=== PATIENT | female | born 1965 | race Caucasian/White ===

== ENCOUNTER 2020-06-13 07:59 | Outpatient (REF) | payer BC, SELFPAY | END 2020-06-13 08:00 | disposition home or self-care (01) | LOC: HO.BBR 07:59 | PROVIDERS: Visit Provider Internal Medicine Medical Oncology | DX: D75.1 Secondary polycythemia (principal) | CPT/HCPCS: 36415; 85018; 99195 ==

== ENCOUNTER 2020-07-11 08:22 | Outpatient (REF) | payer BC, SELFPAY | END 2020-07-11 08:23 | disposition home or self-care (01) | LOC: HO.BBR 08:22 | PROVIDERS: PCP Internal Medicine; Visit Provider Internal Medicine Medical Oncology | DX: D75.1 Secondary polycythemia (principal) | CPT/HCPCS: 85018; 99195 ==

== ENCOUNTER 2020-07-15 13:24 | Outpatient (REF) | payer BC, SELFPAY ==
--- NOTE | 2020-07-15 13:31 | MM_ITS ---
EXAMINATION: MM DIAGNOSTIC DIGITAL BREAST TOMOSYNTHESIS, RIGHT US DIAGNOSTIC ULTRASOUND BREAST, RIGHT CLINICAL INFORMATION: Ridge-like linear palpable fullness medial right breast. Family history breast cancer in sister. No pain or discharge. The lifetime risk of breast cancer based on the Tyrer-Cuzick Model is 18%. COMPARISON: Mammography: 04/11/2020, 04/04/2020, 03/30/2019, 03/15/2018, 02/16/2016 TECHNIQUE: Digital breast tomosynthesis is performed in both the craniocaudal and mediolateral oblique views along with computer-aided detection (CAD). Synthesized 2D images are generated from the tomosynthesis. Ultrasound right breast is targeted to the area of clinical concern medial right breast. Grayscale imaging and color Doppler are performed without and with harmonics. Patient is able to point to area of concern at time of imaging. FINDINGS: The breasts are heterogeneously dense, which may obscure small masses (ACR BI-RADS breast composition Category c). Parenchymal pattern is similar to prior studies. There is no mass or developing density or architectural abnormality in the area of clinical concern. There is no skin thickening or coarsening of the Prabhjot's ligaments. Some calcifications mid central 12:00 position are again similar to prior diagnostic study. They will be reassessed again with magnification views at 20 and follow-up in approximately 3 months. Ultrasound right breast demonstrates no cystic or solid mass or architectural abnormality. No skin thickening or coarsening of the Prabhjot's ligaments. There is an incidental vein just beneath the skin in the area of palpable concern with normal color flow. No venous thrombosis. Results are discussed with the patient at time of visit. Patient's palpable concern may be managed based on the clinical impression. If clinically indicated, further evaluation may be considered with surgical consult. Decision to proceed with biopsy should be based on clinical grounds and degree of clinical concern. Otherwise, patient due for follow-up right mammography in 3 months to include magnification views for the right breast calcifications, unrelated to today's clinical concern. MM/MM tomosynthesis diagnostic RT IMPRESSION: Mammography shows no significant change from prior study. Unremarkable targeted right breast ultrasound. ASSESSMENT: BI-RADS 3: Probably Benign RECOMMENDATION: 1. Patient's palpable concern may be managed based on the clinical impression. 2. Otherwise, diagnostic right mammography in 3 months for planned follow up of the probable benign calcifications unrelated to today's clinical concern. This patient's information was entered into a reminder system with a target due date for their next mammogram.
== END 2020-07-15 13:25 | disposition home or self-care (01) ==
LOC: HO.MAMMO 13:24
PROVIDERS: PCP Internal Medicine; Visit Provider Internal Medicine
DX: N63.10 Unspecified lump in the right breast, unspecified quadrant (principal)
CPT/HCPCS: 76641; 77061; 77065

== ENCOUNTER 2020-08-08 08:26 | Outpatient (REF) | payer BC, SELFPAY | END 2020-08-08 08:27 | disposition home or self-care (01) | LOC: HO.BBR 08:26 | PROVIDERS: Visit Provider Internal Medicine Medical Oncology | DX: D75.1 Secondary polycythemia (principal) | CPT/HCPCS: 36415; 85018 ==

== ENCOUNTER 2020-09-12 08:31 | Outpatient (REF) | payer BC, SELFPAY | END 2020-09-12 08:32 | disposition home or self-care (01) | LOC: HO.BBR 08:31 | PROVIDERS: Visit Provider Internal Medicine Medical Oncology | DX: D75.1 Secondary polycythemia (principal) | CPT/HCPCS: 85018; 99195 ==

== ENCOUNTER 2020-10-24 08:02 | Outpatient (REF) | payer BC, SELFPAY | END 2020-10-24 08:03 | disposition home or self-care (01) | LOC: HO.BBR 08:02 | PROVIDERS: Visit Provider Internal Medicine Medical Oncology | DX: D75.1 Secondary polycythemia (principal) | CPT/HCPCS: 85014; 85018; 99195 ==

== ENCOUNTER → 2020-11-11 10:07 | Outpatient (BNV) | payer BC, SELFPAY | PROVIDERS: PCP Internal Medicine; Visit Provider Internal Medicine Medical Oncology | DX: D75.1 Secondary polycythemia (principal) | CPT/HCPCS: 99213; 99214 ==

== ENCOUNTER 2020-11-13 08:39 | Outpatient (REF) | payer BC, SELFPAY ==
--- NOTE | ~2020-11-13 | MM_ITS ---
EXAMINATION: MM DIAGNOSTIC DIGITAL BREAST TOMOSYNTHESIS, RIGHT CLINICAL INFORMATION: Six-month Follow up right breast calcifications 3 months after negative workup for right breast palpable abnormality.. COMPARISON: Mammography: July 15, 2020 and studies dating back to January 20, 2012 TECHNIQUE: Digital breast tomosynthesis is performed in both the craniocaudal and mediolateral oblique views along with computer-aided detection (CAD). Synthesized 2D images are generated from the tomosynthesis. Spot magnification views of the right breast in craniocaudal and 90 degree mediolateral views. FINDINGS: The breasts are heterogeneously dense, which may obscure small masses (ACR BI-RADS breast composition Category c). There are no new significant masses, abnormal calcifications, or other abnormalities. There is stable appearance of the grouping of calcifications within the mid superior lateral aspect of the right breast. Results are provided to the patient at time of visit by the technologist. MM/MM tomosynthesis diagnostic RT IMPRESSION: There are no significant changes from prior study. ASSESSMENT: BI-RADS 3: Probably Benign RECOMMENDATION: Diagnostic mammography in 6 months for screening left breast study and diagnostic right breast study for calcifications.. This patient's information was entered into a reminder system with a target due date for their next mammogram.
== END 2020-11-13 08:40 | disposition home or self-care (01) ==
LOC: HO.MAMMO 08:39
PROVIDERS: PCP Internal Medicine; Visit Provider Internal Medicine
DX: R92.1 Mammographic calcification found on diagnostic imaging of breast (principal)
CPT/HCPCS: 77061; 77065

== ENCOUNTER 2020-12-11 09:33 | Outpatient (REF) | payer BC, SELFPAY | END 2020-12-11 09:34 | disposition home or self-care (01) | LOC: HO.BBR 09:33 | PROVIDERS: Visit Provider Internal Medicine Medical Oncology | DX: D75.1 Secondary polycythemia (principal) | CPT/HCPCS: 36415; 85018; 99195 ==

== ENCOUNTER 2021-01-16 08:00 | Outpatient (REF) | payer BC, SELFPAY | END 2021-01-16 08:01 | disposition home or self-care (01) | LOC: HO.BBR 08:00 | PROVIDERS: Visit Provider Internal Medicine Medical Oncology | DX: D75.1 Secondary polycythemia (principal) | CPT/HCPCS: 36415; 85018; 99195 ==

== ENCOUNTER 2021-02-06 14:19 | Inpatient (IN) | payer BC, SELFPAY ==
--- NOTE | ~2021-02-06 | CT_ITS ---
EXAMINATION: CT ABDOMEN AND PELVIS WITH CONTRAST CLINICAL INFORMATION: Lower abdominal pain and nausea COMPARISON: 08/04/2008 TECHNIQUE: Multidetector volumetric images were obtained from the superior aspect of the liver through the pubic symphysis following administration 85 mL of Omnipaque 350 intravenous contrast. Sagittal and coronal reformatted images were obtained on the technologist's workstation. Oral contrast: No This CT examination was performed using dose optimization techniques as appropriate, variously including the following: *Automated exposure control *Adjustment of mA and/or kV according to patient size (this includes techniques or standardized protocols for targeted exams where dose is matched to indication/reason for exam; i.e. extremities or head) *Use of iterative reconstruction technique DLP: 536 mGy-cm FINDINGS: LUNG BASES: The visualized lung bases are unremarkable. LIVER, GALLBLADDER, AND BILIARY TREE: The liver is normal in size, shape, and attenuation. No focal hepatic lesion or biliary ductal dilatation is present. The gallbladder is surgically absent. PANCREAS: Unremarkable. SPLEEN: Unremarkable. ADRENAL GLANDS: Unremarkable. KIDNEYS AND URETERS: There is a 3 mm nonobstructing calculus at the lower pole of the right kidney, similar to the previous study. Peripheral cortical scarring. BLADDER: Unremarkable. GASTROINTESTINAL TRACT: Circumferential wall thickening of the sigmoid colon in a region of diverticulosis with hazy attenuation/stranding of the adjacent fat compatible with acute diverticulitis. Soft tissue thickening extends toward the pelvic sidewall with 2 small extraluminal foci of gas suggesting a contained perforation. There is a fluid component in the expected location of the left adnexa which may represent an ovarian cyst or potentially a developing abscess. This fluid collection/structure measures approximately 3.5 x 1.5 cm. No obstruction. Normal appendix. ABDOMINAL WALL: Small fat-containing periumbilical hernia. LYMPH NODES: Normal. VASCULAR: Atherosclerotic calcifications of the distal abdominal aorta. PELVIC VISCERA: The uterus and right adnexa appear normal. OSSEOUS STRUCTURES: Severe degenerative disc disease at L4-L5 and L5-S1. CT/CT abdomen pelvis w con IMPRESSION: Sigmoid diverticulitis with evidence of a contained perforation and possible developing abscess in the region of the left adnexa. No obstruction.
[2021-02-06 14:57] VITALS: BP 146/101; PULSE 121; RESP 16; TEMP 37.1; O2SAT 98; BMI 27.3
[2021-02-06 15:43] LABS: MANUAL DIFF FLAG NO
[2021-02-06 15:45] LABS: Basophils Percent Auto 0.2 % (0-2); Glucose Urine UA NEG (NEG); Hematocrit 40.9 % (37-47); Hemoglobin 13.4 g/dl (12.0-16.0); Imm Gran Pct Auto 0.5 % (0.0-0.4); Leukocyte Esterase Urine NEG (NEG); Lymphocytes Absolute Auto 0.9 X10*3/uL (1.2-4.9); Mean Corpuscular HGB Conc 32.8 g/dl (31.0-35.0); Mean Corpuscular Hemoglobin 27.2 pg (27.0-33.0); Mean Corpuscular Volume 83.1 fL (80-98); Mean Platelet Volume 10.2 fL (9.4-12.3); Monocytes Absolute Auto 0.9 X10*3/uL (0.1-1.2); Monocytes Percent Auto 4.8 % (2-11); Neutrophils Absolute Auto 16.9 X10*3/uL (2.0-8.3); Neutrophils Percent Auto 89.5 % (45-73); Nitrite Urine NEG (NEG); Platelet Count 236 X10*3/uL (160-400); Red Blood Count 4.92 X10*6/uL (4.20-5.50); Red Cell Distribution Width 16.2 % (11.0-16.0); Urine Blood TRACE (NEG); Urine Ketones NEG (NEG); Urine Protein NEG (NEG-TRACE); White Blood Count 18.8 X10*3/uL (4.8-10.8)
[2021-02-06] MEDS: 0.9 % Sodium Chloride 1,000 ML 999 ML IVCONT (15:45)
[2021-02-06] MEDS: Morphine Sulfate 4 MG/ML CARTRIDGE IVPUSH ×2 (15:45→21:25)
[2021-02-06] MEDS: ondansetron HCL 4 MG/2 ML VIAL IVPUSH (15:45)
[2021-02-06 15:46] VITALS: BP 138/76; PULSE 91; RESP 16; TEMP 37.1; O2SAT 96
[2021-02-06 15:46] LABS: Appearance Urine CLEAR; Color Urine YELLOW
[2021-02-06 15:50] LABS: INTERNATIONAL NORM RATIO 1.2 (0.9-1.1); Prothrombin Time 14.1 SEC (10.8-13.0)
[2021-02-06 16:03] LABS: WBC Urine 0-2 /HPF (0-4)
[2021-02-06 16:04] LABS: Squamous Epithelial Cell Urine 1+ /LPF
[2021-02-06 16:09] LABS: Lactic Acid 0.8 mmol/L (0.5-2.0)
[2021-02-06 16:13] LABS: Alanine Aminotransferase 17 U/L (0-31); Albumin Level 4.2 g/dL (3.5-5.0); Alkaline Phosphatase 96 U/L (39-117); Anion Gap 16 (12-20); Aspartate Amino Transferase 20 U/L (5-31); Bilirubin Total 1.6 mg/dL (0.0-1.0); Blood Urea Nitrogen 13 mg/dL (9-16); Calcium 9.1 mg/dL (8.4-10.2); Carbon Dioxide 19 mmol/L (22-29); Chloride 108 mmol/L (96-108); Creatinine Clr Calc Pharmacy 486.1; Estimated Glomerular Filt Rate > 60; Glucose Random 122 mg/dL (60-115); Magnesium 1.8 mg/dL (1.6-2.6); Potassium 3.6 mmol/L (3.3-5.1); Sodium 139 mmol/L (135-145); Total Protein 6.9 g/dL (6.5-8.0)
[2021-02-06] MEDS: iohexoL 350 MG/ML 100 ML INFUS..BTL IV (16:30)
--- NOTE | 2021-02-06 17:04 | ED_ITS ---
HPI - Abdominal Pain General Chief Complaint: Abdominal Pain Stated Complaint: LOWER ABD PAIN VOMITING Time Seen by Provider: 02/06/21 14:47 Source: patient Mode of arrival: ambulatory Limitations: no limitations History of Present Illness HPI narrative: 55-year-old female with a past medical history of IBS, polycyt hemia, and anxiety presenting to the ED with complaints of lower abdominal pain that is now diffuse with associated nausea/vomiting since yesterday worse today. Denies any fevers, chills, dizziness, lightheadedness, chest pain, shortness of breath, back pain, dysuria, hematuria, increased urgency/frequency, black or bloody stools, diarrhea or constipation, recent travel or sick contacts or any other symptoms complaints or concerns at this time. Reports she is not on any blood thinners. MD elicited complaint: abdominal pain Pertinent past history: other (IBS) Onset (ago): day(s) (Since yesterday worse today) Pain Consistency: constant Location: diffuse Severity: severe Pain scale (0-10): 10 Quality: aching Relieving factors: nothing Associated symptoms: nausea and vomiting Treatments prior to arrival: other (Gas-X with no symptomatic relief) Related Data Home Medications Medication Instructions Recorded Confirmed aspirin 81 mg PO DAILY 11/11/20 11/11/20 levocetirizine [Xyzal] 5 mg PO DAILY 11/11/20 11/11/20 ibuprofen 200 mg tablet 400 mg PO Q6H PRN 01/07/21 Allergies Allergy/AdvReac Type Severity Reaction Status Date / Time acetaminophen [From Tylox] Allergy Unknown VOMITING Verified 01/07/21 08:57 codeine [Codeine] Allergy Unknown VOMITING, Verified 01/07/21 08:57 nausea/dizziness/vomiting Tylox Allergy Unknown nausea, Verified 01/07/21 08:57 vomitting, dizziness, nausea/dizziness/vomiting varenicline [From Chantix] AdvReac Irritable Verified 01/07/21 08:57 Codeine Sulfate Allergy Unknown nausea, Uncoded 11/11/20 11:24 vomitting, dizziness From Tylox Allergy Unknown VOMITING Uncoded 11/11/20 11:24 Review of Systems Review of Systems Constitutional : No Weight loss, No Fever, No Chills, No Night Sweats, No Fatigue, NoMalaise ENT/Mouth: No ear pain, No sore throat, No Difficulty swallowing Cardiovascular : No Chest Pain, No SOB, No Dyspnea on Exertion, No Orthopnea, NoEdema, No Palpitations Respiratory : No Cough, No Sputum, No Wheezing, No Dyspnea Gastrointestinal : Positive nausea/vomiting/abdominal pain, No Diarrhea, No blood streaked emesis, No coffee-ground emesis, No gross hematemesis, No blood streak stool, No gross hematochezia, No Melena Genitourinary : No irregular bleeding, No Dysuria, No Urinary Frequency, No Hematuria,No Urinary Incontinence, No Urgency, No Flank Pain Musculoskeletal : No joint pain, No Myalgias, No Joint Swelling Skin : No Skin Lesions, No rash Neuro : No Weakness, No Numbness, No Paresthesias, No Loss of Consciousness, NoDizziness, No Headache Psych : No Social Issues, Heme/Lymph: No Bruising, No Bleeding,No Lymphadenopathy Endocrine : No Polyuria, No Polydipsia, No Temperature Intolerance Yes all other systems are reviewed and are negative Physical Exam Vital Signs: Vital Signs: Last Vital Signs Temp 98.8 F 02/06/21 15:46 Pulse 91 02/06/21 15:46 Resp 16 02/06/21 15:46 BP 138/76 02/06/21 15:46 Pulse Ox 96 02/06/21 15:46 Body Mass Index 27.3 vital signs have been reviewed as normal and appeared to be correct. Blood pressure hypertensive 146/101. Heart rate tachycardic at 0121. Respiration rate normal. Temperature normal. Oxygen saturation normal. Appearance: Alert. Oriented X3. No acute distress. Head: Normal external exam. Normocephalic. Eyes: PERRLA. EOMI. Conjunctiva and sclera normal. Eyelids normal. ENT: Pharynx normal. Uvula midline. Moist mucous membranes. No trismus noted. No drooling noted. No muffled voice noted. Neck: Normal inspection. Neck supple. FROM. No adenopathy. No meningeal signs. CVS: Normal heart rate and rhythm. Heart sound normal. No murmurs noted. Pulses normal throughout. Respiratory: No respiratory distress. Painless inspiration. Breath sounds normal. No wheezes/rales/rhonchi noted. Chest nontender. No accessory muscle usage noted or decreased air movement noted. Abdomen: Soft and moderate to palpation diffusely with guarding and rebound tenderness. Nondistended. No rigidity. Bowel sounds normal in all 4 quadrants. No distention noted. No organomegaly noted. No visible injury noted. Negative Rovsing sign. Negative obturator's sign. Negative psoas sign. Negative Pablo sign. Back: No CVA tenderness. Full range of motion noted. Skin: Skin warm and dry. Normal skin color. Normal skin turgor. No rashes/lesions/lacerations noted. Extremities: Extremities exhibit normal range of motion. Extremities nontender. Neuro: Oriented X 3. No motor deficit. No sensory deficit. Reflexes normal. Normal steady gait. Course Course Course Narrative: 17pm - labs returned patient has an elevated white blood cell count 68946. Total bilirubin 1.6. Glucose 122. Otherwise all other labs are within normal limits. UA within normal limits no evidence of UTI. - CT scan of abdomen and pelvis with IV contrast reveals sigmoid diverticulitis with evidence of contained perforation and possible developing abscess in the region of the left adnexa. No obstruction. - therefore Zosyn was ordered at this time - I consulted with Dr. Nichole the general surgeon who will admit at this time - patient updated at this time she understands and agrees with this plan. MDM - Abdominal Pain MDM Narrative Medical decision making narrative: 15:10pm - 55-year-old female with a past medical history of IBS, polycythemia, and anxiety presenting to the ED with complaints of lower abdominal pain that is now diffuse with associated nausea/vomiting since yesterday worse today. Plan:Labs, blood cultures, lactic acid, fluids and a CT scan of abdomen and pelvis. Provide 4 mg of Zofran and 4 mg of morphine then re-evaluate. Medical Records Attestation: I reviewed the patient's medical records. Lab Data Attestation: I reviewed the patient's lab results. Result diagrams: 02/06/21 15:34 02/06/21 15:34 Labs: Lab Results 02/06/21 02/06/21 02/06/21 Range/Units 15:34 15:34 15:34 WBC 18.8 H (4.8-10.8) X10*3/uL RBC 4.92 (4.20-5.50) X10*6/uL Hgb 13.4 (12.0-16.0) g/dl Hct 40.9 (37-47) % MCV 83.1 (80-98) fL MCH 27.2 (27.0-33.0) pg MCHC 32.8 (31.0-35.0) g/dl RDW 16.2 H (11.0-16.0) % Plt Count 236 (160-400) X10*3/uL MPV 10.2 (9.4-12.3) fL Immature Gran % (Auto) 0.5 H (0.0-0.4) % Neut % (Auto) 89.5 H (45-73) % Lymph % (Auto) 5.0 L (20-40) % [place] % (Auto) 4.8 (2-11) % Eos % (Auto) 0.0 (0-4) % Baso % (Auto) 0.2 (0-2) % Lymph # (Auto) 0.9 L (1.2-4.9) X10*3/uL [place] # (Auto) 0.9 (0.1-1.2) X10*3/uL Eos # (Auto) 0.0 (0.0-0.4) X10*3/uL Baso # (Auto) 0.0 (0.0-0.2) X10*3/uL Abs Immat Gran (auto) 0.10 H (0.00-0.03) X10*3/uL Absolute Neuts (auto) 16.9 H (2.0-8.3) X10*3/uL Absolute Nucleated RBC 0.000 (0.0-0.012) X10*3/uL Nucleated RBC % (auto) 0.0 (0.0-0.2) /100WBC PT 14.1 H (10.8-13.0) SEC INR 1.2 H (0.9-1.1) Sodium 139 (135-145) mmol/L Potassium 3.6 (3.3-5.1) mmol/L Chloride 108 (96-108) mmol/L Carbon Dioxide 19 L (22-29) mmol/L Anion Gap 16 (12-20) BUN 13 (9-16) mg/dL Creatinine 0.71 (0.5-1.4) mg/dL Estim Creat Clear Calc 486.1 Estimated GFR > 60 Random Glucose 122 H (60-115) mg/dL Lactic Acid (0.5-2.0) mmol/L Calcium 9.1 (8.4-10.2) mg/dL Magnesium 1.8 (1.6-2.6) mg/dL Total Bilirubin 1.6 H (0.0-1.0) mg/dL AST 20 D (5-31) U/L ALT 17 (0-31) U/L Alkaline Phosphatase 96 (39-117) U/L Total Protein 6.9 (6.5-8.0) g/dL Albumin 4.2 (3.5-5.0) g/dL Urine Color Urine Appearance Urine pH (5.0-8.0) Ur Specific [place] (1.005-1.025) Urine Protein (NEG-TRACE) MG/DL Urine Glucose (UA) (NEG) MG/DL Urine Ketones (NEG) MG/DL Urine Blood (NEG) Urine Nitrite (NEG) Ur Leukocyte Esterase (NEG) Urine RBC (0) /HPF Urine WBC (0-4) /HPF Ur Squamous Epith Cells /LPF Urine Bacteria /LPF 02/06/21 02/06/21 Range/Units 15:34 15:34 WBC (4.8-10.8) X10*3/uL RBC (4.20-5.50) X10*6/uL Hgb (12.0-16.0) g/dl Hct (37-47) % MCV (80-98) fL MCH (27.0-33.0) pg MCHC (31.0-35.0) g/dl RDW (11.0-16.0) % Plt Count (160-400) X10*3/uL MPV (9.4-12.3) fL Immature Gran % (Auto) (0.0-0.4) % Neut % (Auto) (45-73) % Lymph % (Auto) (20-40) % [place] % (Auto) (2-11) % Eos % (Auto) (0-4) % Baso % (Auto) (0-2) % Lymph # (Auto) (1.2-4.9) X10*3/uL [place] # (Auto) (0.1-1.2) X10*3/uL Eos # (Auto) (0.0-0.4) X10*3/uL Baso # (Auto) (0.0-0.2) X10*3/uL Abs Immat Gran (auto) (0.00-0.03) X10*3/uL Absolute Neuts (auto) (2.0-8.3) X10*3/uL Absolute Nucleated RBC (0.0-0.012) X10*3/uL Nucleated RBC % (auto) (0.0-0.2) /100WBC PT (10.8-13.0) SEC INR (0.9-1.1) Sodium (135-145) mmol/L Potassium (3.3-5.1) mmol/L Chloride (96-108) mmol/L Carbon Dioxide (22-29) mmol/L Anion Gap (12-20) BUN (9-16) mg/dL Creatinine (0.5-1.4) mg/dL Estim Creat Clear Calc Estimated GFR Random Glucose (60-115) mg/dL Lactic Acid 0.8 (0.5-2.0) mmol/L Calcium (8.4-10.2) mg/dL Magnesium (1.6-2.6) mg/dL Total Bilirubin (0.0-1.0) mg/dL AST (5-31) U/L ALT (0-31) U/L Alkaline Phosphatase (39-117) U/L Total Protein (6.5-8.0) g/dL Albumin (3.5-5.0) g/dL Urine Color YELLOW Urine Appearance CLEAR Urine pH 6.0 (5.0-8.0) Ur Specific [place] 1.010 (1.005-1.025) Urine Protein NEG (NEG-TRACE) MG/DL Urine Glucose (UA) NEG (NEG) MG/DL Urine Ketones NEG (NEG) MG/DL Urine Blood TRACE (NEG) Urine Nitrite NEG (NEG) Ur Leukocyte Esterase NEG (NEG) Urine RBC 1-4 (0) /HPF Urine WBC 0-2 (0-4) /HPF Ur Squamous Epith Cells 1+ /LPF Urine Bacteria NONE /LPF Imaging Data CT scan of abdomen and pelvis with IV contrast: Attestation: I personally reviewed and interpreted this imaging study as follows: Radiologist's impression: FINDINGS: LUNG BASES: The visualized lung bases are unremarkable. LIVER, GALLBLADDER, AND BILIARY TREE: The liver is normal in size, shape, and attenuation. No focal hepatic lesion or biliary ductal dilatation is present. The gallbladder is surgically absent. PANCREAS: Unremarkable. SPLEEN: Unremarkable. ADRENAL GLANDS: Unremarkable. KIDNEYS AND URETERS: There is a 3 mm nonobstructing calculus at the lower pole of the right kidney, similar to the previous study. Peripheral cortical scarring. BLADDER: Unremarkable. GASTROINTESTINAL TRACT: Circumferential wall thickening of the sigmoid colon in a region of diverticulosis with hazy attenuation/stranding of the adjacent fat compatible with acute diverticulitis. Soft tissue thickening extends toward the pelvic sidewall with 2 small extraluminal foci of gas suggesting a contained perforation. There is a fluid component in the expected location of the left adnexa which may represent an ovarian cyst or potentially a developing abscess. This fluid collection/structure measures approximately 3.5 x 1.5 cm. No obstruction. Normal appendix. ABDOMINAL WALL: Small fat-containing periumbilical hernia. LYMPH NODES: Normal. VASCULAR: Atherosclerotic calcifications of the distal abdominal aorta. PELVIC VISCERA: The uterus and right adnexa appear normal. OSSEOUS STRUCTURES: Severe degenerative disc disease at L4-L5 and L5-S1. CT/CT abdomen pelvis w con IMPRESSION: Sigmoid diverticulitis with evidence of a contained perforation and possible developing abscess in the region of the left adnexa. No obstruction. Critical Care Time Critical Care Time Critical Care Time: Yes Total Critical Care Time: 60 Attestation: I personally attest to this time spent taking care of the patient Discharge Plan Discharge Clinical Impression: Diverticulitis of colon with perforation Patient Disposition: Admitted As Inpatient Prescriptions: No Action aspirin 81 mg Tablet 81 mg PO DAILY RF: 0 levocetirizine [Xyzal] 5 mg Tablet 5 mg PO DAILY RF: 0 PMFSH Past Medical History Attestation statement: The following information was validated with the patient. Medical History Anxiety Cholecystectomy planned Colon polyps Polycythemia Surgical History H/O tubal ligation Previous back surgery Family History Family History Mother Heart disease Father Heart disease Cancer Brother Heart disease Bladder cancer Sister Breast cancer Social History Social History Alcohol intake: never Patient Tobacco Use Status: Current everyday Tobacco user Use of substances other than those prescribed or required for medical reasons: No Substance Use Type: Marijuana Advance Directives: No Advance Directives Information Provided: Yes Patient : No
--- NOTE | 2021-02-06 18:00 | PHA.MEDREC ---
Pharmacy Consult ? Medication Reconciliation Pharmacy has completed the medication reconciliation.
[2021-02-06] MEDS: Piperacillin Sodium/Tazobactam 3.375 GM in 0.9 % Sodium Chloride 50 ML IV (18:02)
[2021-02-06 18:44] LABS: COVID-19 Test Negative (Negative)
[2021-02-06 20:37] VITALS: BP 149/78; PULSE 93; RESP 19; TEMP 37.1; O2SAT 99
[2021-02-06] MEDS: Heparin Sodium,Porcine 5,000 UNIT/ML VIAL 5000 UNIT SUBCUT (21:28)
[2021-02-06] MEDS: 0.9 % Sodium Chloride 1,000 ML 125 ML IVCONT (21:30)
[2021-02-06 21:36] VITALS: BP 164/89; PULSE 90; RESP 20
[2021-02-06 22:14] VITALS: BP 140/76; PULSE 85; RESP 20
[2021-02-07] VITALS (10 sets, daily range): BP systolic 131–160; BP diastolic 63–83; PULSE 85–101; RESP 14–18; TEMP 36.6–37.7; O2SAT 95–98
[2021-02-07] MEDS: Piperacillin Sodium/Tazobactam 3.375 GM in 0.9 % Sodium Chloride 50 ML IV ×5 (00:33→23:53)
[2021-02-07] MEDS: Morphine Sulfate 2 MG/ML CARTRIDGE IVPUSH ×3 (01:05→10:14)
[2021-02-07] MEDS: Heparin Sodium,Porcine 5,000 UNIT/ML VIAL 5000 UNIT SUBCUT ×3 (04:21→21:11)
[2021-02-07] MEDS: 0.9 % Sodium Chloride 1,000 ML 125 ML IVCONT ×3 (06:16→21:20)
[2021-02-07 07:27] LABS: Hematocrit 38.8 % (37-47); Hemoglobin 12.4 g/dl (12.0-16.0); Mean Corpuscular Volume 84.5 fL (80-98); Mean Platelet Volume 10.9 fL (9.4-12.3); Platelet Count 211 X10*3/uL (160-400); Red Blood Count 4.59 X10*6/uL (4.20-5.50); Red Cell Distribution Width 16.6 % (11.0-16.0); White Blood Count 16.9 X10*3/uL (4.8-10.8)
[2021-02-07] MEDS: ondansetron HCL 4 MG/2 ML VIAL IVPUSH ×2 (08:06→17:19)
[2021-02-07] MEDS: Acetaminophen 325 MG TABLET 650 MG PO (11:56)
--- NOTE | 2021-02-07 12:37 | MHC.CM.PN ---
CM MET WITH PT WHO REPORTS SHE LIVES WITH HER AND IS INDEPENDENT WITH ALL CARE AND MOBILITY. PT REPORTS HER PCP IS NIRAJ NICHOLE. PT COMPLETED A HCP TODAY NAMING HER , PIETRO, HER ONLY AGENT. CURRENT DC PLAN IS HOME WITH NO SERVICES FAMILY TO TRANSPORT
--- NOTE | 2021-02-07 14:29 | PM.HPGS ---
History of Present Illness History of Present Illness Date of Service: 02/07/21 Chief complaint: microperforated diverticulitis Narrative: Amanda Diaz is a 55 year old female who was in her normal state of health until 3 days ago when she developed mild left lower quadrant sharp pain. She reports it felt like a gas bubble. She took gas aid several times without any relief. She noted that the abdominal discomfort continue to worsen. The pain was initially 2/10 on a pain scale but by yesterday the pain was a 10/10 on a pain scale. Patient also tried ibuprofen for pain control without any relief. Patient reports the worst portion of the abdominal pain was in the left lower quadrant but she reports that the abdominal wall was sore all over. Patient had several episodes of nausea and vomiting yesterday until she had dry heaves only. Patient's last meal was 2 days ago. Last bowel movement was yesterday morning and consisted of loose stools. Patient came to the emergency department last evening to be evaluated and was found to have a microperforated diverticulitis of the sigmoid colon. There were 2 small gas bubble seen adjacent to the sigmoid colon but there was no evidence of free air. There are multiple diverticuli seen all along the sigmoid colon. Patient also had elevated white blood cell count of 18.8. Patient was admitted to the surgical service was kept NPO placed on Zosyn for IV antibiotics. Patient reports she feels much better today and her pain is about a 2/10. She reports nausea and vomiting have resolved. She is passing gas but has not had a bowel movement since admission. Patient has a low-grade temp of 100 degrees F. white blood cell count is improved to 16.9 from admission white blood cell count of 18.8. Patient does report feeling significantly better. She denies any shortness of breath or chest pain. Review of Systems Review of Systems: Yes all other systems are reviewed and are negative Constitutional: Constitutional: Denies chills, Denies daytime sleepiness, Reports difficulty sleeping, Denies excessive sweating, Reports fatigue, Reports fever(s), Denies headache(s), Reports night sweats, Denies snoring, Denies stops breathing during sleep and Denies weakness Eyes: Eyes: Denies blurry vision, Denies other visual disturbances and Denies requires corrective lenses ENT: Denies bleeding gums, Denies dysphagia, Denies headache(s), Denies hearing loss, Denies sinus pain and Denies sore throat Cardiovascular: Cardiovascular: Denies chest pain, Denies chest pain at rest, Denies chest pain with activity, Denies syncope, Denies irregular heart rhythm, Denies leg edema, Denies lightheadedness, Denies dyspnea, Denies dyspnea on exertion and Denies orthopnea Respiratory: Respiratory: Denies chest congestion, Reports cough, Denies dyspnea, Denies dyspnea on exertion, Denies snoring and Denies wheezing Gastrointestinal: Gastrointestinal: Reports abdominal pain, Denies melena, Reports bloating, Denies constipation, Denies dysphagia, Denies heartburn, Reports diarrhea, Reports nausea and Reports vomiting Genitourinary: Genitourinary: Denies hematuria, Denies nocturia and Denies nipple discharge Musculoskeletal: Musculoskeletal: Denies abnormal gait, Reports back pain, Denies deformity, Reports arthralgias, Denies joint swelling and Denies stiffness Integumentary/Breasts: Skin/Breast: Denies breast pain, Denies breast mass and Denies nipple discharge Neurologic: Denies abnormal gait, Denies syncope, Denies headache(s), Denies seizure-like activity and Denies weakness Psychiatric: Psychiatric: Denies abnormal sleep pattern, Denies anxiety, Denies depression and Denies panic attacks Endocrine: Endocrine: Denies excessive sweating, Reports fatigue, Denies heat intolerance, Denies polyphagia, Denies polydipsia and Denies polyuria Hematologic/Lymphatic: Hematologic/Lymphatic: Denies easy bleeding and Denies easy bruising Allergic/Immunologic: Allergic/Immunologic: Denies wheezing PMFSH Past Medical History Medical History (Updated 02/07/21 @ 14:35 by Katlyn Wren MD) Anxiety Colon polyps Mastocytosis Polycythemia Family History Family History Mother Heart disease Father Heart disease Cancer Brother Heart disease Bladder cancer Sister Breast cancer Brother No problems noted. Sister No problems noted. Sister No problems noted. Sister No problems noted. Surgical History Surgical History (Updated 02/07/21 @ 14:35 by Katlyn Wren MD) H/O lumbar discectomy H/O tubal ligation History of colonoscopy S/P laparoscopic cholecystectomy Social History Social History Household Members: Spouse Housing: House Do you presently have visiting nurse or other home services: No Alcohol intake: never Patient Tobacco Use Status: Current everyday Tobacco user Tobacco use type: Cigarette Cigarettes Per Day: 15 Patient Interested in Nicotine Replacement: No Patient Given Instructions on How to Stop Smoking: No Use of substances other than those prescribed or required for medical reasons: No Substance Use Type: Marijuana Currently Displaying Signs/Symptoms of Drug Intoxication Withdrawal: No Have you been hit, kicked, punched, or otherwise hurt by someone within the past year? If so, by whom?: No Do you feel safe in your current relationship?: Yes Is there a partner from a previous relationship who is making you feel unsafe now?: No Are you made to feel afraid or neglected: No Advance Directives: No Advance Directives Information Provided: Yes Do you have thoughts of harming others: None Do you have a plan to hurt others: No Plan Recently lost weight without trying: No Nutrition Risks: No Nutritional Risk Patient : No : No Poor oral hygiene: No service: No Meds Allergies Allergy/AdvReac Type Severity Reaction Status Date / Time acetaminophen [From Tylox] Allergy Unknown VOMITING Verified 02/07/21 14:37 codeine [Codeine] Allergy Unknown VOMITING, Verified 02/07/21 14:37 nausea/dizziness/vomiting Tylox Allergy Unknown nausea, Verified 02/07/21 14:37 vomitting, dizziness, nausea/dizziness/vomiting varenicline [From Chantix] AdvReac Irritable Verified 02/07/21 14:37 Codeine Sulfate Allergy Unknown nausea, Uncoded 02/07/21 14:37 vomitting, dizziness From Tylox Allergy Unknown VOMITING Uncoded 02/07/21 14:37 Active Medications: Current Medications Generic Name Dose Route Start Last Admin Trade Name Freq PRN Reason Stop Dose Admin Acetaminophen 650 mg 02/06/21 18:24 02/07/21 11:56 Acetaminophen 325 Mg Tablet PO 650 mg Q4H PRN Administration Fever Diphenhydramine HCl 25 mg 02/06/21 18:24 Diphenhydramine Hcl 25 Mg Tablet PO Q4H PRN itching Heparin Sodium (Porcine) 5,000 unit 02/06/21 20:00 02/07/21 11:57 Heparin Sodium,Porcine 5,000 Unit/Ml Vial SUBCUT 5,000 unit Q8H [facility] Administration Sodium Chloride 1,000 mls @ 125 mls/hr 02/06/21 18:30 02/07/21 14:13 Ns IVCONT 125 mls/hr .Q8H [facility] Administration Piperacillin Sod/Tazobactam 50 mls @ 100 mls/hr 02/07/21 00:00 02/07/21 14:15 Sod 3.375 gm/ Sodium Chloride IV Infused Q6H [facility] Infusion Morphine Sulfate 2 mg 02/06/21 18:24 02/07/21 10:14 Morphine Sulfate 2 Mg/Ml Cartridge IVPUSH 2 mg Q3H PRN Administration Pain, Moderate (Pain Scale 4-6 Morphine Sulfate 4 mg 02/06/21 18:24 02/06/21 21:25 Morphine Sulfate 4 Mg/Ml Cartridge IVPUSH 4 mg Q3H PRN Administration Pain, Severe (Pain Scale 7-10) Ondansetron HCl 4 mg 02/06/21 21:22 02/07/21 08:06 Ondansetron Hcl 4 Mg/2 Ml Vial IVPUSH 4 mg Q8H PRN Administration Nausea Pharmacy Consult 1 each 02/06/21 17:18 Consult Rx Perform Med Rec MISCELLANE ONCE PRN Consult order Sodium Chloride 3 ml 02/07/21 00:00 02/07/21 07:57 0.9 % Sodium Chloride Flush 3 Ml Syringe IVFLUSH Not Given QSHIFT [facility] Home Medications Medication Instructions Recorded Confirmed Last Taken Type levocetirizine [Xyzal] 5 mg PO BEDTIME 11/11/20 02/06/21 02/05/21 History aspirin 81 mg PO DAILY 02/06/21 02/06/21 Unknown History ibuprofen 200 mg PO Q6H PRN 02/06/21 02/06/21 02/06/21 History Physical Exam Vital Signs: Vital Signs: Last Vital Signs Temp 100 F 02/07/21 11:43 Pulse 101 H 02/07/21 11:43 Resp 16 02/07/21 11:43 BP 148/63 H 02/07/21 11:43 Pulse Ox 95 02/07/21 11:43 Body Mass Index 27.3 Const: General: cooperative, healthy appearing, comfortable and no acute distress Orientation/consciousness: patient oriented x3 HENMT: Head: Yes normal to inspection, Yes normocephalic and Yes atraumatic Ears: hearing grossly normal bilaterally Mouth: Normal oral and palatal mucosa present Teeth and gingiva: dentition normal Eyes: General: appearance normal, both eyes and all related structures Sclerae: sclerae normal EOM: EOMs intact bilaterally Neck: Neck: Yes normal visual inspection, Yes full ROM, Yes no lymphadenopathy, Yes trachea midline and No lymphadenopathy Thyroid: Thyroid normal Resp: Effort & Inspection: normal respiratory effort, able to speak in complete sentences, respiratory effort not decreased, no grunting and not labored Auscultation: clear to auscultation bilaterally Cardio: Jugular venous distension: no JVD Heart sounds: S1 normal heart sound present and S2 normal heart sound present GI: Inspection: Yes normal to inspection, Yes distended (Softly) and Yes obesity Palpation (GI): Soft to palpation, not firm, Tenderness to palpation present (GI) (Mild tenderness to palpation is suprapubic region in bilateral lower quadra), no guarding, not rigid and No hepatosplenomegaly present Skin: General skin exam: no rashes or lesions noted Neuro: General: patient oriented x3 Cranial nerves: Yes CN's II-XII intact bilaterally Extrem: General: Yes normal to inspection, Yes no joint enlargement, Yes no clubbing, cyanosis or edema and Yes no calf tenderness Psych: Appearance: grossly normal Mental Status: mental status grossly normal Speech and movement: Normal speech and movement present Affect: normal affect Attitude: cooperative Thought process: Normal thought process present Thought content: Normal thought content present Insight: Good insight present (Psych) Judgement: Good judgement present (Psych) Results Results Labs: Short CBC 02/06/21 02/07/21 Range/Units 15:34 06:35 WBC 18.8 H 16.9 H (4.8-10.8) X10*3/uL Hgb 13.4 12.4 (12.0-16.0) g/dl Hct 40.9 38.8 (37-47) % Plt Count 236 211 (160-400) X10*3/uL BMP 02/06/21 15:34 Sodium 139 Potassium 3.6 Chloride 108 Carbon Dioxide 19 L BUN 13 Creatinine 0.71 Calcium 9.1 Liver Function 02/06/21 Range/Units 15:34 Total Bilirubin 1.6 H (0.0-1.0) mg/dL AST 20 D (5-31) U/L ALT 17 (0-31) U/L Alkaline Phosphatase 96 (39-117) U/L Albumin 4.2 (3.5-5.0) g/dL Urine 02/06/21 Range/Units 15:34 Urine Color YELLOW Urine Appearance CLEAR Urine pH 6.0 (5.0-8.0) Ur Specific [place] 1.010 (1.005-1.025) Urine Protein NEG (NEG-TRACE) MG/DL Urine Glucose (UA) NEG (NEG) MG/DL Assessment and Plan (1) Diverticulitis of colon with perforation: Status: Acute This is a 55-year-old lady with a microperforated sigmoid diverticulitis with a few bubbles of gas located outside of the sigmoid colon but no evidence of free air on exam. White blood cell count is slowly improving and patient is clinically improved from a pain standpoint. We will continue NPO with IV fluids and IV antibiotics for now. I have discussed the need for possible sigmoid colectomy with colostomy creation if the patient has worsening clinical status such as worsening abdominal pain of fevers or worsening white blood cell count. Patient exercises understanding of the need for operative management if she does not continue to progress with non operative management. I spent about 60 minutes of time with this patient obtaining the history physical exam, the reviewing the radiologic films as well as reading and reviewing laboratory values. Procedures Date of Service Date of Service: 02/07/21
[2021-02-07] MEDS: Morphine Sulfate 4 MG/ML CARTRIDGE IVPUSH ×2 (17:21→21:18)
[2021-02-08] VITALS (9 sets, daily range): BP systolic 138–156; BP diastolic 69–91; PULSE 71–87; RESP 14–18; TEMP 36.5–37.2; O2SAT 93–97
[2021-02-08] MEDS: Morphine Sulfate 4 MG/ML CARTRIDGE IVPUSH (03:51)
[2021-02-08] MEDS: ondansetron HCL 4 MG/2 ML VIAL IVPUSH ×3 (03:51→22:03)
[2021-02-08] MEDS: Piperacillin Sodium/Tazobactam 3.375 GM in 0.9 % Sodium Chloride 50 ML IV ×3 (05:10→17:25)
[2021-02-08] MEDS: 0.9 % Sodium Chloride 1,000 ML 125 ML IVCONT ×3 (05:10→22:05)
[2021-02-08] MEDS: Morphine Sulfate 2 MG/ML CARTRIDGE IVPUSH ×4 (09:16→22:07)
--- NOTE | 2021-02-08 12:31 | P.PNGS_ITS ---
Subjective Subjective Date of Service: 02/08/21 Interval history: Patient is feeling slightly improved today compared to yesterday. She reports decreased abdominal discomfort and bloating. She is still having diarrhea. Vital signs are within normal limits. T-max was 99.9 degrees at 1154 p.m. last evening. She has been afebrile since. Patient has been up and ambulating in the hallway. Physical Exam Vital Signs: Vital Signs: Last Vital Signs Temp 98.9 F 02/08/21 11:44 Pulse 85 02/08/21 11:44 Resp 16 02/08/21 11:44 BP 156/79 H 02/08/21 11:44 Pulse Ox 95 02/08/21 11:44 Body Mass Index 27.3 Const: General: cooperative, healthy appearing, comfortable and no acute distress GI: Inspection: Yes distended (Mildly and less so than yesterday) and Yes obesity Palpation (GI): Soft to palpation, Tenderness to palpation present (GI) (Mild to moderate tenderness to deep palpation in bilateral lower quadrants ), no guarding, not rigid and hepatosplenomegaly present Extrem: General: Yes normal to inspection, Yes full ROM, Yes no clubbing, cyanosis or edema and Yes no calf tenderness Progress Note: A&P Assessment and plan (1) Diverticulitis of colon with perforation: Status: Acute Assessment and Plan: This is a 55-year-old lady on hospital day number three being treated for a microperforated diverticulitis of the sigmoid colon. Patient is clinically improved. She is no longer a having any fevers. Patient will continue Zosyn IV antibiotics for now. Patient will continue to ambulate. We will keep the patient NPO with IV fluids for now until she has more signs of resolution of abdominal discomfort. Patient will continue to ambulate. However ordered repeat CBC for the morning. Fall Risk Details Current Medications: Current Medications Generic Name Dose Route Start Last Admin Trade Name Freq PRN Reason Stop Dose Admin Acetaminophen 650 mg 02/06/21 18:24 02/07/21 11:56 Acetaminophen 325 Mg Tablet PO 650 mg Q4H PRN Administration Fever Diphenhydramine HCl 25 mg 02/06/21 18:24 Diphenhydramine Hcl 25 Mg Tablet PO Q4H PRN itching Heparin Sodium (Porcine) 5,000 unit 02/06/21 20:00 02/07/21 23:57 Heparin Sodium,Porcine 5,000 Unit/Ml Vial SUBCUT Not Given Q8H [facility] Sodium Chloride 1,000 mls @ 125 mls/hr 02/06/21 18:30 02/08/21 05:42 Ns IVCONT 125 mls/hr .Q8H [facility] Infusion Piperacillin Sod/Tazobactam 50 mls @ 100 mls/hr 02/07/21 00:00 02/08/21 05:42 Sod 3.375 gm/ Sodium Chloride IV Infused Q6H [facility] Infusion Morphine Sulfate 2 mg 02/06/21 18:24 02/08/21 09:16 Morphine Sulfate 2 Mg/Ml Cartridge IVPUSH 2 mg Q3H PRN Administration Pain, Moderate (Pain Scale 4-6 Morphine Sulfate 4 mg 02/06/21 18:24 02/08/21 03:51 Morphine Sulfate 4 Mg/Ml Cartridge IVPUSH 4 mg Q3H PRN Administration Pain, Severe (Pain Scale 7-10) Ondansetron HCl 4 mg 02/06/21 21:22 02/08/21 03:51 Ondansetron Hcl 4 Mg/2 Ml Vial IVPUSH 4 mg Q8H PRN Administration Nausea Pharmacy Consult 1 each 02/06/21 17:18 Consult Rx Perform Med Rec MISCELLANE ONCE PRN Consult order Sodium Chloride 3 ml 02/07/21 00:00 02/08/21 09:00 0.9 % Sodium Chloride Flush 3 Ml Syringe IVFLUSH Not Given QSHIFT [facility] Time Spent With Patient Time: Total time spent is greater than 50% in coordination of care (as documented) at patient's floor/unit and/or counseling patient: Time with patient: less than 15 minutes Procedures Date of Service Date of Service: 02/08/21
[2021-02-08] MEDS: Acetaminophen 325 MG TABLET 650 MG PO (13:40)
[2021-02-08] MEDS: Heparin Sodium,Porcine 5,000 UNIT/ML VIAL 5000 UNIT SUBCUT (20:09)
[2021-02-09] MEDS: Piperacillin Sodium/Tazobactam 3.375 GM in 0.9 % Sodium Chloride 50 ML IV ×5 (00:10→23:41)
[2021-02-09 03:22] VITALS: BP 149/75; PULSE 87; RESP 18; TEMP 36.8; O2SAT 97
[2021-02-09] MEDS: Morphine Sulfate 2 MG/ML CARTRIDGE IVPUSH ×3 (03:32→15:41)
[2021-02-09 04:50] LABS: Hematocrit 33.3 % (37-47); Hemoglobin 10.6 g/dl (12.0-16.0); Mean Corpuscular HGB Conc 31.8 g/dl (31.0-35.0); Mean Corpuscular Hemoglobin 26.8 pg (27.0-33.0); Mean Corpuscular Volume 84.3 fL (80-98); Mean Platelet Volume 9.9 fL (9.4-12.3); Platelet Count 202 X10*3/uL (160-400); Red Blood Count 3.95 X10*6/uL (4.20-5.50); Red Cell Distribution Width 16.3 % (11.0-16.0); White Blood Count 12.6 X10*3/uL (4.8-10.8)
[2021-02-09 05:14] LABS: Anion Gap 14 (12-20); Blood Urea Nitrogen 10 mg/dL (9-16); Carbon Dioxide 19 mmol/L (22-29); Chloride 108 mmol/L (96-108); Creatinine Clr Calc Pharmacy 116.2; Estimated Glomerular Filt Rate > 60; Glucose Random 75 mg/dL (60-115); Potassium 3.3 mmol/L (3.3-5.1); Sodium 138 mmol/L (135-145)
[2021-02-09] MEDS: 0.9 % Sodium Chloride 1,000 ML 125 ML IVCONT ×2 (05:47→19:09)
--- NOTE | 2021-02-09 07:13 | P.CDIC_ITS ---
CDI Concurrent Query Service Date: 02/09/21 Documentation Clarification: Please clarify if you are treating a proba ble/suspected/likely or confirmed: Sepsis, present on admission No Sepsis Provider Response: Other Other Diagnosis: Microperforated diverticulitis being treated with antibiotics and conservative management. PLEASE DO NOT DELETE/MODIFY EXISTING CONTENT Additional information is needed in order to code to the highest accuracy and appropriate Severity of Illness (SOI). Please clarify the information noted below in your progress notes and discharge summary. Risk Factors/Clinical Indicators/Treatments 55 year old female admitted with abdominal pain and vomiting Per H&P: Diverticulitis of sigmoid colon with perforation WBC 18.8 T 98.8, P 101 - 91, R 16, BP 138/76 Treated with IV antibiotic LA .8 CDS: Precious Arellano RN Contact Number: [phone] Please Review the information above and exercise your independent professional judgment in responding to the query. If you concur, pleas document in the PROGRESS NOTES and DISCHARGE SUMMARY. If you do not agree with the query, please document in the query above. THIS QUERY IS PART OF THE PERMANENT MEDICAL RECORD
[2021-02-09 07:53] VITALS: BP 156/86; PULSE 80; RESP 18; TEMP 36.7; O2SAT 97
--- NOTE | 2021-02-09 09:59 | PM.PNGS ---
Subjective Subjective Date of Service: 02/09/21 Interval history: Patient reports feeling much better today. She reports having less abdominal distention. Her pain is about a 3/10 on a pain scale. She has been up and ambulating. She denies any further diarrhea. She has been passing gas overnight. White blood cell count is improved to 12.6 from 18.8 on admission. Patient had 1/2 positive blood cultures from admission which are growing Gram-positive cocci in clusters and is likely a contaminant as the other culture is negative after 48 hours. I have ordered repeat blood cultures and they are pending. Physical Exam Vital Signs: Vital Signs: Last Vital Signs Temp 98.1 F 02/09/21 07:53 Pulse 80 02/09/21 07:53 Resp 18 02/09/21 07:53 BP 156/86 H 02/09/21 07:53 Pulse Ox 97 02/09/21 07:53 Body Mass Index 27.3 Const: General: cooperative, healthy appearing, comfortable and no acute distress Orientation/consciousness: patient oriented x3 HENMT: Head: Yes normal to inspection, Yes normocephalic and Yes atraumatic GI: Other: Mild tenderness to palpation in the suprapubic region left lower quadrant. No rebound or guarding. Tenderness is much less pronounced than prior exam. Inspection: Yes normal to inspection and Yes obesity Palpation (GI): Soft to palpation, not firm, no guarding, not rigid and hepatosplenomegaly present Neuro: General: patient oriented x3 Cranial nerves: Yes CN's II-XII intact bilaterally Extrem: General: Yes normal to inspection, Yes full ROM, Yes no joint enlargement, Yes no clubbing, cyanosis or edema and Yes no calf tenderness Progress Note: A&P Assessment and plan (1) Diverticulitis of colon with perforation: Status: Acute Assessment and Plan: This is a 55-year-old lady on hospital day number For being treated for a microperforated diverticulitis of the sigmoid colon. Patient is clinically improved. Patient will continue Zosyn IV antibiotics for now. patient had 1/2 blood cultures positive for cocci in clusters which is likely a contaminant. I have ordered repeat blood cultures which are pending. Given the improvement in the patient's clinical status I have ordered clear liquid diet. I will repeat blood work tomorrow. Patient will continue to ambulate. Fall Risk Details Current Medications: Current Medications Generic Name Dose Route Start Last Admin Trade Name Majorq PRN Reason Stop Dose Admin Acetaminophen 650 mg 02/06/21 18:24 02/08/21 13:40 Acetaminophen 325 Mg Tablet PO 650 mg Q4H PRN Administration Fever Diphenhydramine HCl 25 mg 02/06/21 18:24 Diphenhydramine Hcl 25 Mg Tablet PO Q4H PRN itching Heparin Sodium (Porcine) 5,000 unit 02/06/21 20:00 02/09/21 03:40 Heparin Sodium,Porcine 5,000 Unit/Ml Vial SUBCUT Not Given Q8H [facility]AB[facility] Sodium Chloride 1,000 mls @ 125 mls/hr 02/06/21 18:30 02/09/21 05:47 Ns IVCONT 125 mls/hr .Q8H [facility] Administration Piperacillin Sod/Tazobactam 50 mls @ 100 mls/hr 02/07/21 00:00 02/09/21 06:19 Sod 3.375 gm/ Sodium Chloride IV Infused Q6H [facility] Infusion Morphine Sulfate 2 mg 02/06/21 18:24 02/09/21 09:19 Morphine Sulfate 2 Mg/Ml Cartridge IVPUSH 2 mg Q3H PRN Administration Pain, Moderate (Pain Scale 4-6 Morphine Sulfate 4 mg 02/06/21 18:24 02/08/21 03:51 Morphine Sulfate 4 Mg/Ml Cartridge IVPUSH 4 mg Q3H PRN Administration Pain, Severe (Pain Scale 7-10) Ondansetron HCl 4 mg 02/06/21 21:22 02/08/21 22:03 Ondansetron Hcl 4 Mg/2 Ml Vial IVPUSH 4 mg Q8H PRN Administration Nausea Pharmacy Consult 1 each 02/06/21 17:18 Consult Rx Perform Med Rec MISCELLANE ONCE PRN Consult order Sodium Chloride 3 ml 02/07/21 00:00 02/09/21 09:05 0.9 % Sodium Chloride Flush 3 Ml Syringe IVFLUSH Not Given QSHIFT [facility] Time Spent With Patient Time: Total time spent is greater than 50% in coordination of care (as documented) at patient's floor/unit and/or counseling patient: Time with patient: less than 15 minutes Procedures Date of Service Date of Service: 02/09/21
[2021-02-09 11:25] VITALS: BP 153/87; PULSE 84; RESP 18; TEMP 36.4; O2SAT 96
[2021-02-09] MEDS: Simethicone 80 MG TAB.CHEW PO ×3 (11:56→20:57)
[2021-02-09 15:33] VITALS: BP 168/95; PULSE 82; RESP 16; TEMP 36.9; O2SAT 98
--- NOTE | 2021-02-09 15:39 | MHC.CM.PN ---
nurse rn wound care ntoe electronicmedical record reviewed along with case discussed with staff nurse . met with patient she reported she was feeling better as her pain was managed better she reported having been passing gas durning the night and has had no diarrhea , she was up ambulayting ena r room she is being treated for micro perforqtioed diverticulitis of the sigmoid colon continues on iv abx, she has been advanced to clear liquid diet discharge plan home anticipated no services pcp patient to call for post hospitla discharge follow up transportation family
[2021-02-09] MEDS: 0.9 % Sodium Chloride Flush 3 ML SYRINGE IVFLUSH (15:42)
[2021-02-09] MEDS: ondansetron HCL 4 MG/2 ML VIAL IVPUSH (17:40)
[2021-02-09] MEDS: Morphine Sulfate 4 MG/ML CARTRIDGE IVPUSH ×2 (17:43→20:51)
[2021-02-09 19:00] VITALS: BP 167/83; PULSE 81; RESP 16; TEMP 37.3; O2SAT 97
[2021-02-09 23:53] VITALS: BP 154/80; PULSE 82; RESP 16; TEMP 37.9; O2SAT 95
[2021-02-10] MEDS: Morphine Sulfate 4 MG/ML CARTRIDGE IVPUSH ×6 (02:35→23:53)
[2021-02-10] MEDS: 0.9 % Sodium Chloride 1,000 ML 125 ML IVCONT ×2 (02:39→13:15)
[2021-02-10 04:00] VITALS: BP 171/71; PULSE 96; RESP 16; TEMP 37.1; O2SAT 95
[2021-02-10] MEDS: Piperacillin Sodium/Tazobactam 3.375 GM in 0.9 % Sodium Chloride 50 ML IV (05:33)
[2021-02-10] MEDS: Simethicone 80 MG TAB.CHEW PO ×4 (05:41→23:57)
[2021-02-10] MEDS: Acetaminophen 325 MG TABLET 650 MG PO (05:42)
[2021-02-10 06:50] LABS: Hematocrit 32.8 % (37-47); Hemoglobin 10.8 g/dl (12.0-16.0); Mean Corpuscular HGB Conc 32.9 g/dl (31.0-35.0); Mean Corpuscular Hemoglobin 26.9 pg (27.0-33.0); Mean Corpuscular Volume 81.8 fL (80-98); Mean Platelet Volume 9.6 fL (9.4-12.3); Platelet Count 217 X10*3/uL (160-400); Red Blood Count 4.01 X10*6/uL (4.20-5.50); Red Cell Distribution Width 15.9 % (11.0-16.0); White Blood Count 13.7 X10*3/uL (4.8-10.8)
[2021-02-10 07:41] VITALS: BP 143/76; PULSE 70; RESP 17; TEMP 36.4; O2SAT 95
--- NOTE | 2021-02-10 08:33 | PM.PNGS ---
Subjective Subjective Date of Service: 02/10/21 Interval history: No significant overnight events. Patient reports having some increased left lower quadrant discomfort when she started clear liquids yesterday. She backed off of the clear liquids and we added IV fluids back. Patient reports she feels significantly improved this morning. She reports about a 3/10 left lower quadrant suprapubic discomfort. She reports occasional waves of nausea but no vomiting. She denies any further bouts of diarrhea. Patient has been up and ambulating without difficulty. Vital signs are within normal limits. Patient did have a T-max of 100.2 degrees at 11:30 p.m. and has been afebrile since that time frame. White blood cell count is 13.6 today which is about the same as it was yesterday. Physical Exam Vital Signs: Vital Signs: Last Vital Signs Temp 97.6 F 02/10/21 07:41 Pulse 70 02/10/21 07:41 Resp 17 02/10/21 07:41 BP 143/76 H 02/10/21 07:41 Pulse Ox 95 02/10/21 07:41 Body Mass Index 27.3 Const: General: cooperative, healthy appearing, comfortable and no acute distress GI: Other: Mild to moderate tenderness to deep palpation in the suprapubic region and left lower quadrant. No rebound or guarding. Inspection: Yes distended (Mildly but less than prior exam) Extrem: General: Yes normal to inspection, Yes no clubbing, cyanosis or edema and Yes no calf tenderness Progress Note: A&P Assessment and plan (1) Diverticulitis of colon with perforation: Status: Acute Assessment and Plan: This is a 55-year-old lady who was admitted with diverticulitis of the sigmoid colon with the few gas bubbles seen outside of the colon adjacent to the fat. Patient has set slow but steady improvement clinically. White blood cell count continues to decrease as well as the patient's abdominal pain. Continue clear liquids and IV fluids for now. I will change IV antibiotics to cefotetan in hopes of having a more rapid clinical improvement. We are still waiting repeat blood cultures as 1/2 blood cultures was positive for Gram positive cocci in clusters which was likely contaminant. Fall Risk Details Current Medications: Current Medications Generic Name Dose Route Start Last Admin Trade Name Freq PRN Reason Stop Dose Admin Acetaminophen 650 mg 02/06/21 18:24 02/10/21 05:42 Acetaminophen 325 Mg Tablet PO 650 mg Q4H PRN Administration Fever Diphenhydramine HCl 25 mg 02/06/21 18:24 Diphenhydramine Hcl 25 Mg Tablet PO Q4H PRN itching Heparin Sodium (Porcine) 5,000 unit 02/06/21 20:00 02/10/21 04:02 Heparin Sodium,Porcine 5,000 Unit/Ml Vial SUBCUT Not Given Q8H GABBY Piperacillin Sod/Tazobactam 50 mls @ 100 mls/hr 02/07/21 00:00 02/10/21 06:18 Sod 3.375 gm/ Sodium Chloride IV Infused Q6H GABBY Infusion Sodium Chloride 1,000 mls @ 125 mls/hr 02/09/21 19:00 02/10/21 02:39 Ns IVCONT 125 mls/hr .Q8H GABBY Administration Morphine Sulfate 4 mg 02/06/21 18:24 02/10/21 05:33 Morphine Sulfate 4 Mg/Ml Cartridge IVPUSH 4 mg Q3H PRN Administration Pain, Severe (Pain Scale 7-10) Ondansetron HCl 4 mg 02/06/21 21:22 02/09/21 17:40 Ondansetron Hcl 4 Mg/2 Ml Vial IVPUSH 4 mg Q8H PRN Administration Nausea Pharmacy Consult 1 each 02/06/21 17:18 Consult Rx Perform Med Rec MISCELLANE ONCE PRN Consult order Simethicone 80 mg 02/09/21 12:00 02/10/21 05:41 Simethicone 80 Mg Tab.Chew PO 80 mg QIDWMHS PRN Administration Gas Sodium Chloride 3 ml 02/07/21 00:00 02/10/21 00:18 0.9 % Sodium Chloride Flush 3 Ml Syringe IVFLUSH Not Given QSHIFT [facility] Time Spent With Patient Time: Total time spent is greater than 50% in coordination of care (as documented) at patient's floor/unit and/or counseling patient: Time with patient: less than 15 minutes Procedures Date of Service Date of Service: 02/10/21
[2021-02-10] MEDS: cefoTEtan disodium 2 GM in 0.9 % Sodium Chloride 50 ML IV ×2 (09:11→20:38)
[2021-02-10] MEDS: ondansetron HCL 4 MG/2 ML VIAL IVPUSH ×2 (10:35→19:41)
[2021-02-10 12:00] VITALS: BP 163/85; PULSE 87; RESP 16; TEMP 36.7; O2SAT 97
[2021-02-10] MEDS: 0.9 % Sodium Chloride Flush 3 ML SYRINGE IVFLUSH (15:09)
[2021-02-10 15:35] VITALS: BP 170/85; PULSE 92; RESP 20; TEMP 37.6; O2SAT 94
[2021-02-10 19:31] VITALS: BP 170/80; PULSE 89; RESP 20; TEMP 37.2; O2SAT 94
[2021-02-10] MEDS: Heparin Sodium,Porcine 5,000 UNIT/ML VIAL 5000 UNIT SUBCUT (20:37)
[2021-02-10 23:27] VITALS: BP 165/87; PULSE 96; RESP 19; TEMP 36.9; O2SAT 96
[2021-02-11] MEDS: Morphine Sulfate 4 MG/ML CARTRIDGE IVPUSH ×2 (03:50→08:44)
[2021-02-11] MEDS: Heparin Sodium,Porcine 5,000 UNIT/ML VIAL 5000 UNIT SUBCUT ×3 (03:50→20:00)
[2021-02-11 04:00] VITALS: BP 149/91; PULSE 80; RESP 18; TEMP 36.8; O2SAT 96
[2021-02-11] MEDS: 0.9 % Sodium Chloride 1,000 ML 125 ML IVCONT ×2 (04:02→13:09)
[2021-02-11] MEDS: Simethicone 80 MG TAB.CHEW PO ×4 (06:29→20:00)
[2021-02-11 06:44] LABS: Hematocrit 36.4 % (37-47); Hemoglobin 11.7 g/dl (12.0-16.0); Mean Corpuscular HGB Conc 32.1 g/dl (31.0-35.0); Mean Corpuscular Hemoglobin 26.6 pg (27.0-33.0); Mean Corpuscular Volume 82.7 fL (80-98); Mean Platelet Volume 9.9 fL (9.4-12.3); Platelet Count 276 X10*3/uL (160-400); Red Cell Distribution Width 16.1 % (11.0-16.0); White Blood Count 14.9 X10*3/uL (4.8-10.8)
[2021-02-11 08:00] VITALS: BP 153/83; PULSE 82; RESP 17; TEMP 36.8; O2SAT 97
[2021-02-11] MEDS: cefoTEtan disodium 2 GM in 0.9 % Sodium Chloride 50 ML IV ×2 (08:34→19:58)
[2021-02-11] MEDS: ondansetron HCL 4 MG/2 ML VIAL IVPUSH (08:44)
--- NOTE | 2021-02-11 09:15 | PM.PNGS ---
Subjective Subjective Date of Service: 02/11/21 Interval history: Feeling slightly improved today is able to tolerate clear liquids easier today. She denies any vomiting. She occasionally has nausea when she receives morphine. Patient has been up and ambulating without difficulty. Patient reports she intermittently becomes distended when she is unable to pass gas. She does report that the gas X is helping but would like to have it more frequently. White blood cell count is 14.6 which is slightly elevated compared to yesterday. Repeat blood cultures have been negative to date. First set of blood cultures was a contaminant so patient does not have any positive blood cultures. Physical Exam Vital Signs: Vital Signs: Last Vital Signs Temp 98.2 F 02/11/21 08:00 Pulse 82 02/11/21 08:00 Resp 17 02/11/21 08:00 BP 153/83 H 02/11/21 08:00 Pulse Ox 97 02/11/21 08:00 Body Mass Index 27.3 Const: General: cooperative, healthy appearing, comfortable and no acute distress GI: Other: Mild to moderate tenderness to palpation in the suprapubic region in the left lower quadrant without rebound or guarding. Inspection: Yes normal to inspection and Yes distended (Mild to moderately) Palpation (GI): Soft to palpation, Tenderness to palpation present (GI), no guarding and not rigid Extrem: General: Yes normal to inspection, Yes full ROM, Yes no clubbing, cyanosis or edema and Yes no calf tenderness Progress Note: A&P Assessment and plan (1) Diverticulitis of colon with perforation: Status: Acute Assessment and Plan: This is a 55-year-old lady who is being treated conservatively for a microperforated diverticulitis with slow improvement clinically. I have changed antibiotics from Zosyn to cefotetan less than 24 hours ago and the patient does feel improved. I will change him morphine to Dilaudid in hopes of decreasing nausea when patient receives pain medication. I will also increase the frequency with which she can have Gas-X in hopes of decreasing the amount of intra-abdominal gas within the bowel. I will also continue current diet of clear liquids only. Patient will continue ambulate. Fall Risk Details Current Medications: Current Medications Generic Name Dose Route Start Last Admin Trade Name Freq PRN Reason Stop Dose Admin Acetaminophen 650 mg 02/06/21 18:24 02/10/21 05:42 Acetaminophen 325 Mg Tablet PO 650 mg Q4H PRN Administration Fever Diphenhydramine HCl 25 mg 02/06/21 18:24 Diphenhydramine Hcl 25 Mg Tablet PO Q4H PRN itching Heparin Sodium (Porcine) 5,000 unit 02/06/21 20:00 02/11/21 03:50 Heparin Sodium,Porcine 5,000 Unit/Ml Vial SUBCUT 5,000 unit Q8H GABBY Administration Sodium Chloride 1,000 mls @ 125 mls/hr 02/09/21 19:00 02/11/21 04:02 Ns IVCONT 125 mls/hr .Q8H GABBY Administration Cefotetan Disodium 2 gm/ 50 mls @ 100 mls/hr 02/10/21 08:45 02/11/21 09:09 Sodium Chloride IV Infused Q12H GABBY Infusion Morphine Sulfate 4 mg 02/06/21 18:24 02/11/21 08:44 Morphine Sulfate 4 Mg/Ml Cartridge IVPUSH 4 mg Q3H PRN Administration Pain, Severe (Pain Scale 7-10) Ondansetron HCl 4 mg 02/06/21 21:22 02/11/21 08:44 Ondansetron Hcl 4 Mg/2 Ml Vial IVPUSH 4 mg Q8H PRN Administration Nausea Pharmacy Consult 1 each 02/06/21 17:18 Consult Rx Perform Med Rec MISCELLANE ONCE PRN Consult order Simethicone 80 mg 02/09/21 12:00 02/11/21 06:29 Simethicone 80 Mg Tab.Chew PO 80 mg QIDWMHS PRN Administration Gas Sodium Chloride 3 ml 02/07/21 00:00 02/11/21 08:33 0.9 % Sodium Chloride Flush 3 Ml Syringe IVFLUSH Not Given QSHIFT [facility] Time Spent With Patient Time: Total time spent is greater than 50% in coordination of care (as documented) at patient's floor/unit and/or counseling patient: Time with patient: less than 15 minutes Procedures Date of Service Date of Service: 02/11/21
[2021-02-11 11:38] VITALS: BP 159/88; PULSE 89; RESP 18; TEMP 36.4; O2SAT 96
[2021-02-11] MEDS: HYDROmorphone HCl 0.5 MG/0.5 ML SYRINGE IVPUSH (14:17)
--- NOTE | 2021-02-11 14:17 | MHC.CM.PN ---
nurse weekend caregiver note electronic medical record reviewed along with case discussed with staff nurse per documentation is being treated conservatively for microperforated diverticulitis, ;plan antibiotics from zosyn to cefotetan iv morphine alos changed to dilaudid, increaseed frequency of gas x for decreasing amount if intra abdominnal gas. remain on clear liquid diet today , encouraging patient to get out of bed to chair and ambulating in the room.met with patient, hamzah plan home no services
[2021-02-11] MEDS: Acetaminophen 325 MG TABLET 650 MG PO (14:22)
[2021-02-11 15:33] VITALS: BP 134/79; PULSE 69; RESP 12; TEMP 36.7; O2SAT 95
[2021-02-11] MEDS: 0.9 % Sodium Chloride Flush 3 ML SYRINGE IVFLUSH (16:53)
[2021-02-11 19:24] VITALS: BP 152/82; PULSE 85; RESP 16; TEMP 36.1; O2SAT 95
[2021-02-11] MEDS: diphenhydrAMINE HCL 25 MG TABLET PO (23:06)
[2021-02-11 23:50] VITALS: BP 145/69; PULSE 67; RESP 16; TEMP 36.8; O2SAT 96
[2021-02-12] VITALS (9 sets, daily range): BP systolic 141–175; BP diastolic 79–92; PULSE 64–79; RESP 14–18; TEMP 36.2–36.9; O2SAT 95–99
[2021-02-12] MEDS: HYDROmorphone HCl 0.5 MG/0.5 ML SYRINGE IVPUSH ×6 (02:03→22:54)
[2021-02-12] MEDS: Heparin Sodium,Porcine 5,000 UNIT/ML VIAL 5000 UNIT SUBCUT ×2 (03:39→11:54)
[2021-02-12 05:05] LABS: Hematocrit 31.3 % (37-47); Hemoglobin 10.1 g/dl (12.0-16.0); Mean Corpuscular HGB Conc 32.3 g/dl (31.0-35.0); Mean Corpuscular Hemoglobin 26.4 pg (27.0-33.0); Mean Corpuscular Volume 81.9 fL (80-98); Mean Platelet Volume 9.8 fL (9.4-12.3); Platelet Count 267 X10*3/uL (160-400); Red Blood Count 3.82 X10*6/uL (4.20-5.50); White Blood Count 9.6 X10*3/uL (4.8-10.8)
[2021-02-12] MEDS: Simethicone 80 MG TAB.CHEW PO ×4 (07:37→20:28)
[2021-02-12] MEDS: cefoTEtan disodium 2 GM in 0.9 % Sodium Chloride 50 ML IV ×2 (07:37→20:28)
--- NOTE | 2021-02-12 08:35 | PM.PNGS ---
Subjective Subjective Date of Service: 02/12/21 Interval history: She says she is slowly feeling better Had some loose stools Passing flatus Some mild left-sided abdominal pain but much improved she says No fever Physical Exam Vital Signs: Vital Signs: Last Vital Signs Temp 97.7 F 02/12/21 07:20 Pulse 72 02/12/21 07:20 Resp 18 02/12/21 07:20 BP 153/80 H 02/12/21 07:20 Pulse Ox 99 02/12/21 07:20 Body Mass Index 27.3 Laboratory Results - last 24 hr 02/12/21 04:29 WBC 9.6 RBC 3.82 L Hgb 10.1 L Hct 31.3 L MCV 81.9 MCH 26.4 L MCHC 32.3 RDW 16.0 Plt Count 267 MPV 9.8 Absolute Nucleated RBC 0.000 Nucleated RBC % (a uto) 0.0 Const: Other: Looks well General: healthy appearing, comfortable and no acute distress Resp: Effort & Inspection: normal respiratory effort Cardio: Rate: regular rate GI: Other: Mild tenderness on the left lower quadrant Inspection: No distended Palpation (GI): Soft to palpation, not firm and no guarding Progress Note: A&P Assessment and plan (1) Diverticulitis of colon with perforation: Status: Acute Assessment and Plan: Clinically much improved Tolerating clear liquids Plan to advance diet slowly later today Continue IV antibiotics Patient looks well Exam benign Plan explained to her Fall Risk Details Current Medications: Current Medications Generic Name Dose Route Start Last Admin Trade Name Majorq PRN Reason Stop Dose Admin Acetaminophen 650 mg 02/06/21 18:24 02/11/21 14:22 Acetaminophen 325 Mg Tablet PO 650 mg Q4H PRN Administration Fever Diphenhydramine HCl 25 mg 02/06/21 18:24 02/11/21 23:06 Diphenhydramine Hcl 25 Mg Tablet PO 25 mg Q4H PRN Administration itching Heparin Sodium (Porcine) 5,000 unit 02/06/21 20:00 02/12/21 03:39 Heparin Sodium,Porcine 5,000 Unit/Ml Vial SUBCUT 5,000 unit Q8H GABBY Administration Hydromorphone HCl 0.5 mg 02/11/21 09:28 02/12/21 05:22 Hydromorphone Hcl 0.5 Mg/0.5 Ml Syringe IVPUSH 0.5 mg Q3H PRN Administration Pain, Moderate (Pain Scale 4-6 Sodium Chloride 1,000 mls @ 125 mls/hr 02/09/21 19:00 02/12/21 03:03 Ns IVCONT Not Given .Q8H GABBY Cefotetan Disodium 2 gm/ 50 mls @ 100 mls/hr 02/10/21 08:45 02/12/21 07:56 Sodium Chloride IV Infused Q12H GABBY Infusion Ondansetron HCl 4 mg 02/06/21 21:22 02/11/21 08:44 Ondansetron Hcl 4 Mg/2 Ml Vial IVPUSH 4 mg Q8H PRN Administration Nausea Pharmacy Consult 1 each 02/06/21 17:18 Consult Rx Perform Med Rec MISCELLANE ONCE PRN Consult order Simethicone 80 mg 02/11/21 12:00 02/12/21 07:37 Simethicone 80 Mg Tab.Chew PO 80 mg QIDWMHS GABBY Administration Sodium Chloride 3 ml 02/07/21 00:00 02/12/21 08:03 0.9 % Sodium Chloride Flush 3 Ml Syringe IVFLUSH Not Given QSHIFT GABBY Time Spent With Patient Time: Total time spent is greater than 50% in coordination of care (as documented) at patient's floor/unit and/or counseling patient: Time with patient: 15 - 24 minutes Procedures Date of Service Date of Service: 02/12/21
[2021-02-12] MEDS: 0.9 % Sodium Chloride 1,000 ML 125 ML IVCONT ×2 (09:07→16:33)
[2021-02-12] MEDS: diphenhydrAMINE HCL 25 MG TABLET PO (22:54)
[2021-02-13 03:22] VITALS: BP 157/83; PULSE 74; RESP 16; TEMP 35.7; O2SAT 97
[2021-02-13 07:16] VITALS: BP 145/89; PULSE 64; RESP 18; TEMP 36.1; O2SAT 98
[2021-02-13] MEDS: cefoTEtan disodium 2 GM in 0.9 % Sodium Chloride 50 ML IV (08:33)
[2021-02-13] MEDS: Simethicone 80 MG TAB.CHEW PO ×2 (08:33→11:41)
[2021-02-13] MEDS: 0.9 % Sodium Chloride Flush 3 ML SYRINGE IVFLUSH ×2 (08:34→16:06)
[2021-02-13 11:14] VITALS: BP 158/75; PULSE 72; RESP 18; TEMP 36.6; O2SAT 96
[2021-02-13] MEDS: ondansetron HCL 4 MG/2 ML VIAL IVPUSH (11:29)
--- NOTE | 2021-02-13 12:10 | P.PNGS_ITS ---
Subjective Subjective Date of Service: 02/13/21 Interval history: Continues to feel better Has not taking any pain medications since yesterday Passing flatus and loose stools Physical Exam Vital Signs: Vital Signs: Last Vital Signs Temp 98 F 02/13/21 11:14 Pulse 72 02/13/21 11:14 Resp 18 02/13/21 11:14 BP 158/75 H 02/13/21 11:14 Pulse Ox 96 02/13/21 11:14 Body Mass Index 27.3 Const: General: comfortable and no acute distress Resp: Effort & Inspection: normal respiratory effort Cardio: Rate: regular rate GI: Inspection: No distended Palpation (GI): Soft to palpation, not firm, nontender and no guarding Progress Note: A&P Assessment and plan (1) Diverticulitis of colon with perforation: Status: Acute Assessment and Plan: Improving well Advance diet Exam remains benign Clinically looks well Likely DC home tomorrow on p.o. antibiotics Fall Risk Details Current Medications: Current Medications Generic Name Dose Route Start Last Admin Trade Name Freq PRN Reason Stop Dose Admin Acetaminophen 650 mg 02/06/21 18:24 02/11/21 14:22 Acetaminophen 325 Mg Tablet PO 650 mg Q4H PRN Administration Fever Diphenhydramine HCl 25 mg 02/06/21 18:24 02/12/21 22:54 Diphenhydramine Hcl 25 Mg Tablet PO 25 mg Q4H PRN Administration itching Hydromorphone HCl 0.5 mg 02/11/21 09:28 02/12/21 22:54 Hydromorphone Hcl 0.5 Mg/0.5 Ml Syringe IVPUSH 0.5 mg Q3H PRN Administration Pain, Moderate (Pain Scale 4-6 Cefotetan Disodium 2 gm/ 50 mls @ 100 mls/hr 02/10/21 08:45 02/13/21 09:36 Sodium Chloride IV Infused Q12H GABBY Infusion Ondansetron HCl 4 mg 02/06/21 21:22 02/13/21 11:29 Ondansetron Hcl 4 Mg/2 Ml Vial IVPUSH 4 mg Q8H PRN Administration Nausea Pharmacy Consult 1 each 02/06/21 17:18 Consult Rx Perform Med Rec MISCELLANE ONCE PRN Consult order Simethicone 80 mg 02/11/21 12:00 02/13/21 11:41 Simethicone 80 Mg Tab.Chew PO 80 mg QIDWMHS GABBY Administration Sodium Chloride 3 ml 02/07/21 00:00 02/13/21 08:34 0.9 % Sodium Chloride Flush 3 Ml Syringe IVFLUSH 3 ml QSHIFT GABBY Administration Time Spent With Patient Time: Total time spent is greater than 50% in coordination of care (as documente d) at patient's floor/unit and/or counseling patient: Time with patient: 15 - 24 minutes Procedures Date of Service Date of Service: 02/13/21
[2021-02-13 15:53] VITALS: BP 170/82; PULSE 75; RESP 20; TEMP 36.9; O2SAT 98
--- NOTE | 2021-02-13 15:58 | PM.EVENT ---
Event Note Date of Service: 02/13/21 Event Note: tolerated lunch cotinues to feel well looks comfortable good flatus no pain BP om the high side but she says she normally has good BP at home she says she is ready be discharged instructed her to call Dr. Lew as well for ffup re BP check will dc home instructions given
--- NOTE | 2021-02-13 16:07 | MHC.CM.PN ---
NURSE LOKIE DRIVER NOTE ELECTRONIC MEDICAL RECORD REVIEWED ALONG WITH CASE DISCUSSED WITH STAFF NURSE PATIENT IS BEING DISCHARGED HOME TODAY NO SERVICES
--- NOTE | 2021-02-23 14:31 | PM.DS ---
DS: Providers Provider Date of Service: 02/23/21 Date of admission: 02/06/21 18:30 Date of discharge: 02/14/21 Primary care physician: Marilynn Lew MD Admitting clinician: Katlyn Wren Attending physician on admission: Katlyn Wren Attending physician on discharge: Katlyn Wren Discharging clinician: Katlyn Wren DS: Diagnosis Discharge Diagnosis (1) Diverticulitis of colon with perforation: Status: Resolved DS: Medications Discharge Medications Home Medications: Home Medications Medication Instructions Recorded Confirmed levocetirizine [Xyzal] 5 mg PO BEDTIME 11/11/20 02/06/21 aspirin 81 mg PO DAILY 02/06/21 02/06/21 ibuprofen 200 mg PO Q6H PRN 02/06/21 02/06/21 Previous Rx's Medication Instructions Recorded amoxicillin-pot clavulanate 1 tab PO BID #14 tab 02/13/21 [Augmentin] fluconazole 150 mg tablet 150 mg PO Q3D #2 tab 02/18/21 DS: Summary Hospital Course Hospital Course: Patient was admitted through the emergency department with a microperforated diverticulitis of the sigmoid colon. Patient was started on Zosyn for IV antibiotics. Patient slowly improved and was started on clear liquid diet few days later. Patient continued to have a persistent slight white blood cell count and still had some mild left lower quadrant suprapubic pain. Antibiotics were then changed to cefotetan and the patient improved significantly. Patient was noted to have 1/2 blood cultures positive for skin art admission. She had a repeat set of blood cultures which were negative for any growth. Patient's diet was then advanced to regular diet which she tolerated well and she was discharged home on 02/14/2021. Status at Discharge Functional status at discharge: independent ambulation Overall status at discharge: patient is back to baseline Time Spent with Patient Time attestation: Total time spent providing and/or coordinating discharge services: Discharge coordination time: Less than 30 minutes Quality: Stroke Does the patient have a stroke diagnosis?: No Physical Exam Vital Signs: Vital Signs: Last Vital Signs Temp 98.5 F 02/13/21 15:53 Pulse 75 02/13/21 15:53 Resp 20 02/13/21 15:53 BP 170/82 H 02/13/21 15:53 Pulse Ox 98 02/13/21 15:53 Body Mass Index 27.3 Discharge Plan Discharge Patient Disposition: Home, Self-Care Discharge Diagnosis: Acute diverticulitis with microperforation Referrals: Marilynn Lew MD [Primary Care Provider] - 1 Week Katlyn Wren MD [Physician] - 1 Week Discharge Medications: New amoxicillin-pot clavulanate [Augmentin] 875-125 mg tablet 1 tab PO BID Qty: 14 RF: 0 Continued levocetirizine [Xyzal] 5 mg Tablet 5 mg PO BEDTIME RF: 0 aspirin 81 mg Tablet,Delayed Release (Dr/Ec) 81 mg PO DAILY RF: 0 ibuprofen 200 mg Tablet 200 mg PO Q6H PRN (Reason: Pain) RF: 0 No Action fluconazole [Diflucan] 150 mg tablet 150 mg PO Q3D Qty: 2 RF: 0 Discharge Orders: Discharge Order (Routine); Ordered 02/13/21 Ordered By: Mark Kelsey Diet: advance to usual diet Activity on Discharge: As tolerated Stand Alone Forms: Patient Portal Discharge page Care Plan Goals: Continue oral antibiotics for control of diverticulitis Health Concerns: Recent diverticulitis with microperforation Plan of Treatment: Continue oral antibiotics Follow-up with Dr. Wren Assessment: Doing well and much improved since admission Discharge Date/Time: 02/13/21 16:20
== END 2021-02-13 16:20 | disposition home or self-care (01) | DRG 244 ==
LOC: HO.ED 17:47 → HO.EDOVER 18:45 → HO.S3 19:03
PROVIDERS: Physician Assistant Medical; Admitting Provider Surgery; Emergency Provider Emergency Medicine Emergency Medical Services; PCP Internal Medicine; Visit Provider Surgery
DX: K57.20 Diverticulitis of large intestine with perforation and abscess without bleeding (principal); F17.210 Nicotine dependence, cigarettes, uncomplicated; Z71.6 Tobacco abuse counseling; Z88.5 Allergy status to narcotic agent; Z88.6 Allergy status to analgesic agent; Z79.1 Long term (current) use of non-steroidal anti-inflammatories (NSAID); Z79.899 Other long term (current) drug therapy
CPT/HCPCS: 36415; 74177; 80048; 80053; 81001; 83605; 83735; 85025; 85027; 85610; 87040; 87147; 87205; 87635; 99285; J1170; J2270; J2405; J2543; Q0163; Q9967

== ENCOUNTER 2021-02-18 10:50 | Outpatient (REF) | payer BC, SELFPAY ==
[2021-02-18 13:49] LABS: MANUAL DIFF FLAG NO
[2021-02-18 13:52] LABS: Basophils Absolute Auto 0.1 X10*3/uL (0.0-0.2); Basophils Percent Auto 0.5 % (0-2); Eosinophils Absolute Auto 0.2 X10*3/uL (0.0-0.4); Eosinophils Percent Auto 1.7 % (0-4); Hematocrit 37.5 % (37-47); Hemoglobin 11.8 g/dl (12.0-16.0); Imm Gran Abs Auto 0.03 X10*3/uL (0.00-0.03); Imm Gran Pct Auto 0.3 % (0.0-0.4); Lymphocytes Absolute Auto 2.4 X10*3/uL (1.2-4.9); Mean Corpuscular HGB Conc 31.5 g/dl (31.0-35.0); Mean Corpuscular Hemoglobin 26.6 pg (27.0-33.0); Mean Corpuscular Volume 84.7 fL (80-98); Mean Platelet Volume 9.6 fL (9.4-12.3); Monocytes Absolute Auto 0.9 X10*3/uL (0.1-1.2); Monocytes Percent Auto 8.3 % (2-11); Neutrophils Absolute Auto 6.9 X10*3/uL (2.0-8.3); Neutrophils Percent Auto 66.2 % (45-73); Platelet Count 533 X10*3/uL (160-400); Red Blood Count 4.43 X10*6/uL (4.20-5.50); Red Cell Distribution Width 17.1 % (11.0-16.0); White Blood Count 10.4 X10*3/uL (4.8-10.8)
[2021-02-18 14:16] LABS: Anion Gap 14 (12-20); Blood Urea Nitrogen 11 mg/dL (9-16); Calcium 9.1 mg/dL (8.4-10.2); Carbon Dioxide 26 mmol/L (22-29); Chloride 107 mmol/L (96-108); Estimated Glomerular Filt Rate > 60; Glucose Fasting 79 mg/dL (60-99); Potassium 4.3 mmol/L (3.3-5.1); Sodium 143 mmol/L (135-145)
== END 2021-02-18 10:51 | disposition home or self-care (01) ==
LOC: HO.HMGCLDS 10:50
PROVIDERS: PCP Internal Medicine; Visit Provider Internal Medicine
DX: K57.20 Diverticulitis of large intestine with perforation and abscess without bleeding (principal); I10 Essential (primary) hypertension
CPT/HCPCS: 36415; 80048; 85025

== ENCOUNTER → 2021-02-24 11:17 | Outpatient (BNVA) | payer BC, SELFPAY | PROVIDERS: PCP Internal Medicine; Referring Provider Internal Medicine; Visit Provider Surgery ==

== ENCOUNTER 2021-03-02 08:35 | Outpatient (REF) | payer BC, SELFPAY ==
--- NOTE | ~2021-03-02 | CT_ITS ---
EXAMINATION: CT ABDOMEN AND PELVIS WITH CONTRAST CLINICAL INFORMATION: Periumbilical pain COMPARISON: Previous CT of the abdomen and pelvis most recent 02/06/2021 TECHNIQUE: Multidetector volumetric images were obtained from the superior aspect of the liver through the pubic symphysis following administration 85 mL of Omnipaque 350 intravenous contrast. Sagittal and coronal reformatted images were obtained on the technologist's workstation. Oral contrast: Yes This CT examination was performed using dose optimization techniques as appropriate, variously including the following: *Automated exposure control *Adjustment of mA and/or kV according to patient size (this includes techniques or standardized protocols for targeted exams where dose is matched to indication/reason for exam; i.e. extremities or head) *Use of iterative reconstruction technique DLP: 430 mGy-cm FINDINGS: LUNG BASES: The visualized lung bases are unremarkable. LIVER, GALLBLADDER, AND BILIARY TREE: The liver is normal in size, shape, and attenuation. No focal hepatic lesion. Intrahepatic bile ducts appear less dilated than seen on 02/06/2021 exam. The gallbladder has been removed. The common bile duct does not appear dilated. PANCREAS: Unremarkable. SPLEEN: Unremarkable. ADRENAL GLANDS: Unremarkable. KIDNEYS AND URETERS: There are 2 adjacent 3 mm stones in the lower pole the right kidney. There is overlying thinning or scarring. The kidneys are otherwise unremarkable. BLADDER: Wall thickening of the left dome of the bladder and slight mass effect on the bladder from the left adnexa sigmoid colon. No air in the bladder or oral contrast to suggest a fistula is seen. GASTROINTESTINAL TRACT: There is diverticulosis of the colon. There is still low-attenuation wall thickening of the sigmoid colon and stranding of the pericolic fat suggestive of sigmoid diverticulitis. There are inflammatory changes with small amount of fluid and air distending to the left adnexal region. Appearance is again just above a small microperforation and secondary small bowel left adnexal abscess. Largest fluid collection measures 1.5 cm axial image 74 series 3. This 0.5 x 3.5 cm on 02/06/2021 exam. No evidence of free air or obstruction is seen small and large bowel is otherwise unremarkable. The appendix is unremarkable.. ABDOMINAL WALL: There is a small umbilical hernia containing fat. LYMPH NODES: There are small retroperitoneal lymph nodes in the abdomen and pelvis. No enlarged nodes are seen. VASCULAR: There is evidence of atherosclerotic disease. No aneurysm is seen. There is a right aortic left renal vein. PELVIC VISCERA: The uterus and right adnexa are unremarkable. There is question of a contained perforation and left adnexal abscess. This appears decreased from 02/06/2021 exam. OSSEOUS STRUCTURES: There are degenerative changes of the spine. CT/CT abdomen pelvis w con IMPRESSION: Sigmoid diverticulitis with likely contained perforation and small abscess in the left adnexa. Abscess appears decreased in size from previous exam measuring 1.5 cm.
[2021-03-02] MEDS: iohexoL 350 MG/ML 100 ML INFUS..BTL IV (11:19)
[2021-03-02] MEDS: Barium Sulfate Oral (Berry) 450 ML ORAL.SUSP 900 ML PO (11:20)
== END 2021-03-02 08:36 | disposition home or self-care (01) ==
LOC: HO.CT 08:35
PROVIDERS: PCP Internal Medicine; Visit Provider Surgery
DX: R10.33 Periumbilical pain (principal); K57.32 Diverticulitis of large intestine without perforation or abscess without bleeding
CPT/HCPCS: 74177; Q9967

== ENCOUNTER → 2021-03-13 09:29 | Outpatient (BNVA) | payer BC, SELFPAY | PROVIDERS: PCP Internal Medicine; Referring Provider Internal Medicine; Visit Provider Surgery ==

== ENCOUNTER → 2021-04-07 07:19 | Outpatient (BNVA) | payer BC, SELFPAY | PROVIDERS: PCP Internal Medicine; Referring Provider Internal Medicine; Visit Provider Physician Assistant ==

== ENCOUNTER 2021-04-07 08:27 | Outpatient (REF) | payer BC, SELFPAY ==
[2021-04-07 10:45] LABS: MANUAL DIFF FLAG NO
[2021-04-07 11:02] LABS: Basophils Absolute Auto 0.1 X10*3/uL (0.0-0.2); Basophils Percent Auto 1.1 % (0-2); Eosinophils Absolute Auto 0.2 X10*3/uL (0.0-0.4); Hematocrit 40.3 % (37-47); Imm Gran Abs Auto 0.01 X10*3/uL (0.00-0.03); Imm Gran Pct Auto 0.2 % (0.0-0.4); Lymphocytes Absolute Auto 2.7 X10*3/uL (1.2-4.9); Lymphocytes Percent Auto 40.4 % (20-40); Mean Corpuscular HGB Conc 32.3 g/dl (31.0-35.0); Mean Corpuscular Hemoglobin 27.3 pg (27.0-33.0); Mean Corpuscular Volume 84.5 fL (80-98); Mean Platelet Volume 9.8 fL (9.4-12.3); Monocytes Absolute Auto 0.6 X10*3/uL (0.1-1.2); Monocytes Percent Auto 9.6 % (2-11); Neutrophils Percent Auto 45.7 % (45-73); Platelet Count 275 X10*3/uL (160-400); Red Blood Count 4.77 X10*6/uL (4.20-5.50); Red Cell Distribution Width 16.8 % (11.0-16.0); White Blood Count 6.6 X10*3/uL (4.8-10.8)
== END 2021-04-07 08:28 | disposition home or self-care (01) ==
LOC: HO.WFDLDS 08:27
PROVIDERS: Visit Provider Physician Assistant
DX: K63.5 Polyp of colon (principal); K57.32 Diverticulitis of large intestine without perforation or abscess without bleeding; K62.5 Hemorrhage of anus and rectum
CPT/HCPCS: 36415; 85025

== ENCOUNTER 2021-04-28 12:16 | Day surgery (SDC) | payer BC, SELFPAY ==
[2021-04-21 14:58] VITALS: BMI 26.6
--- NOTE | 2021-04-27 10:48 | HO.ANESPROP2 ---
Documented by User: Eboni Morris NP 04/27/21 10:50 HPI - Anesthesia Eval Consult details Narrative: 55yo F for Colonoscopy 02/2021 [facility] [place] with microperforated diverticulitis of the sigmoid colon, no surgical intervention PMFSH Active Problems Active Problems: All Active Problems (Updated 04/21/21 @ 14:52 by Nae Jacobs RN) Breast mass, right (Acute) Erythrocytosis (Acute) IBS (irritable bowel syndrome) (Acute) Sigmoid diverticulitis (Acute) Not ready to quit smoking (Acute) Polycythemia (Acute) Colon polyps (Acute) Anxiety (Acute) Past Medical History Medical History (Updated 04/21/21 @ 14:52 by Nae Jacobs RN) Anxiety Colon polyps Diverticulitis Mastocytosis Not ready to quit smoking Polycythemia Family History Family History Mother Heart disease Father Heart disease Cancer Liver cancer Brother Heart disease Bladder cancer Sister Breast cancer Brother No problems noted. Sister No problems noted. Sister No problems noted. Sister No problems noted. Surgical History Surgical History (Updated 04/21/21 @ 14:52 by Nae Jacobs RN) H/O lumbar discectomy H/O tubal ligation History of colonoscopy S/P laparoscopic cholecystectomy Social History Social History (Updated 04/07/21 @ 12:02 by Ana Goyal PA-C) Household Members: Spouse Housing: House Do you presently have visiting nurse or other home services: No Alcohol intake: never Patient Tobacco Use Status: Current everyday Tobacco user Tobacco use type: Cigarette Cigarette Packs Per Day: 0 Cigarettes Per Day: 2 e-Cigarette/Vaping Use: Never Used Substance Use Type: Marijuana Advance Directives Information Provided: No service: No Current occupational status: employed 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 Meds Allergies Allergy/AdvReac Type Severity Reaction Status Date / Time Seasonal Allergies Allergy Severe congestion Verified 04/07/21 07:42 codeine [Codeine] Allergy Intermediate nausea/dizz Verified 04/21/21 14:54 iness/vomit ing Tylox Allergy Intermediate nausea, Verified 04/21/21 14:54 vomiting, dizziness varenicline [From Chantix] AdvReac Intermediate Irritable Verified 04/21/21 11:56 Home Medications Medication Instructions Recorded Confirmed Last Taken Type levocetirizine 5 mg tablet (Xyzal) 5 mg PO BEDTIME 11/11/20 04/21/21 02/05/21 History aspirin 81 mg tablet,delayed 81 mg PO DAILY 02/06/21 04/21/21 Unknown History release ibuprofen 200 mg tablet 200 mg PO Q6H PRN 02/06/21 04/21/21 02/06/21 History Saccharomyces boulardii 250 mg 250 mg PO BID 03/13/21 04/21/21 Unknown History capsule (Daily Probiotic (S. boulardii)) Exam Exam Date and Time: April 27, 2021 1048 Height,Weight and Vital Signs: Height 5 ft 7 in Weight 77.224 kg Pertinent Lab Results Pertinent Lab Results: Laboratory Tests 02/18/21 04/07/21 10:56 08:35 WBC 6.6 Hgb 13.0 Hct 40.3 Plt Count 275 D Sodium 143 Potassium 4.3 D Chloride 107 Carbon Dioxide 26 BUN 11 Creatinine 0.71 Assessment and Plan Assessment Anesthesia Assessment: Chart Reviewed Documented by User: Jose G Holman MD 04/28/21 13:43 PMFSH Past Medical History Medical History (Updated 04/21/21 @ 14:52 by Nae Jacobs RN) Anxiety Colon polyps Diverticulitis Mastocytosis Not ready to quit smoking Polycythemia Family History Family History Mother Heart disease Father Heart disease Cancer Liver cancer Brother Heart disease Bladder cancer Sister Breast cancer Brother No problems noted. Sister No problems noted. Sister No problems noted. Sister No problems noted. Family history of problems with anesthesia: No Surgical History Surgical History (Updated 04/21/21 @ 14:52 by Nae Jacobs RN) H/O lumbar discectomy H/O tubal ligation History of colonoscopy S/P laparoscopic cholecystectomy History of Problems with Anesthesia: No Social History Social History (Updated 04/07/21 @ 12:02 by Ana Goyal PA-C) Household Members: Spouse Housing: House Do you presently have visiting nurse or other home services: No Alcohol intake: never Patient Tobacco Use Status: Current everyday Tobacco user Tobacco use type: Cigarette Cigarette Packs Per Day: 0 Cigarettes Per Day: 2 e-Cigarette/Vaping Use: Never Used Substance Use Type: Marijuana Advance Directives Information Provided: No service: No Current occupational status: employed 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 Meds Allergies Allergy/AdvReac Type Severity Reaction Status Date / Time Seasonal Allergies Allergy Severe congestion Verified 04/07/21 07:42 codeine [Codeine] Allergy Intermediate nausea/dizz Verified 04/21/21 14:54 iness/vomit ing Tylox Allergy Intermediate nausea, Verified 04/21/21 14:54 vomiting, dizziness varenicline [From Chantix] AdvReac Intermediate Irritable Verified 04/21/21 11:56 Home Medications Medication Instructions Recorded Confirmed Last Taken Type levocetirizine 5 mg tablet (Xyzal) 5 mg PO BEDTIME 11/11/20 04/21/21 02/05/21 History aspirin 81 mg tablet,delayed 81 mg PO DAILY 02/06/21 04/21/21 Unknown History release ibuprofen 200 mg tablet 200 mg PO Q6H PRN 02/06/21 04/21/21 02/06/21 History Saccharomyces boulardii 250 mg 250 mg PO BID 03/13/21 04/21/21 Unknown History capsule (Daily Probiotic (S. boulardii)) Exam Airway Mallampati Class: II TM Dist: >3cm Neck ROM: Full Loose/Missing/Broken Teeth: No Assessment and Plan Assessment Anesthesia Assessment: Anesthesia Plan Discussed Final Anesthetic Review Family History of Problems with Anesthesia: No History of Problems with Anesthesia: No NPO: Yes ASA Class: II Final Preanesthetic Review: No Changes in Pt Med Stat, Meds/Allgs Chart Reviewed, Consent Obtained/Reviewed and Anes Risks/Benef Reviewed Patient Risk: Low Procedure Risk: Low Anesthetic Plan Anesthetic Plan: MAC: Disposition: Standard PACU
[2021-04-28 12:53] VITALS: BP 147/94; PULSE 91; RESP 16; TEMP 36.8; O2SAT 96
[2021-04-28] MEDS: Lactated Ringers 1,000 ML 100 ML IVCONT (13:06)
--- NOTE | 2021-04-28 13:20 | MHC.SHP ---
Pre-Procedural Eval Section A Date of Service: 04/28/21 The patient is an INPATIENT: No Changes since office visit: Yes Patient answered all questions; No Cold of Flu in the past 2 weeks, No New Medical Problems and No Changes in Medication The History & Physical has been completed within 30 days and I have reviewed it.: Yes Section B Chief Complaint: Diverticulitis Allergies: Allergies Allergy/AdvReac Type Severity Reaction Status Date / Time Seasonal Allergies Allergy Severe congestion Verified 04/07/21 07:42 codeine [Codeine] Allergy Intermediate nausea/dizz Verified 04/21/21 14:54 iness/vomit ing Tylox Allergy Intermediate nausea, Verified 04/21/21 14:54 vomiting, dizziness varenicline [From Chantix] AdvReac Intermediate Irritable Verified 04/21/21 11:56 Plan I have reviewed the history and physical and performed a pertinent physical examination on my patient. No changes have occurred unless specified.
--- NOTE | 2021-04-28 14:07 | PM.OP ---
Brief Operative Note Date of Service: 04/28/21 Pre-op diagnosis: Colon cancer screening, history of colon polyps, recent episode diverticulitis. Post-op diagnosis: other (Colon, diverticulosis) Procedure: COLONOSCOPY TILL CECUM WITH BIOPSIES AND SNARE POLYPECTOMY Consent: Indications for the procedure and potential complications of bleeding, perforation, reaction to medications and missed diagnosis were discussed with the patient and informed consent was obtained. Instrument: Olympus PCF H 190 L variable stiffness pediatric colonoscope Monitoring: Vital signs and clinical assessment, intermittent blood pressure monitoring, continuous EKG monitoring, Pulse oximetry and Carbon Dioxide monitoring were done throughout the procedure. Colon withdrawl time was 23 minutes. Procedure: The patient was placed in the left lateral decubitis position and pre-procedure medications were administered. After a digital rectal examination of the ano-rectum, the video colonoscope was inserted into the rectum and advanced through the colon to the cecum. The colonoscope was slowly withdrawn in a retrograde panoramic fashion and the colon mucosa was carefully examined including a retroflexed view of the rectum. Findings and interventions are described below. Procedure Difficulty: There was a tight/sharp turn at 25 to 30 cms due to severe diverticulosis which was navigated with some difficulty Findings: Terminal Ileum: Not evaluated Cecum: Normal Ascending Colon: Normal Transverse Colon: A 10-12 mm sessile polyp removed with the cold snare. A 12-15 mm sessile polyp removed with a hot snare. Descending Colon: Moderate diverticulosis Sigmoid Colon: Severe diverticulosis with luminal narrowing Rectum: Normal Ano-rectum: Normal Colon preparation: Good after some irrigation Impression and Post Procedure Diagnosis: Colonoscopy Findings: Two medium sized polyps removed. Random biopsies were obtained from the right and left colon to rule out IBD Moderate to severe diverticulosis seen in the left colon Moderate hemorrhoids on retroflexed exam. Plan: Await pathology results Patient has an appointment on 05/12/21 in the GI Clinic with JACY Gnuter Repeat Colonoscopy interval based on path results - in 3 years if polyps are adenomatous and 5 years if polyps are hyperplastic (due to a hx of adenomatous colon polyps). Colon polyps and diverticulosis handouts were given in the discharge area Surgeon: Akil Castellano MD Anesthesia: MAC (Tiffany Fischer CRNA & Leila Quezada CRNA) Was an Aircraft Engine Specialist used for this Procedure?: Yes Aircraft Engine Specialist: Hanny Mendoza Estimated blood loss (mL): 0 Pathology: other (a. right colon bxs r/o microscopic colitis b. transverse colon polyps c. left colon bxs r/o IBD, microscopic colitis) Condition: stable Disposition: PACU
[2021-04-28 14:09] VITALS: BP 109/68; PULSE 78; RESP 16; TEMP 36.1; O2SAT 100
[2021-04-28 14:24] VITALS: BP 124/84; PULSE 78; RESP 16; TEMP 36.1; O2SAT 98
--- NOTE | 2021-04-28 18:36 | P.OP_ITS ---
Operative Note Operative Note Date of Service: 04/28/21 Narrative: Pre-op diagnosis:?Colon cancer screening, history of colon polyps, recent episode diverticulitis. Post-op diagnosis:?other (Colon, diverticulosis) Procedure:? COLONOSCOPY TILL CECUM WITH BIOPSIES AND SNARE POLYPECTOMY Consent: Indications for the procedure and potential complications of bleeding, perforation, reaction to medications and missed diagnosis were discussed with the patient and informed consent was obtained. Instrument: Olympus PCF H 190 L variable stiffness pediatric colonoscope Monitoring: Vital signs and clinical assessment, intermittent blood pressure monitoring, continuous EKG monitoring, Pulse oximetry and Carbon Dioxide monitoring were done throughout the procedure. Colon withdrawl time was 23 minutes. Procedure: The patient was placed in the left lateral decubitis position and pre-procedure medications were administered. After a digital rectal examination of the ano-rectum, the video colonoscope was inserted into the rectum and advanced through the colon to the cecum. The colonoscope was slowly withdrawn in a retrograde panoramic fashion and the colon mucosa was carefully examined including a retroflexed view of the rectum. Findings and interventions are described below. Procedure Difficulty: There was a tight/sharp turn at 25 to 30 cms due to severe diverticulosis which was navigated with some difficulty Findings: Terminal Ileum: Not evaluated Cecum:? Normal Ascending Colon:? Normal Transverse Colon:? A 10-12 mm sessile polyp removed with the cold snare. A 12-15 mm sessile polyp removed with a hot snare. Descending Colon:? Moderate diverticulosis Sigmoid Colon:? Severe diverticulosis with luminal narrowing Rectum:? Normal Ano-rectum:? Normal Colon preparation:? Good after some irrigation Impression and Post Procedure Diagnosis: Colonoscopy Findings: Two medium sized polyps removed. Random biopsies were obtained from the right and left colon to rule out IBD Moderate to severe diverticulosis seen in the left colon Moderate hemorrhoids on retroflexed exam. Plan: Await pathology results Patient has an appointment on 05/12/21 in the GI Clinic with JACY Gunter Repeat Colonoscopy interval based on path results - in 3 years if polyps are adenomatous and 5 years if polyps are hyperplastic (due to a hx of adenomatous colon polyps). Colon polyps and diverticulosis handouts were given in the discharge area Surgeon:?Akil Castellano MD Anesthesia:?MAC (Tiffany Fischer CRNA & Leila Quezada CRNA) Was an Hospitalist Nocturnist Physician used for this Procedure?:?Yes Hospitalist Nocturnist Physician:?Hanny Mendoza Estimated blood loss (mL):?0 Pathology:?other (a. right colon bxs r/o microscopic colitis? b. transverse colon polyps? c. left colon bxs r/o IBD, microscopic colitis) Condition:?stable Disposition:?PACU
== END 2021-04-28 14:49 | disposition home or self-care (01) ==
PROVIDERS: PCP Internal Medicine; Visit Provider Internal Medicine Gastroenterology
PROC: 0DJD8ZZ Inspection of Lower Intestinal Tract, Via Natural or Artificial Opening Endoscopic (ICD-10-PCS; CPT 45378; principal; 2021-04-28 13:50)
DX: Z12.11 Encounter for screening for malignant neoplasm of colon (principal); Z86.010 Personal history of colon polyps; Z87.19 Personal history of other diseases of the digestive system; D12.3 Benign neoplasm of transverse colon; K57.30 Diverticulosis of large intestine without perforation or abscess without bleeding; K64.8 Other hemorrhoids; D75.1 Secondary polycythemia; Z79.899 Other long term (current) drug therapy; Z88.8 Allergy status to other drugs, medicaments and biological substances; F17.210 Nicotine dependence, cigarettes, uncomplicated; Z79.1 Long term (current) use of non-steroidal anti-inflammatories (NSAID); Z90.49 Acquired absence of other specified parts of digestive tract
CPT/HCPCS: 45385; 45380; 88305

== ENCOUNTER → 2021-05-12 11:49 | Outpatient (BNVA) | payer BC, SELFPAY | PROVIDERS: PCP Internal Medicine; Referring Provider Internal Medicine; Visit Provider Physician Assistant ==

== ENCOUNTER 2021-05-22 08:37 | Outpatient (REF) | payer BC, SELFPAY ==
--- NOTE | ~2021-05-22 | FL_ITS ---
EXAMINATION: FL BARIUM SWALLOW CLINICAL INFORMATION: Nausea. History of diverticulitis. COMPARISON: CT abdomen and pelvis exam 03/02/2021. TECHNIQUE: Barium swallow examination is performed using fluoroscopic evaluation in addition to multiple fluoroscopic spot views. The patient is imaged both upright and prone and using both thick and thin sulfate along with effervescent granules. Fluoroscopy time: 2.1 minutes DAP: 11.668 Gycm2 Images: 64 FINDINGS: Following oral administration of thick barium, barium-coated turkey and a barium tablet, in upright view there is normal propagation of bolus from the oral cavity through the pharynx, esophagus into stomach. On oral administration of barium tablet there is normal propagation of from the oral cavity, pharynx, esophagus into stomach without obstruction. On placing patient prone lying and oral administration of thin barium there is good distention of the esophagus without intraluminal narrowing or obstruction. There is small sliding hiatal hernia without reflux. FL/FL barium swallow IMPRESSION: Small sliding hiatal hernia without reflux. Rest of the barium swallow is unremarkable.
== END 2021-05-22 08:38 | disposition home or self-care (01) ==
LOC: HO.XRAY 08:37
PROVIDERS: PCP Internal Medicine; Visit Provider Physician Assistant
DX: K63.5 Polyp of colon (principal); R11.0 Nausea
CPT/HCPCS: 74220

== ENCOUNTER → 2021-05-26 15:38 | Outpatient (BNVA) | payer BC, SELFPAY | PROVIDERS: PCP Internal Medicine; Referring Provider Internal Medicine; Visit Provider Surgery ==

== ENCOUNTER → 2021-05-28 15:16 | Outpatient (BNVA) | payer BC, SELFPAY | PROVIDERS: PCP Internal Medicine; Referring Provider Internal Medicine; Visit Provider Physician Assistant ==

== ENCOUNTER 2021-06-02 07:21 | Outpatient (REF) | payer BC, SELFPAY ==
--- NOTE | ~2021-06-02 | MM_ITS ---
EXAMINATION: MM DIAGNOSTIC DIGITAL BREAST TOMOSYNTHESIS, BILATERAL CLINICAL INFORMATION: Due for yearly. Also follow-up probable benign chronic calcifications central 11:30 o'clock right breast. The lifetime risk of breast cancer based on the Tyrer-Cuzick Model is 19.5%. COMPARISON: Mammography: 11/13/2020, 07/15/2020, 04/11/2020, 04/04/2020 (BI-RADS 0), 03/30/2019, 03/15/2018, 02/16/2016. TECHNIQUE: Digital breast tomosynthesis is performed in both the craniocaudal and mediolateral oblique views along with computer-aided detection (CAD). Synthesized 2D images are generated from the tomosynthesis. Additional magnification right CC and magnification right ML views are obtained. FINDINGS: The breasts are heterogeneously dense, which may obscure small masses (ACR BI-RADS breast composition Category c). Parenchymal pattern is similar to prior exams. There is no developing density, significant mass, architectural abnormality. The axilla and skin contours are unremarkable. Right breast calcifications central 11:30 o'clock position for follow-up are stable from prior diagnostic studies and likely chronic, present on more remote prior mammography but not as well visualized on standard views without magnification. No suspicious changes. Calcifications will be reassessed again at next bilateral annual mammography. Results are provided to the patient at time of visit by the technologist. MM/MM tomosynthesis diagnostic BI IMPRESSION: 1. Right: No significant changes probable benign grouped calcifications central 11:30 o'clock. 2. Left: No mammographic evidence of malignancy. ASSESSMENT: BI-RADS 3: Probably Benign RECOMMENDATION: Diagnostic mammography at time of next annual exam, due in 12 months. This patient's information was entered into a reminder system with a target due date for their next mammogram.
== END 2021-06-02 07:22 | disposition home or self-care (01) ==
LOC: HO.MAMMO 07:21
PROVIDERS: Visit Provider Internal Medicine
DX: R92.1 Mammographic calcification found on diagnostic imaging of breast (principal)
CPT/HCPCS: 77062; 77066

== ENCOUNTER 2022-02-03 14:06 | Outpatient (REF) | payer BC, SELFPAY ==
[2022-02-03 14:51] LABS: Influenza A PCR NEGATIVE (Negative); Influenza B PCR NEGATIVE (Negative); Resp Syncy Virus RNA Qual PCR NEGATIVE (Negative); SARS COV2 PCR INHOUSE NEGATIVE (Negative)
== END 2022-02-03 14:07 | disposition home or self-care (01) ==
LOC: HO.LNP 14:06
PROVIDERS: Visit Provider Hospitalist
DX: Z20.822 Contact with and (suspected) exposure to COVID-19 (principal); R05.9 Cough, unspecified; R51.9 Headache, unspecified; R09.81 Nasal congestion
CPT/HCPCS: 0241U

== ENCOUNTER 2022-06-03 07:18 | Outpatient (REF) | payer BC, SELFPAY ==
--- NOTE | ~2022-06-03 | MM_ITS ---
EXAMINATION: MM DIAGNOSTIC DIGITAL BREAST TOMOSYNTHESIS, BILATERAL CLINICAL INFORMATION: Due for yearly. Also follow-up probable benign chronic calcifications central 11:30 right breast. Family history breast cancer, sister. The lifetime risk of breast cancer based on the Tyrer-Cuzick Model is 24%. COMPARISON: Mammography: 06/02/2021, 11/13/2020, 07/15/2020, 04/11/2020, 04/04/2020 (BI-RADS 0), 03/30/2019, 03/15/2018, 02/16/2016 TECHNIQUE: Digital breast tomosynthesis is performed in both the craniocaudal and mediolateral oblique views along with computer-aided detection (CAD). Synthesized 2D images are generated from the tomosynthesis. Additional magnification right CC and magnification right ML views are obtained. FINDINGS: The breasts are heterogeneously dense, which may obscure small masses (ACR BI-RADS breast composition Category c). There are no significant masses, abnormal calcifications, or other abnormalities. No developing density or architectural abnormality. The axilla and skin contours are unremarkable. Calcifications for follow-up central 11:30 right breast are stable from prior diagnostic exams. In retrospect, these calcifications are likely stable from prior standard views dating back to 2016. There are now considered to be benign. Results are provided to the patient at time of visit by the technologist. MM/MM tomosynthesis diagnostic BI IMPRESSION: No mammographic evidence of malignancy. ASSESSMENT: BI-RADS 2: Benign RECOMMENDATION: Routine annual mammography screening. This patient's information was entered into a reminder system with a target due date for their next mammogram.
== END 2022-06-03 07:19 | disposition home or self-care (01) ==
LOC: HO.MAMMO 07:18
PROVIDERS: PCP Internal Medicine; Visit Provider Internal Medicine
DX: R92.1 Mammographic calcification found on diagnostic imaging of breast (principal)
CPT/HCPCS: 77062; 77066

== ENCOUNTER → 2022-10-21 13:20 | Outpatient (BNVA) | payer OTHER, SELFPAY | PROVIDERS: PCP Internal Medicine; Visit Provider Internal Medicine | DX: S50.872A Other superficial bite of left forearm, initial encounter (principal); W50.3XXA Accidental bite by another person, initial encounter; Z23 Encounter for immunization | CPT/HCPCS: 90715; 99202 ==

== ENCOUNTER 2022-10-29 13:16 | Outpatient (REF) | payer BC, SELFPAY ==
--- NOTE | ~2022-10-29 | CT_ITS ---
EXAMINATION: CT CHEST SCREENING CLINICAL INFORMATION: Nicotine dependence. COMPARISON: None. TECHNIQUE: Multidetector volumetric CT imaging of the chest is performed without contrast using low dose technique. Additional 2D coronal and sagittal reformatted images and axial 3D maximum intensity projection (MIP) images are generated on the CT workstation. This CT examination was performed using dose optimization techniques as appropriate, variously including the following: *Automated exposure control *Adjustment of mA and/or kV according to patient size (this includes techniques or standardized protocols for targeted exams where dose is matched to indication/reason for exam; i.e. extremities or head) *Use of iterative reconstruction technique DLP: 42 mGy-cm. FINDINGS: LUNGS: The lungs are well expanded and clear of acute pneumonic process. There are no pulmonary nodules, mass or groundglass density. There is focal parenchymal opacity left lower lobe and left lower lobe. Question focal atelectasis. MEDIASTINUM: The thyroid lobes are symmetric and normal. The central trachea and the bronchi are widely patent. The heart size and pulmonary vascularity is normal. No pericardial effusion seen. No abnormal-sized mediastinal or hilar lymph nodes seen. CORONARY ARTERY CALCIFICATION: None visualized on this study. PLEURA: There is no pleural effusion. No pleural mass or thickening. AXILLA: There are small shotty bilateral axillary lymph nodes largest measuring 9 mm. UPPER ABDOMEN: Visualized liver, spleen, pancreas is unremarkable. The gallbladder is surgically out. OSSEOUS STRUCTURES: No aggressive lytic or sclerotic process seen. CT/CT lung screening IMPRESSION: 1. No pulmonary nodules seen. 2. There is focal parenchymal opacity left lower lobe and left lower lobe. Recommend clinical correlation and if required CT chest followup. ASSESSMENT: Lung-RADS category 1: Negative. RECOMMENDATION: Low-dose annual CT chest.
== END 2022-10-29 13:17 | disposition home or self-care (01) ==
LOC: HO.CT 13:16
PROVIDERS: PCP Internal Medicine; Visit Provider Physician Assistant Medical
DX: Z12.2 Encounter for screening for malignant neoplasm of respiratory organs (principal); F17.210 Nicotine dependence, cigarettes, uncomplicated
CPT/HCPCS: 71271; G0296

== ENCOUNTER 2023-06-10 07:22 | Outpatient (REF) | payer BC, SELFPAY ==
--- NOTE | ~2023-06-10 | MM_ITS ---
EXAMINATION: MM SCREENING DIGITAL BREAST TOMOSYNTHESIS, BILATERAL CLINICAL INFORMATION: Screening. Asymptomatic. COMPARISON: Mammography: This study is compared with prior exams dating back to 2019. TECHNIQUE: Digital breast tomosynthesis is performed in both the craniocaudal and mediolateral oblique views along with computer-aided detection (CAD). Synthesized 2D images are generated from the tomosynthesis. FINDINGS: The breasts are heterogeneously dense, which may obscure small masses (ACR BI-RADS breast composition Category c). There are no significant masses, abnormal calcifications, or other abnormalities. Few, benign calcifications are present in each breast. MM/MM tomosynthesis screening BI IMPRESSION: No mammographic evidence of malignancy. ASSESSMENT: BI-RADS BI-RADS 2 - Benign Findings RECOMMENDATION: Routine annual mammography screening. 1 year F/U This examination should not preclude the clinical evaluation of a suspicious palpable abnormality. This patient's information was entered into a reminder system with a target due date for their next mammogram.
== END 2023-06-10 07:23 | disposition home or self-care (01) ==
LOC: HO.MAMMO 07:22
PROVIDERS: PCP Internal Medicine; Visit Provider Internal Medicine
DX: Z12.31 Encounter for screening mammogram for malignant neoplasm of breast (principal)
CPT/HCPCS: 77063; 77067

== ENCOUNTER → 2023-06-10 07:45 | Outpatient (BNV) | payer BC, SELFPAY | PROVIDERS: PCP Internal Medicine; Visit Provider Radiology Diagnostic Radiology | DX: Z12.31 Encounter for screening mammogram for malignant neoplasm of breast (principal) | CPT/HCPCS: 77063; 77067 ==

== ENCOUNTER → 2023-09-22 09:09 | Outpatient (BNVA) | payer OTHER, SELFPAY | PROVIDERS: PCP Internal Medicine; Visit Provider Physician Assistant | DX: S16.1XXA Strain of muscle, fascia and tendon at neck level, initial encounter (principal); S39.012A Strain of muscle, fascia and tendon of lower back, initial encounter; S29.012A Strain of muscle and tendon of back wall of thorax, initial encounter; S63.613A Unspecified sprain of left middle finger, initial encounter; W03.XXXA Other fall on same level due to collision with another person, initial encounter | CPT/HCPCS: 73140; 99202 ==

== ENCOUNTER → 2023-09-29 14:49 | Outpatient (BNVA) | payer OTHER, SELFPAY | PROVIDERS: PCP Internal Medicine; Visit Provider Physician Assistant Medical | DX: S16.1XXA Strain of muscle, fascia and tendon at neck level, initial encounter (principal); S63.613A Unspecified sprain of left middle finger, initial encounter; W03.XXXA Other fall on same level due to collision with another person, initial encounter | CPT/HCPCS: 99213 ==

== ENCOUNTER → 2023-10-13 09:23 | Outpatient (BNVA) | payer OTHER, SELFPAY | PROVIDERS: PCP Internal Medicine; Visit Provider Physician Assistant Medical | DX: S16.1XXD Strain of muscle, fascia and tendon at neck level, subsequent encounter (principal); W03.XXXD Other fall on same level due to collision with another person, subsequent encounter | CPT/HCPCS: 72050; 99213 ==

== ENCOUNTER → 2023-10-27 15:34 | Outpatient (BNVA) | payer OTHER, SELFPAY | PROVIDERS: PCP Internal Medicine; Visit Provider Physician Assistant Medical | DX: S16.1XXD Strain of muscle, fascia and tendon at neck level, subsequent encounter (principal); S46.812D Strain of other muscles, fascia and tendons at shoulder and upper arm level, left arm, subsequent encounter; W03.XXXD Other fall on same level due to collision with another person, subsequent encounter | CPT/HCPCS: 99213 ==

== ENCOUNTER 2023-11-01 09:34 | Outpatient (AMB) | payer BC, SELFPAY ==
[2023-11-01 09:44] VITALS: BP 146/80; BMI 27.4
--- NOTE | 2023-11-01 09:44 | A.OFFPC_ITS ---
Vital Signs 11/01/23 09:44 Height 5 ft 7 in Weight 175 lb BMI 27.4 BP 146/80 H Blood Pressure Location Rt brachial Position Sitting Intake Visit Reasons: Anxiety/Fatigue/Unable To Sleep Intake Note: Pt is here today c/o anxiety/fatigue/unable to sleep Allergies Seasonal Allergies Allergy (Severe, Verified 11/01/23 10:05) congestion acetaminophen [From Tylox] Allergy (Intermediate, Verified 11/01/23 10:05) Nausea and Vomiting, Dizziness codeine [Codeine] Allergy (Intermediate, Verified 11/01/23 10:05) nausea/dizziness/vomiting oxycodone [From Tylox] Allergy (Intermediate, Verified 11/01/23 10:05) Nausea and Vomiting, Dizziness varenicline [From Chantix] Adverse Reaction (Intermediate, Verified 11/01/23 10:05) Irritable Medication List - Last Reconciled 11/01/23 by Marilynn Lew MD epinephrine (EpiPen 2-Bud) 0.3 mg (0.3 mL) IM Q4H PRN ibuprofen 200 mg PO Q6H PRN levocetirizine (Xyzal) 5 mg PO BEDTIME methylcellulose (laxative) (Fiber Therapy (methylcellulose)) 500 mg PO BID Saccharomyces boulardii (Daily Probiotic (S. boulardii)) 250 mg PO BID Tobacco use date assessed: 11/01/23 Dental Screening Dental Screen Date: 11/01/23 Did you have a dental visit in the last 12 months?: No Was dental information given to patient?: Patient has dentist HPI Anxiety/Fatigue/Unable To Sleep HPI Details 58-year-old lady here today complaining of frequent anxiety attacks. 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 Has been having difficulty sleeping at night. She denies having anxiety attacks in the past. [facility] Medical History Postmenopausal Nicotine dependence, cigarettes, uncomplicated Tubular adenoma of colon Headache Diverticulitis Mastocytosis Anxiety Surgical History History of endometrial ablation (~2003) History of laparoscopic cholecystectomy History of lumbar discectomy History of tubal ligation History of colonoscopy Family History Mother Heart disease Father Heart disease Cancer Liver cancer Brother Heart disease Bladder cancer Sister Breast cancer Brother No problems noted. Sister No problems noted. Sister No problems noted. Sister No problems noted. 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 1. Little interest or pleasure in doing things: several days 2. Feeling down, depressed, or hopeless: not at all 3. Trouble falling or staying asleep, or sleeping too much: more than half the days 4. Feeling tired or having little energy: several days 5. Poor appetite or overeating: several days 6. Feeling bad about yourself - or that you are a failure or have let yourself or your family down: not at all 7. Trouble concentrating on things, such as reading the newspaper or watching television: not at all 8. Moving or speaking so slowly that other people could have noticed. Or the opposite - being so fidgety or restless that you have been moving around a lot more than usual: not at all 9. Thoughts that you would be better off or of hurting yourself in some way: not at all Total score: 5 Depression Screening Interpretation: Negative Depression Screening Done: Yes 04115 - PHQ-9 Billing: Yes Source: Developed by Drs. Nilo García, Briana Mcdonald, Dayron cOhoa and colleagues, with an educational kerri from [employer]. Thrive Questionnaire Date Thrive assessed: 01/26/22 I am a: Patient What is your living situation today?: I have a steady place to live Within the past 12 months, did the food you bought not last and you didn't have the money to get more?: Never true Within the past 12 months, did you worry whether your food would run out before you got money to buy more?: Never true Do you have trouble paying for medicines?: No Do you have trouble getting transportation to medical appointments?: No Do you have trouble paying your heating and electricity bill?: No Do you have trouble taking care of your child, family member or friend?: No Do you have trouble with day-to-day activities such as bathing, preparing meals, shopping, managing finances, etc.?: No Are you currently unemployed and looking for a job?: No Are you interested in more education?: No Please select the resources that you would like help with: None THRIVE Score: 0 AUDIT C Alcohol Use Questionnaire (AUDIT-C) 1. How often do you have a drink containing alcohol?: Monthly or less 2. How many drinks containing alcohol do you have on a typical day when you are drinking?: 1 or 2 3. How often do you have six or more drinks on one occasion?: Never Total Score: 1 DON-7 AMB Questionnaire DON-7 Date DON - 7 assessed: 11/01/23 Feeling nervous, anxious, or on edge: 1 = Several days Not being able to stop or control worryin = Several days Worrying too much about different things: 1 = Several days Trouble relaxin = Several days Being so restless that it is hard to sit still: 1 = Several days Becoming easily annoyed or irritable: 1 = Several days Feeling afraid as if something awful might happen: 1 = Several days Total DON-7 score (0-4 normal; 5-9 mild; 10-14 moderate; 15-21 severe): 7 Source: Developed by Drs. Nilo García, Briana Mcdonald, Dayron Ochoa and colleagues, with an educational kerri from [employer]. DON-7 Assessment Billing DON-7 Assessment Tool: DON-7 Assessment 04115 Review of Systems Const All systems reviewed & are unremarkable except as noted in HPI and below Physical exam (Primary Care) Vital Signs: Last Vital Signs BP 146/80 H 11/01/23 09:44 BMI result Body Mass Index 27.4 Tobacco/Smoking Status: Tobacco use Status Tobacco use date assessed 11/01/23 11/01/23 09:51 Patient Tobacco Use Status Current everyday Tobacco 11/01/23 09:46 Tobacco use type Cigarette 11/01/23 09:46 e-Cigarette/Vaping Use Never Used 11/01/23 09:46 PHQ-9: PHQ-9 Score PHQ-9: Total score 5 11/01/23 10:07 Depression Screening Interpretation: Negative Thrive Assessment: Date of Thrive Assessment Date Thrive assessed 01/26/22 11/01/23 09:46 Const General: no acute distress Nutritional Appearance: average body habitus Orientation/consciousness: patient oriented x3 HENMT Mouth: Normal oral and palatal mucosa present and moist mucous membranes Neck Neck: Yes full ROM, Yes no lymphadenopathy and Yes supple Resp Effort & Inspection: normal respiratory effort and able to speak in complete sentences Auscultation: clear to auscultation bilaterally Cardio Rate: regular rate Rhythm: regular rhythm Heart sounds: S1 normal heart sound present and S2 normal heart sound present GI Inspection: Yes normal to inspection Palpation (GI): Soft to palpation and Tenderness to palpation present (GI) (Slight on deep palpation) in the LLQ Auscultation: Hyperactive bowel sounds present Neuro General: patient oriented x3, moves all extremities, no focal motor deficits and CN's II-XI intact bilaterally Extrem General: Yes full ROM, Yes no joint enlargement, Yes no pedal edema and Yes normal gait Psych Appearance: grossly normal and well kempt Mental Status: mental status grossly normal Speech and movement: Normal speech and movement present Affect: normal affect Attitude: cooperative Assessment and Plan Assessment & Plan (1) Anxiety: Code(s): F41.9 - Anxiety disorder, unspecified Plan: Patient does not want to see a therapist nor does she want to start any medication that she needs to take regularly. Has been taking lorazepam 0.5 mg once a day as needed for acute anxiety attacks which has been helping. She was also given a prescription for hydroxyzine to take only at night as needed for acute episodes of insomnia. Return to the clinic if after 3 weeks no improvement of symptoms Medications: New hydroxyzine HCl 25 mg PO BEDTIME PRN 30 tabs 0RF insomnia/allergy symptoms Refilled lorazepam 0.5 mg PO BID PRN 30 tabs 0RF anxiety attack F41.9 - Anxiety d isorder, unspecified Coding Level of Care Code Est Pt Level 3 (50584) Diagnoses Anxiety F41.9 Additional Codes DON-7 Assessment Billing - DON-7 Assessment Tool: DON-7 Assessment 26668 ([id number])
== END 2023-11-01 10:24 | disposition home or self-care (01) ==
PROVIDERS: PCP Internal Medicine; Visit Provider Internal Medicine
DX: F41.9 Anxiety disorder, unspecified (principal)
CPT/HCPCS: 99213

== ENCOUNTER 2023-11-11 18:34 | Outpatient (REF) | payer OTHER, BC, SELFPAY ==
--- NOTE | ~2023-11-11 | MR_ITS ---
EXAMINATION: MR CERVICAL SPINE WITHOUT CONTRAST CLINICAL INFORMATION: Left-sided cervicalgia COMPARISON: Cervical spine radiographs 10/13/2023 TECHNIQUE: MRI of the cervical spine was obtained using routine sequences without contrast. FINDINGS: Motion degraded examination. The craniocervical junction is intact. Straightening of the normal cervical lordosis. Trace anterolisthesis at C4-C5 and slight retrolisthesis at C5-C6. Vertebral body heights are normal without acute compression fracture. No suspicious osseous lesion. Multilevel disc desiccation with moderate C5-C6 disc height loss. There are multilevel degenerative changes with level by level detail as follows: C2-C3: Asymmetric hypertrophic right facet arthrosis. Shallow central disc protrusion. No spinal canal or neural foraminal stenosis. C3-C4: Asymmetric hypertrophic right facet arthrosis. No spinal canal or neural foraminal stenosis. C4-C5: Asymmetric right uncovertebral joint hypertrophy and hypertrophic left facet arthrosis. No spinal canal stenosis. Moderate left without right neural foraminal stenosis. No spinal canal or neural foraminal stenosis. C5-C6: Disc osteophyte complex with significant bilateral uncovertebral joint hypertrophy and bilateral facet arthrosis. Moderate spinal canal and severe bilateral neural foraminal stenosis. C6-C7: Shallow left central disc protrusion and uncovertebral spurring. Mild to moderate left neural foraminal stenosis. No spinal canal or right neural foraminal stenosis. C7-T1: Mild bilateral facet arthrosis. No spinal canal or neural foraminal stenosis. Motion artifact significantly limits assessment for cord signal abnormality however no gross abnormality is appreciated. No epidural fluid collection, mass, or hematoma. No significant abnormalities of the paraspinal musculature. The flow voids of the major cervical vessels are maintained. The visualized intracranial structures are normal. No demonstrated abnormalities in the visualized neck.
== END 2023-11-11 18:35 | disposition home or self-care (01) ==
LOC: HO.MRI 18:34
PROVIDERS: PCP Internal Medicine; Visit Provider Internal Medicine
DX: M54.2 Cervicalgia (principal)

== ENCOUNTER 2023-11-13 10:06 | Outpatient (REF) | payer OTHER, BC, SELFPAY ==
--- NOTE | ~2023-11-13 | MR_ITS ---
EXAMINATION: MR CERVICAL SPINE WITHOUT CONTRAST CLINICAL INFORMATION: Left-sided cervicalgia COMPARISON: Cervical spine radiographs 10/13/2023 TECHNIQUE: MRI of the cervical spine was obtained using routine sequences without contrast. FINDINGS: Motion degraded examination. The craniocervical junction is intact. Straightening of the normal cervical lordosis. Trace anterolisthesis at C4-C5 and slight retrolisthesis at C5-C6. Vertebral body heights are normal without acute compression fracture. No suspicious osseous lesion. Multilevel disc desiccation with moderate C5-C6 disc height loss. There are multilevel degenerative changes with level by level detail as follows: C2-C3: Asymmetric hypertrophic right facet arthrosis. Shallow central disc protrusion. No spinal canal or neural foraminal stenosis. C3-C4: Asymmetric hypertrophic right facet arthrosis. No spinal canal or neural foraminal stenosis. C4-C5: Asymmetric right uncovertebral joint hypertrophy and hypertrophic left facet arthrosis. No spinal canal stenosis. Moderate left without right neural foraminal stenosis. No spinal canal or neural foraminal stenosis. C5-C6: Disc osteophyte complex with significant bilateral uncovertebral joint hypertrophy and bilateral facet arthrosis. Moderate spinal canal and severe bilateral neural foraminal stenosis. C6-C7: Shallow left central disc protrusion and uncovertebral spurring. Mild to moderate left neural foraminal stenosis. No spinal canal or right neural foraminal stenosis. C7-T1: Mild bilateral facet arthrosis. No spinal canal or neural foraminal stenosis. Motion artifact significantly limits assessment for cord signal abnormality however no gross abnormality is appreciated. No epidural fluid collection, mass, or hematoma. No significant abnormalities of the paraspinal musculature. The flow voids of the major cervical vessels are maintained. The visualized intracranial structures are normal. No demonstrated abnormalities in the visualized neck. MR/MR cervical spine wo con IMPRESSION: 1. Multilevel cervical spondylosis as described above, worst at C5-C6 where there is moderate spinal canal and severe bilateral neural foraminal stenosis. 2. Motion artifact significantly limits assessment for cord signal abnormality however no gross abnormality is appreciated.
== END 2023-11-13 10:07 | disposition home or self-care (01) ==
LOC: HO.MRI 10:06
PROVIDERS: Visit Provider Internal Medicine
DX: M54.2 Cervicalgia (principal)
CPT/HCPCS: 72141

== ENCOUNTER → 2023-11-17 09:39 | Outpatient (BNVA) | payer OTHER, SELFPAY | PROVIDERS: PCP Internal Medicine; Visit Provider Physician Assistant Medical | DX: S16.1XXD Strain of muscle, fascia and tendon at neck level, subsequent encounter (principal); S46.819D Strain of other muscles, fascia and tendons at shoulder and upper arm level, unspecified arm, subsequent encounter; W03.XXXD Other fall on same level due to collision with another person, subsequent encounter | CPT/HCPCS: 99213 ==

== ENCOUNTER 2023-11-18 07:00 | Outpatient (RCR) | payer OTHER, BC, SELFPAY ==
--- NOTE | 2023-10-11 20:01 | MHC.PT.EP ---
[facility] [place] Office [place] Office [place] Office [address] Tim Cosme [address] [phone] F: [phone] F: [phone] F: [phone] F: [phone] Physical Therapy Plan of Care Date of Evaluation: 10/11/23 Date of Surgery: Diagnosis: Cervical Sprain. 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 Pt is deemed an appropriate candidate to receive skilled PT services to address their physical impairments in order to improve their functional ability. Frequency and Duration: The patient will be seen 2 x/ wk x 5 wks. Short Term Goals: initiate home program. Improve baseline pain to < 3/10; initial: 4/10. L hand n/t Sx abolished. 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 Improve NDI outcome measure by at least 9 points. Pt will reports at most only slightly disturbed of sleep d/t cervical pain; initial: moderately disturbed. Pt will report Slight infrequent ROY; initial: ROY that are moderate and frequent. Treatment Plan: Modalities to reduce pain, spasms and effusion. Manual therapy to restore motion and function. Therapeutic exercise to improve strength and flexibility. Neuromuscular re-education for posture and balance. Therapeutic activities to return to functional activities of daily living. Electronically signed by: Jaison Adams PT. Please sign and return to therapist. Thank you for your referral.
--- NOTE | 2023-11-18 12:37 | MHC.PT.DC ---
[facility] [place] [facility] [place] [facility] [place] [facility] [address] Tim Cosme [address] [phone] F: [phone] F: [phone] F: [phone] F: [phone] Physical Therapy Discharge Report Diagnosis: Cervical Sprain. Date of Surgery: Date of Evaluation: 10/11/23 Date of Discharge: 11/18/23 Treatments to Date: 9 Cancellations to Date: 1 No Shows to Date: Discharge Status: Improved Function Independent with HEP Recommend MD Follow-up Discharge Summary: 11/17: Amanda has been an active participant in her therapy in and out of the clinic we are in agreement with [facility] today as she is I with her home program, is improved of her condition and she had made good progress towards her goals however she does persist with L hand n/t and neck / L shoulder pain and reports she is awaiting consult with a specialist. Electronically signed by: Jaison Adams PT. Please sign and return to therapist. Thank you for your referral.
== END 2024-01-23 15:15 | disposition home or self-care (01) ==
LOC: HO.PT 07:00
PROVIDERS: PCP Internal Medicine; Visit Provider Physician Assistant Medical
DX: S16.1XXD Strain of muscle, fascia and tendon at neck level, subsequent encounter (principal)
CPT/HCPCS: 97035; 97110; 97140; 97161; 97164

== ENCOUNTER 2024-01-26 15:21 | Outpatient (AMB) | payer OTHER, BC, SELFPAY ==
--- NOTE | 2024-01-26 15:37 | A.OFFVIS_ITS ---
Vital Signs 01/26/24 15:45 Height 5 ft 7 in Weight 178 lb BMI 27.9 BP 142/86 H Blood Pressure Location Lt brachial Position Sitting Respiration 16 Pulse 86 Pulse Source Pulse Oximeter Pulse Oximetry (%) 98 Oxygen Delivery Method Room Air Intake Visit Reasons: Neck pain Intake Note: Patient comes in for initial visit was referred by [facility]. She reports pain 3/10. Allergies Seasonal Allergies Allergy (Severe, Verified 11/01/23 10:05) congestion acetaminophen [From Tylox] Allergy (Intermediate, Verified 11/01/23 10:05) Nausea and Vomiting, Dizziness codeine [Codeine] Allergy (Intermediate, Verified 11/01/23 10:05) nausea/dizziness/vomiting oxycodone [From Tylox] Allergy (Intermediate, Verified 11/01/23 10:05) Nausea and Vomiting, Dizziness varenicline [From Chantix] Adverse Reaction (Intermediate, Verified 11/01/23 10:05) Irritable HPI Comments Details: Amanda is very pleasant 58 years old female who is in my office today with complain on pain in the upper portion of her neck with most of the pain in the base of her skull as well as burning sensation in her left upper shoulder as well as pins and needles and weakness of the left forearm and hand. She reports that today her pain is 3 to 4/10, she reports limited mobility of the neck. 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 She is self mobile. She can not sleep normally because of her pain, she can not function normally she can not do activities of daily living she can not take care of herself but she reports that she does it with painful sensations. Movements aggravate her pain and heat applications make her pain slightly better. Her pain is less severe in the morning and more severe in the afternoon and evening. In terms of tissue damage he reports her pain as constant sensation, sharp and lacerating, hot burning and searing, tingling and stinging, dull, hurting, heavy sensation. She is taking ibuprofen to help her pain as needed 200-1000 mg she is taking probiotics and antihistamines. She was placed by [facility] 2 weeks of large doses of steroids which helped her pain minimally however brought up multiple side effects. She received 5 weeks of physical therapy and had some alleviation of her pain or now she admits that despite physical therapy and home exercise program she came out on the plate to and her pain is not improving. She had x-ray of the cervical spine and MRI of the cervical spine results of which dictated as below. She never had any injections. Past medical history of headaches, kidney stones, diverticulosis, colon polyps, arthritis, ovarian cyst. Past surgical history lower back surgery L4-5 S1 fusion x2 tubal ligation, and gallbladder surgery. 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 [facility] Medical History Postmenopausal Nicotine dependence, cigarettes, uncomplicated Tubular adenoma of colon Headache Diverticulitis Mastocytosis Anxiety Surgical History History of endometrial ablation (~2003) History of laparoscopic cholecystectomy History of lumbar discectomy History of tubal ligation History of colonoscopy Family History Mother Heart disease Father Heart disease Cancer Liver cancer Brother Heart disease Bladder cancer Sister Breast cancer Brother No problems noted. Sister No problems noted. Sister No problems noted. Sister No problems noted. 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 Cognitive needs: No Hearing needs: No Vision needs: No Review of Systems Const All systems reviewed & are unremarkable except as noted in HPI and below Reports no additional complaints ENT Reports Normal hearing present Card Reports no additional complaints Resp Reports no additional complaints GI Reports as per HPI Reports no additional complaints Musc Reports as per HPI Neuro Reports as per HPI, Reports Normal hearing present, Denies Abnormal speech present, Denies confusion and Denies Sensory deficit (Neuro) Psych Reports no additional complaints and Denies confusion Physical Exam Vital Signs: Last Vital Signs Pulse 86 01/26/24 15:45 Resp 16 01/26/24 15:45 BP 142/86 H 01/26/24 15:45 Pulse Ox 98 01/26/24 15:45 Oxygen Delivery Method Room Air 01/26/24 15:45 BMI result Body Mass Index 27.9 Const General: no acute distress; No confusion Nutritional Appearance: average body habitus Orientation/consciousness: patient oriented x3 and No confusion Limitations: no limitations Eyes General: appearance normal, both eyes and all related structures Pupils: Equal, round and reactive pupils present EOM: EOMs intact bilaterally Neck Other: The patient exhibits limited range of motion of the cervical spine. Flexing backwards aggravate the pain more than flexing forward. Flexing had backwards aggravate pain in the base of the skull., the patient reports that pain aggravation with lateral rotation and lateral flexion of the head. Axial compression of the head aggravates the pain at the base of the skull. Neck: No full ROM Chest Chest palpation & inspection: normal inspection of the chest Resp Effort & Inspection: normal respiratory effort, able to speak in complete sentences, normal respiratory pattern, no audible wheezes and no cough Cardio Jugular venous distension: no JVD GI Inspection: Yes normal to inspection Neuro General: patient oriented x3, gait normal and No confusion Cranial nerves: Yes CN's II-XII intact bilaterally, Yes Equal, round and reactive pupils present, Yes Normal hearing present and Yes Ability to bilaterally elevate shoulders present Speech: No Abnormal speech present Gait exam (Neuro): Normal gait present Motor exam (neuro): 5/5 motor strength present throughout Sensory Exam: No Sensory deficit (Neuro) Extrem General: No pedal edema Psych Speech and movement: Normal speech and movement present Affect: normal affect Attitude: cooperative Thought process: Normal thought process present Thought content: Normal thought content present Insight: Good insight present (Psych) Judgement: Good judgement present (Psych) Results Reviewed Results Reviewed: R CERVICAL SPINE WITHOUT CONTRAST CLINICAL INFORMATION: Left-sided cervicalgia TECHNIQUE: MRI of the cervical spine was obtained using routine sequences without contrast. FINDINGS: Motion degraded examination. The craniocervical junction is intact. Straightening of the normal cervical lordosis. Trace anterolisthesis at C4-C5 and slight retrolisthesis at C5-C6. Vertebral body heights are normal without acute compression fracture. No suspicious osseous lesion. Multilevel disc desiccation with moderate C5-C6 disc height loss. There are multilevel degenerative changes with level by level detail as follows: C2-C3: Asymmetric hypertrophic right facet arthrosis. Shallow central disc protrusion. No spinal canal or neural foraminal stenosis. C3-C4: Asymmetric hypertrophic right facet arthrosis. No spinal canal or neural foraminal stenosis. C4-C5: Asymmetric right uncovertebral joint hypertrophy and hypertrophic left facet arthrosis. No spinal canal stenosis. Moderate left without right neural foraminal stenosis. No spinal canal or neural foraminal stenosis. C5-C6: Disc osteophyte complex with significant bilateral uncovertebral joint hypertrophy and bilateral facet arthrosis. Moderate spinal canal and severe bilateral neural foraminal stenosis. C6-C7: Shallow left central disc protrusion and uncovertebral spurring. Mild to moderate left neural foraminal stenosis. No spinal canal or right neural foraminal stenosis. C7-T1: Mild bilateral facet arthrosis. No spinal canal or neural foraminal stenosis. Motion artifact significantly limits assessment for cord signal abnormality however no gross abnormality is appreciated. No epidural fluid collection, mass, or hematoma. No significant abnormalities of the paraspinal musculature. The flow voids of the major cervical vessels are maintained. The visualized intracranial structures are normal. No demonstrated abnormalities in the visualized neck. MR/MR cervical spine wo con IMPRESSION: 1. Multilevel cervical spondylosis as described above, worst at C5-C6 where there is moderate spinal canal and severe bilateral neural foraminal stenosis. 2. Motion artifact significantly limits assessment for cord signal abnormality however no gross abnormality is appreciated. Assessment & Plan Assessment & Plan (1) Spondylosis of cervical spine: Code(s): M47.812 - Spondylosis without myelopathy or radiculopathy, cervical region Category: Medical (2) Degeneration, intervertebral disc, cervical: Code(s): M50.30 - Other cervical disc degeneration, unspecified cervical region Category: Medical (3) Radiculopathy, cervical: Code(s): M54.12 - Radiculopathy, cervical region Category: Medical Plan This patient cervicalgia/cervical pain is multifactorial, on the MRI there is significant foraminal stenosis C5-C6 where there is severe bilateral foraminal stenosis as well as [id number] left neural foraminal stenosis at C6-C7 on the left side. She also has widespread cervical spine arthritis and spondylosis she also has C4-C5 left neural foraminal stenosis. The radiculopathy of the cervical spine can not be addressed with neurosurgery. Schedule her for neurosurgical contact. I also would like her to go to physical therapy where range of motion exercise and cervical harness can not be employed this time instead of heat application and massages. I also will schedule her for bilateral diagnostic C4-C3-C2 medial branch block to diagnose her pain in possibly prepare her for sprint PNS stimulation for this condition. Orders: Orders PT Evaluation and Treatment Today M47.812 - Spondylosis without myelopathy or radiculopathy, cervical region, M50.30 - Other cervical disc degeneration, unspecified cervical region, M54.12 - Radiculopathy, cervical region Referrals Neurosurgery Referral M47.812 - Spondylosis without myelopathy or radiculopathy, cervical region, M50.30 - Other cervical disc degeneration, unspecified cervical region, M54.12 - Radiculopathy, cervical region Coding Level of Care Code New Pt Level 3 (45749) Diagnoses Spondylosis of cervical spine M47.812 Degeneration, intervertebral disc, cervical M50.30 Radiculopathy, cervical M54.12
[2024-01-26 15:45] VITALS: BP 142/86; PULSE 86; RESP 16; O2SAT 98; BMI 27.9
== END 2024-01-26 16:18 | disposition home or self-care (01) ==
PROVIDERS: PCP Internal Medicine; Visit Provider Anesthesiology
DX: M47.812 Spondylosis without myelopathy or radiculopathy, cervical region (principal); M50.30 Other cervical disc degeneration, unspecified cervical region; M54.12 Radiculopathy, cervical region
CPT/HCPCS: 99204

== ENCOUNTER → 2024-01-26 15:21 | Outpatient (BNVA) | payer OTHER, SELFPAY | PROVIDERS: PCP Internal Medicine; Visit Provider Anesthesiology | DX: M47.22 Other spondylosis with radiculopathy, cervical region (principal); M50.30 Other cervical disc degeneration, unspecified cervical region | CPT/HCPCS: 99202; 99212 ==

== ENCOUNTER 2024-03-07 12:07 | Outpatient (AMB) | payer BC, OTHER, SELFPAY ==
[2024-03-07 12:16] VITALS: BP 140/80; PULSE 100; O2SAT 98; BMI 28.2
--- NOTE | 2024-03-07 12:16 | A.OFFPC_ITS ---
Vital Signs 03/07/24 12:16 Height 5 ft 7 in Weight 180 lb 4 oz BMI 28.2 BP 140/80 H Blood Pressure Location Lt brachial Position Sitting Pulse 100 Pulse Source Pulse Oximeter Pulse Oximetry (%) 98 Oxygen Delivery Method Room Air Intake Visit Reasons: PE Intake Note: Pt is here today for her annual physical Last mammogram 06/10/23 Last pap 12/10/20 Last colonoscopy 05/12/21 Last flu shot 06/09/21 Allergies Seasonal Allergies Allergy (Severe, Verified 03/09/24 02:52) congestion acetaminophen [From Tylox] Allergy (Intermediate, Verified 03/09/24 02:52) Nausea and Vomiting, Dizziness codeine [Codeine] Allergy (Intermediate, Verified 03/09/24 02:52) nausea/dizziness/vomiting oxycodone [From Tylox] Allergy (Intermediate, Verified 03/09/24 02:52) Nausea and Vomiting, Dizziness varenicline [From Chantix] Adverse Reaction (Intermediate, Verified 03/09/24 02:52) Irritable Medication List - Last Reconciled 03/09/24 by Marilynn Lew MD epinephrine (EpiPen 2-Bud) 0.3 mg (0.3 mL) IM Q4H PRN ibuprofen 200 mg PO Q6H PRN levocetirizine (Xyzal) 5 mg PO BEDTIME lorazepam 0.5 mg PO BID PRN methylcellulose (laxative) (Fiber Therapy (methylcellulose)) 500 mg PO BID Saccharomyces boulardii (Daily Probiotic (S. boulardii)) 250 mg PO BID Tobacco use date assessed: 03/07/24 Dental Screening Dental Screen Date: 03/07/24 Did you have a dental visit in the last 12 months?: Yes Did you have a dental problem in the last 6 months where you did not have access to dental care?: No Was dental information given to patient?: Patient has dentist HPI PE HPI Details 53-year-old lady here today for his phys ical exam. She is up-to-date with her mammogram last done 06/10/23, had her cervical cancer screening for 03/24/2021, with normal findings, up-to-date with her colon cancer screening, with colonoscopy last done 05/07/2023, with removal of a tubular adenoma.. Currently smoke cigarettes, with no desire to quit at present time. Currently on leave from her work at [employer], due to injury in her cervical spine. She is currently being followed by [facility] Medical History (Updated 03/07/24 @ 13:24 by Marilynn Lew MD) Elevated blood pressure reading Acquired deformity of toenail History of adenomatous polyp of colon Postmenopausal Nicotine dependence, cigarettes, uncomplicated Tubular adenoma of colon Headache Diverticulitis Mastocytosis Anxiety Surgical History History of endometrial ablation (~2003) History of laparoscopic cholecystectomy History of lumbar discectomy History of tubal ligation History of colonoscopy Family History Mother Heart disease Father Heart disease Cancer Liver cancer Brother Heart disease Bladder cancer Sister Breast cancer Brother No problems noted. Sister No problems noted. Sister No problems noted. Sister No problems noted. 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 1. Little interest or pleasure in doing things: several days 2. Feeling down, depressed, or hopeless: not at all 3. Trouble falling or staying asleep, or sleeping too much: more than half the days 4. Feeling tired or having little energy: several days 5. Poor appetite or overeating: several days 6. Feeling bad about yourself - or that you are a failure or have let yourself or your family down: not at all 7. Trouble concentrating on things, such as reading the newspaper or watching television: not at all 8. Moving or speaking so slowly that other people could have noticed. Or the opposite - being so fidgety or restless that you have been moving around a lot more than usual: not at all 9. Thoughts that you would be better off or of hurting yourself in some way: not at all Total score: 5 Depression Screening Interpretation: Negative Depression Screening Done: Yes [id number] - PHQ-9 Billing: Yes Source: Developed by Drs. Nilo García, Briana Mcdonald, Dayron Ochoa and colleagues, with an educational kerri from [employer]. Thrive Questionnaire Date Thrive assessed: 03/07/24 I am a: Patient What is your living situation today?: I have a steady place to live Within the past 12 months, did the food you bought not last and you didn't have the money to get more?: Never true Within the past 12 months, did you worry whether your food would run out before you got money to buy more?: Never true Do you have trouble paying for medicines?: No Do you have trouble getting transportation to medical appointments?: No Do you have trouble paying your heating and electricity bill?: No Do you have trouble taking care of your child, family member or friend?: No Do you have trouble with day-to-day activities such as bathing, preparing meals, shopping, managing finances, etc.?: No Are you currently unemployed and looking for a job?: No Are you interested in more education?: No Please select the resources that you would like help with: None THRIVE Score: 0 AUDIT C Alcohol Use Questionnaire (AUDIT-C) 1. How often do you have a drink containing alcohol?: Monthly or less 2. How many drinks containing alcohol do you have on a typical day when you are drinking?: 1 or 2 3. How often do you have six or more drinks on one occasion?: Never Total Score: 1 Score Reviewed/Action Taken: Yes DON-7 AMB Questionnaire DON-7 Date DON - 7 assessed: 03/07/24 Feeling nervous, anxious, or on edge: 1 = Several days Not being able to stop or control worryin = Several days Worrying too much about different things: 1 = Several days Trouble relaxin = Several days Being so restless that it is hard to sit still: 1 = Several days Becoming easily annoyed or irritable: 1 = Several days Feeling afraid as if something awful might happen: 1 = Several days Total DON-7 score (0-4 normal; 5-9 mild; 10-14 moderate; 15-21 severe): 7 Source: Developed by Drs. Nilo García, Briana Mcdonald, Dayron Ochoa and colleagues, with an educational kerri from [employer]. DON-7 Assessment Billing DON-7 Assessment Tool: DON-7 Assessment 23681 Physical exam (Primary Care) Vital Signs: Last Vital Signs Pulse 100 03/07/24 12:16 BP 140/80 H 03/07/24 12:16 Pulse Ox 98 03/07/24 12:16 Oxygen Delivery Method Room Air 03/07/24 12:16 BMI result Body Mass Index 28.2 Tobacco/Smoking Status: Tobacco use Status Tobacco use date assessed 03/07/24 03/07/24 12:21 Patient Tobacco Use Status Current everyday Tobacco 03/07/24 12:19 Tobacco use type Cigarette 03/07/24 12:19 e-Cigarette/Vaping Use Never Used 03/07/24 12:19 PHQ-9: PHQ-9 Score PHQ-9: Total score 5 03/07/24 13:24 Depression Screening Interpretation: Negative Thrive Assessment: Date of Thrive Assessment Date Thrive assessed 03/07/24 03/07/24 12:39 Assessment and Plan Assessment & Plan (1) Annual visit for general adult medical examination with abnormal findings: Code(s): Z00.01 - Encounter for general adult medical examination with abnormal findings (2) Acquired deformity of toenail: Code(s): L60.8 - Other nail disorders (3) Elevated blood pressure reading: Code(s): R03.0 - Elevated blood-pressure reading, without diagnosis of hypertension (4) Erythrocytosis: Comment: (see hematology - does theraputic phlebotomy) Code(s): D75.1 - Secondary polycythemia (5) Nicotine dependence, cigarettes, uncomplicated: Comment: (current smoker, onset 17yo, 1/2-3/4ppd x 40yrs, 25pyh) Code(s): F17.210 - Nicotine dependence, cigarettes, uncomplicated (6) Anxiety: Code(s): F41.9 - Anxiety disorder, unspecified Orders: Orders Lipid Panel 06/05/24 Z00.01 - Encounter for general adult medical examination with abnormal findings, Z13.220 - Encounter for screening for lipoid disorders Vitamin D 25-OH Total 06/05/24 Z00.01 - Encounter for general adult medical examination with abnormal findings, Z13.220 - Encounter for screening for lipoid disorders Referrals Gastroenterology Referral Z86.010 - Personal history of colonic polyps Podiatry Referral L60.8 - Other nail disorders Coding Diagnoses Annual visit for general adult medical examination with abnormal findings Z00.01 Acquired deformity of toenail L60.8 Elevated blood pressure reading R03.0 Erythrocytosis D75.1 Nicotine dependence, cigarettes, uncomplicated F17.210 Anxiety F41.9 Additional Codes DON-7 Assessment Billing - DON-7 Assessment Tool: DON-7 Assessment [id number] ([id number])
--- NOTE | 2024-03-09 08:27 | A.OFFPC_ITS ---
Vital Signs 03/07/24 12:16 Height 5 ft 7 in Weight 180 lb 4 oz BMI 28.2 BP 140/80 H Blood Pressure Location Lt brachial Position Sitting Pulse 100 Pulse Source Pulse Oximeter Pulse Oximetry (%) 98 Oxygen Delivery Method Room Air Intake Visit Reasons: PE Allergies Seasonal Allergies Allergy (Severe, Verified 03/09/24 02:52) congestion acetaminophen [From Tylox] Allergy (Intermediate, Verified 03/09/24 02:52) Nausea and Vomiting, Dizziness codeine [Codeine] Allergy (Intermediate, Verified 03/09/24 02:52) nausea/dizziness/vomiting oxycodone [From Tylox] Allergy (Intermediate, Verified 03/09/24 02:52) Nausea and Vomiting, Dizziness varenicline [From Chantix] Adverse Reaction (Intermediate, Verified 03/09/24 02:52) Irritable Medication List - Last Reconciled 03/09/24 by Marilynn Lew MD epinephrine (EpiPen 2-Bud) 0.3 mg (0.3 mL) IM Q4H PRN ibuprofen 200 mg PO Q6H PRN levocetirizine (Xyzal) 5 mg PO BEDTIME lorazepam 0.5 mg PO BID PRN methylcellulose (laxative) (Fiber Therapy (methylcellulose)) 500 mg PO BID Saccharomyces boulardii (Daily Probiotic (S. boulardii)) 250 mg PO BID Tobacco use date assessed: 03/07/24 Dental Screening Dental Screen Date: 03/07/24 HPI PE HPI Details 58-year-old lady with history of IBS and sigmoid diverticulitis, polycythemia vera, and anxiety disorder, here today for physical exam. She has been having posterior neck pain, currently out of work for several weeks now , due to an injury sustained at work.. She is up-to-date with her screening mammogram, done 2022 , and had screening colonoscopy done in [address] Castellano with removal of tubular adenoma polyps. She sees Dr. Jenna Souza for her OBGYN exam, with last Pap smear done in 2020. Currently on workman's comp, followed by Dr. Golden for cervicalgia, with MRI showing significant foraminal stenosis C5-C6 with CV bilateral foramina stenosis, as well as [id number] left neural foraminal stenosis at C6-C7 on the left side and widespread cervical spine arthritis and spondylosis, and C4-C5 left neural foraminal stenosis. She has been referred by Dr. Golden for neurosurgical consultation and referred for physical therapy, and scheduled for bilateral diagnostic C4-C3-C2 medial branch block to diagnosed her pain and possibly prepare her for spinal PNS stimulation Complains of thick , friable, discolored toenails in both feet as well as be ginning to start affecting nails in by both hands as well PFSH Medical History (Updated 03/09/24 @ 14:22 by Marilynn Lew MD) Acquired deformity of nail Elevated blood pressure reading Acquired deformity of toenail History of adenomatous polyp of colon Postmenopausal Nicotine dependence, cigarettes, uncomplicated Tubular adenoma of colon Headache Diverticulitis Mastocytosis Anxiety Surgical History History of endometrial ablation (~2003) History of laparoscopic cholecystectomy History of lumbar discectomy History of tubal ligation History of colonoscopy Family History Mother Heart disease Father Heart disease Cancer Liver cancer Brother Heart disease Bladder cancer Sister Breast cancer Brother No problems noted. Sister No problems noted. Sister No problems noted. Sister No problems noted. 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 1. Little interest or pleasure in doing things: several days 2. Feeling down, depressed, or hopeless: not at all 3. Trouble falling or staying asleep, or sleeping too much: more than half the days 4. Feeling tired or having little energy: several days 5. Poor appetite or overeating: several days 6. Feeling bad about yourself - or that you are a failure or have let yourself or your family down: not at all 7. Trouble concentrating on things, such as reading the newspaper or watching television: not at all 8. Moving or speaking so slowly that other people could have noticed. Or the opposite - being so fidgety or restless that you have been moving around a lot more than usual: not at all 9. Thoughts that you would be better off or of hurting yourself in some way: not at all Total score: 5 Depression Screening Interpretation: Negative Depression Screening Done: Yes 15955 - PHQ-9 Billing: Yes Source: Developed by Drs. Nilo García, Briana Mcdonald, Dayron Ochoa and colleagues, with an educational kerri from [employer]. Thrive Questionnaire Date Thrive assessed: 03/07/24 I am a: Patient What is your living situation today?: I have a steady place to live Within the past 12 months, did the food you bought not last and you didn't have the money to get more?: Never true Within the past 12 months, did you worry whether your food would run out before you got money to buy more?: Never true Do you have trouble paying for medicines?: No Do you have trouble getting transportation to medical appointments?: No Do you have trouble paying your heating and electricity bill?: No Do you have trouble taking care of your child, family member or friend?: No Do you have trouble with day-to-day activities such as bathing, preparing meals, shopping, managing finances, etc.?: No Are you currently unemployed and looking for a job?: No Are you interested in more education?: No THRIVE Score: 0 AUDIT C Alcohol Use Questionnaire (AUDIT-C) 1. How often do you have a drink containing alcohol?: Never Total Score: 0 DON-7 AMB Questionnaire DON-7 Date DON - 7 assessed: 03/07/24 Feeling nervous, anxious, or on edge: 1 = Several days Not being able to stop or control worryin = Not at all Worrying too much about different things: 1 = Several days Trouble relaxin = Not at all Being so restless that it is hard to sit still: 0 = Not at all Becoming easily annoyed or irritable: 1 = Several days Feeling afraid as if something awful might happen: 0 = Not at all Total DON-7 score (0-4 normal; 5-9 mild; 10-14 moderate; 15-21 severe): 3 Source: Developed by Drs. Nilo García, Briana Mcdonald, Dayron Ochoa and colleagues, with an educational kerri from [employer]. DON-7 Assessment Billing DON-7 Assessment Tool: DON-7 Assessment 66462 Review of Systems Const All systems reviewed & are unremarkable except as noted in HPI and below Reports as per HPI and Denies headache(s) Eyes Reports no additional complaints ENT Reports Normal hearing present, Denies headache(s), Denies nasal congestion, Denies nasal discharge and Denies tinnitus Card Denies chest pain, Denies rapid heart rate and Denies irregular heart rhythm Resp Reports no additional complaints GI Reports as per HPI Reports no additional complaints and Denies nipple discharge Musc Reports as per HPI and Reports tingling Skin/Breast Denies breast pain, Denies breast mass, Denies lesions, Denies nipple discharge and Denies rash Neuro Reports as per HPI, Reports Normal hearing present, Denies Abnormal speech present, Denies confusion, Denies headache(s), Reports radicular pain, Reports tingling and Reports paresthesias Psych Reports no additional complaints and Denies confusion Endo Reports no additional complaints Huan/Lymph Reports no additional complaints Aller/Immun Reports no additional complaints Physical exam (Primary Care) Vital Signs: Last Vital Signs Pulse 100 03/07/24 12:16 BP 140/80 H 03/07/24 12:16 Pulse Ox 98 03/07/24 12:16 Oxygen Delivery Method Room Air 03/07/24 12:16 BMI result Body Mass Index 28.2 Tobacco/Smoking Status: Tobacco use Status Tobacco use date assessed 03/07/24 03/09/24 08:28 Patient Tobacco Use Status Current everyday Tobacco 03/09/24 08:28 Tobacco use type Cigarette 03/09/24 08:28 e-Cigarette/Vaping Use Never Used 03/09/24 08:28 Depression Screening Interpretation: Negative Thrive Assessment: Date of Thrive Assessment Date Thrive assessed 03/07/24 03/09/24 08:28 Const General: No confusion Nutritional Appearance: average body habitus Orientation/consciousness: No confusion HENMT Mouth: Normal oral and palatal mucosa present and moist mucous membranes Eyes General: appearance normal, both eyes and all related structures Neck Other: Limited range of motion of cervical spine specially on backward extension and lateral extension more towards the left side Neck: Yes no lymphadenopathy Thyroid: Thyroid normal (Nonpalpable) Chest Chest palpation & inspection: normal inspection of the chest Breast/axilla palpation: normal palpation of the breasts Resp Effort & Inspection: normal respiratory effort and able to speak in complete sentences Auscultation: clear to auscultation bilaterally Cardio Rate: regular rate Rhythm: regular rhythm Heart sounds: S1 normal heart sound present and S2 normal heart sound present GI Inspection: Yes normal to inspection Palpation (GI): Soft to palpation General: Yes deferred (Currently being seen by [facility]) Back/Spine/Pelvis Cervical Spine: pain with cervical ROM and cervical ROM abnormal Skin Other: Take friable discolored toenails in both feet as well as on fingers of both hands Neuro General: No confusion Cranial nerves: Yes Normal hearing present Speech: No Abnormal speech present Extrem General: Yes full ROM, Yes no joint enlargement, Yes no pedal edema and Yes normal gait Psych Appearance: grossly normal and well kempt Mental Status: mental status grossly normal Speech and movement: Normal speech and movement present Affect: normal affect Attitude: cooperative Assessment and Plan Assessment & Plan (1) Annual visit for general adult medical examination with abnormal findings: Code(s): Z00.01 - Encounter for general adult medical examination with abnormal findings Plan: Will check appropriate labs. Recommended dental visit every 6 months and regular eye exams, at least every 2 years. Take adequate calcium in diet and vitamin-D 3 at 2000 IU per cap once a day, in addition to weight-bearing exercises to help maintain good muscle tone and weight control. Instructed to do self-breast exam, and continue with yearly mammogram currently up-to-date. She sees Jenna Souza at [facility] for her routine Pap and pelvic exam, last done 2019.. Has had COVID vaccines but does not want to get the booster, nor does she want to get flu vaccination, up-to-date with her Tdap. Reminded to get shingles vaccine, administered at the pharmacy. GI consult obtained for her screening colonoscopy (2) Elevated blood pressure reading: Code(s): R03.0 - Elevated blood-pressure reading, without diagnosis of hypertension Plan: Reinforced importance of following low-salt diet. Check blood pressure at home and see nurse navigator in a week to check blood pressure (3) Erythrocytosis: Comment: (see hematology - does theraputic phlebotomy) Code(s): D75.1 - Secondary polycythemia Plan: Followed by hematology (4) Nicotine dependence, cigarettes, uncomplicated: Comment: (current smoker, onset 17yo, 1/2-3/4ppd x 40yrs, 25pyh) Code(s): F17.210 - Nicotine dependence, cigarettes, uncomplicated Plan: Patient strongly advised to stop smoking, as smoking damages blood vessels, degenerative of joints and spine, damage to lungs and heart., predisposes to developing certain cancers like lung, breast, bladder, colon. Recommended to try decreasing cigarette use by 1-2 cigarettes a day. Advised to monitor what triggers are for smoking so that this can be discussed on the next office visit. We can discuss different options to quit smoking when ready. (5) Anxiety: Code(s): F41.9 - Anxiety disorder, unspecified Plan: Able to control anxiety attacks through behavioral techniques (6) Degeneration, intervertebral disc, cervical: Code(s): M50.30 - Other cervical disc degeneration, unspecified cervical region Plan: Currently followed by Dr. Golden who in turn has referred her for neurosurgical consult and physical therapy. Will be undergoing bilateral diagnostic C4-C3-C2 medial branch block to diagnosed her pain and possibly prepare her for spinal PNS stimulation (7) Radiculopathy, cervical: Comment: Currently under workman's comp, sees Dr. Golden referred to [facility] neurosurgery Code(s): M54.12 - Radiculopathy, cervical region Plan: Currently followed by Dr. Golden who in turn has referred her for neurosurgical consult and physical therapy. Will be undergoing bilateral diagnostic C4-C3-C2 medial branch block to diagnosed her pain and possibly prepare her for spinal PNS stimulation (8) Acquired deformity of nail: Code(s): L60.8 - Other nail disorders Plan: Referred to podiatry for further evaluation and treatment (9) History of adenomatous polyp of colon: Code(s): Z86.010 - Personal history of colonic polyps Plan: GI consult obtained for repeat screening colonoscopy Orders: Orders Lipid Panel 06/05/24 Z00.01 - Encounter for general adult medical examination with abnormal findings, Z13.220 - Encounter for screening for lipoid disorders Vitamin D 25-OH Total 06/05/24 Z00.01 - Encounter for general adult medical examination with abnormal findings, Z13.220 - Encounter for screening for lipoid disorders Referrals Gastroenterology Referral Z86.010 - Personal history of colonic polyps Podiatry Referral L60.8 - Other nail disorders Coding Level of Care Code Est Pt Prev Care 40-64y(01016) Diagnoses Annual visit for general adult medical examination with abnormal findings Z00.01 Elevated blood pressure reading R03.0 Erythrocytosis D75.1 Nicotine dependence, cigarettes, uncomplicated F17.210 Anxiety F41.9 Degeneration, intervertebral disc, cervical M50.30 Radiculopathy, cervical M54.12 Acquired deformity of nail L60.8 History of adenomatous polyp of colon Z86.010 Additional Codes DON-7 Assessment Billing - DON-7 Assessment Tool: DON-7 Assessment 39156 ([id number])
== END 2024-03-07 14:12 | disposition home or self-care (01) ==
PROVIDERS: PCP Internal Medicine; Visit Provider Internal Medicine
DX: Z00.00 Encounter for general adult medical examination without abnormal findings (principal); R03.0 Elevated blood-pressure reading, without diagnosis of hypertension; D75.1 Secondary polycythemia; F17.210 Nicotine dependence, cigarettes, uncomplicated; F41.9 Anxiety disorder, unspecified; M50.30 Other cervical disc degeneration, unspecified cervical region; M54.12 Radiculopathy, cervical region; L60.8 Other nail disorders; Z86.010 Personal history of colon polyps
CPT/HCPCS: 99396

== ENCOUNTER 2024-03-21 07:43 | Outpatient (REF) | payer BC, SELFPAY ==
--- NOTE | ~2024-03-21 | CT_ITS ---
EXAMINATION: CT LOW-DOSE SCREENING CHEST WITHOUT CONTRAST CLINICAL INFORMATION: Nicotine dependence, cigarettes, uncomplicated, current smoker. 38 pack years. COMPARISON: 10/29/2022 TECHNIQUE: Multidetector volumetric CT imaging of the chest is performed on a Siemens SOMATOM Definition scanner without contrast using low dose technique. Additional 2D coronal and sagittal reformatted images and axial 3D maximum intensity projection (MIP) images are generated on the CT workstation. This CT examination was performed using dose optimization techniques as appropriate, variously including the following: *Automated exposure control *Adjustment of mA and/or kV according to patient size (this includes techniques or standardized protocols for targeted exams where dose is matched to indication/reason for exam; i.e. extremities or head) *Use of iterative reconstruction technique TOTAL EXAM DLP: 48 mGy-cm. FINDINGS: PULMONARY NODULES: -There are no suspicious pulmonary nodules in either lung. No new or enlarging nodules. LUNGS: -Mild centrilobular emphysema. Lungs bilaterally symmetrically expanded. No consolidations or groundglass opacities. No effusion or pneumothorax. Central airways patent. -Small airways appear normal without significant thickening, bronchiectasis, or endobronchial filling defects. MEDIASTINUM: -There is no suspicious mediastinal or hilar lymphadenopathy. -The aorta is mildly uncoiled, but normal in caliber and course with mild atheromatous calcification. There is no aneurysm. Normal three-vessel branching pattern. -Main pulmonary artery is normal in size. -Heart size is normal. There is no pericardial effusion. -Esophagus has a normal appearance. CORONARY ARTERY CALCIFICATION: Mild LAD and circumflex calcifications. THYROID GLAND: Unremarkable to the extent seen. CHEST WALL/AXILLA: No suspicious lymph nodes, and no masses. UPPER ABDOMEN: -There has been a cholecystectomy. Remainder of the upper abdominal contents image normally allowing for low-dose technique. OSSEOUS STRUCTURES: No lytic or blastic bone lesions identified. CT/CT lung screening IMPRESSION: 1. No suspicious lung nodules identified. No new or enlarging nodules. 2. Lungs demonstrate mild centrilobular emphysema but no active disease. 3. Cholecystectomy. ASSESSMENT: 1. Lung-RADS Category 1: Negative. There are no nodules or there are definitely benign nodules. 2. Lung-RADS Category S: None. RECOMMENDATION: Continued routine annual low-dose CT lung screening in 1 year is recommended. An order for CT CHEST LOW DOSE CANCER SCREENING ([id number]) can be placed. Electronically signed by: Reji Feliciano MD 04/30/2024 01:55 PM EDT
== END 2024-03-21 07:44 | disposition home or self-care (01) ==
LOC: HO.CT 07:43
PROVIDERS: PCP Internal Medicine; Visit Provider Physician Assistant Medical
DX: Z12.2 Encounter for screening for malignant neoplasm of respiratory organs (principal); F17.210 Nicotine dependence, cigarettes, uncomplicated
CPT/HCPCS: 71271

== ENCOUNTER → 2024-03-21 07:45 | Outpatient (BNV) | payer BC, SELFPAY | PROVIDERS: PCP Internal Medicine; Visit Provider Radiology Diagnostic Radiology | DX: Z12.39 Encounter for other screening for malignant neoplasm of breast (principal); F17.210 Nicotine dependence, cigarettes, uncomplicated | CPT/HCPCS: 71271 ==

== ENCOUNTER 2024-03-23 08:06 | Outpatient (AMB) | payer BC, SELFPAY ==
--- NOTE | 2024-03-23 09:58 | A.OFFPC_ITS ---
Intake Visit Reasons: new med ?adverse rx vs anxiety Allergies Seasonal Allergies Allergy (Severe, Verified 03/23/24 10:21) congestion acetaminophen [From Tylox] Allergy (Intermediate, Verified 03/23/24 10:21) Nausea and Vomiting, Dizziness codeine [Codeine] Allergy (Intermediate, Verified 03/23/24 10:21) nausea/dizziness/vomiting oxycodone [From Tylox] Allergy (Intermediate, Verified 03/23/24 10:21) Nausea and Vomiting, Dizziness varenicline [From Chantix] Adverse Reaction (Intermediate, Verified 03/23/24 10:21) Irritable Medication List - Last Reconciled 03/23/24 by Marilynn Lew MD epinephrine (EpiPen 2-Bud) 0.3 mg (0.3 mL) IM Q4H PRN ibuprofen 200 mg PO Q6H PRN levocetirizine (Xyzal) 5 mg PO BEDTIME lorazepam 0.5 mg PO BID PRN losartan 50 mg PO DAILY methylcellulose (laxative) (Fiber Therapy (methylcellulose)) 500 mg PO BID Saccharomyces boulardii (Daily Probiotic (S. boulardii)) 250 mg PO BID Tobacco use date assessed: 03/23/24 Dental Screening Dental Screen Date: 03/23/24 Did you have a dental visit in the last 12 months?: Yes Did you have a dental problem in the last 6 months where you did not have access to dental care?: Yes Was dental information given to patient?: Patient has dentist HPI new med ?adverse rx vs anxiety HPI Details 58-year-old lady here today for follow-u p. She has been started on amlodipine, but stopped using it as she started having amputations and blood pressure shot up to 198/105. Denies any accompanying chest pain or shortness of breath. . She was then switched to Losartan 50 mg taken once a day but again started having lightheadedness and increased anxiety after taking the medication. Blood pressure was checked today by nurse navigator and it came back at 130/90, with no palpitations reported. Patient however complains of still having increased anxiety attacks, and developed blurry vision. She states that she just had her eyes checked, and was told that there was nothing wrong with her eyes. [facility] Medical History (Updated 03/24/24 @ 01:26 by Marilynn Lew MD) Elevated blood pressure reading Intermittent palpitations Acquired deformity of toenail History of adenomatous polyp of colon Postmenopausal Nicotine dependence, cigarettes, uncomplicated Tubular adenoma of colon Headache Diverticulitis Mastocytosis Anxiety Surgical History History of endometrial ablation (~2003) History of laparoscopic cholecystectomy History of lumbar discectomy History of tubal ligation History of colonoscopy Family History Mother Heart disease Father Heart disease Cancer Liver cancer Brother Heart disease Bladder cancer Sister Breast cancer Brother No problems noted. Sister No problems noted. Sister No problems noted. Sister No problems noted. 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 Nilo García, Briana Mcdonald, Dayron Ochoa and colleagues, with an educational kerri from [employer]. Review of Systems Const Denies headache(s) ENT Denies headache(s), Denies nasal congestion, Denies nasal discharge and Denies t innitus Card Denies chest pain, Denies rapid heart rate and Denies irregular heart rhythm Resp Reports no additional complaints Musc Reports as per HPI and Reports tingling Skin/Breast Denies breast pain, Denies breast mass, Denies lesions and Denies rash Neuro Reports as per HPI, Denies headache(s), Reports radicular pain, Reports tingling and Reports paresthesias Psych Reports no additional complaints Endo Reports no additional complaints Huan/Lymph Reports no additional complaints Aller/Immun Reports no additional complaints Physical exam (Primary Care) Tobacco/Smoking Status: Tobacco use Status Tobacco use date assessed 03/23/24 03/23/24 10:00 Patient Tobacco Use Status Current everyday Tobacco 03/23/24 10:00 Tobacco use type Cigarette 03/23/24 10:00 e-Cigarette/Vaping Use Never Used 03/23/24 10:00 Thrive Assessment: Date of Thrive Assessment Date Thrive assessed 03/07/24 03/23/24 10:00 Telehealth Telehealth Telehealth Platform: [employer] Location of provider rendering services: practice address Location of patient: address on file Patient Identification confirmed using: Name, : Yes Telehealth method: video Patient verbally consented to treatment: Yes Patient verbally consented to billing insurance company: Yes Patient informed of any privacy concerns related to visit: Yes Minutes spent on Phone/Video with Pt.: 15 Assessment and Plan Assessment & Plan (1) Elevated blood pressure reading: Code(s): R03.0 - Elevated blood-pressure reading, without diagnosis of hypertension (2) Intermittent palpitations: Code(s): R00.2 - Palpitations (3) Anxiety: Code(s): F41.9 - Anxiety disorder, unspecified Plan Losartan discontinued, will switch to metoprolol succinate 25 mg per tablet to take 1 tablet at night with supper. Continue checking blood pressure, and keep a log of the readings.. Will schedule appointment with nurse navigator in a week to check blood pressure on new medication. A refill prescription was also given for her lorazepam 0.5 mg per tablet to take 1 tablet once a day as needed for acute anxiety attacks. Medications: New metoprolol succinate ER 25 mg PO QPM 30 tabs 1RF 1 month Refilled lorazepam 0.5 mg PO BID PRN 30 tabs 0RF anxiety attack F41.9 - Anxiety disorder, unspecified Discontinued losartan Discontinued Reason: Doctor's Order 50 mg PO DAILY 30 tabs 0RF Coding Level of Care Code Tele Est Pt Level 4 (61629) Diagnoses Elevated blood pressure reading R03.0 Intermittent palpitations R00.2 Anxiety F41.9
== END 2024-03-23 11:18 | disposition home or self-care (01) ==
PROVIDERS: PCP Internal Medicine; Visit Provider Internal Medicine
DX: R03.0 Elevated blood-pressure reading, without diagnosis of hypertension (principal); R00.2 Palpitations; F41.9 Anxiety disorder, unspecified
CPT/HCPCS: 99214

== ENCOUNTER 2024-04-03 07:04 | Outpatient (REF) | payer BC, OTHER, SELFPAY ==
--- NOTE | ~2024-04-03 | FL_ITS ---
EXAMINATION: XR FLUOROSCOPY WITH IMAGES CLINICAL INFORMATION: Spondylosis without myelopathy or radiculopathy, cervical region. COMPARISON: None available. TECHNIQUE: Fluoroscopy provided to: Dr. Golden Fluoroscopy time: 1.0 minutes DAP: 0.0477 mGycm2 Images: 9 FINDINGS: Sequential images demonstrate needle placement and contrast injection of bilateral lateral mass articulation of C1 with C2 , as well as facets bilateral C2-3, C3-4, and C4-5. FL/FL guidance in treatment room IMPRESSION: Fluoroscopic guidance. Please refer to the full operative report for details. Electronically signed by: Reji Feliciano MD 05/30/2024 05:11 PM EDT
== END 2024-04-03 07:05 | disposition home or self-care (01) ==
LOC: CF 07:04
PROVIDERS: Visit Provider Anesthesiology
DX: M47.812 Spondylosis without myelopathy or radiculopathy, cervical region (principal); M54.12 Radiculopathy, cervical region; M50.30 Other cervical disc degeneration, unspecified cervical region
CPT/HCPCS: 64490; 64491; J2795; Q9967

== ENCOUNTER 2024-04-03 08:31 | Outpatient (AMB) | payer OTHER, BC, SELFPAY ==
--- OUTSIDE RECORDS SUMMARY | 2024-04-03 08:32 | XMS_ITS | Continuity of Care Document ---
Author Organization [facility] Address [address] [place] [id number]- Care Team Providers Care Accountant Assistant Name Role Phone Louann CARRILLO, Marilynn Nava Primary Care Physician Encounter [facility] [place] Date(s): 10/08/19 - 10/18/[address] [address]- [facility] Attending Physician: Carolyn Veronica Admitting Physician: Carolyn Veronica Referring Physician: Carolyn Veronica
--- OUTSIDE RECORDS SUMMARY | 2024-04-03 08:32 | XMS_ITS | Continuity of Care Document ---
Author Organization [facility] Address [address] [place] [address]- Care Team Providers Care Neurology Technologist Name Role Phone Louann CARRILLO, Marilynn Nava Primary Care Physician Encounter [facility] Date(s): 10/02/19 - 11/01/[address] [address]- [facility] Discharge Disposition: A-D/C Home Attending Physician: Marilynn Lew MD Admitting Physician: Marilynn Lew MD Referring Physician: Marilynn Lew MD
[2024-04-03 08:41] VITALS: BP 156/100; PULSE 82; RESP 19; O2SAT 98
--- NOTE | 2024-04-03 08:41 | A.OFFVIS_ITS ---
Vital Signs 04/03/24 08:41 04/03/24 09:46 BP 156/100 H 159/91 H Blood Pressure Location Rt brachial Rt brachial Position Sitting Sitting Respiration 19 19 Pulse 82 74 Pulse Source Pulse Oximeter Pulse Oximeter Pulse Oximetry (%) 98 98 Oxygen Delivery Method Room Air Room Air Comment Pre-op Post-op Intake Visit Reasons: BILATERAL DIAGNOSTIC C2, C3, C4 MBB Allergies Seasonal Allergies Allergy (Severe, Verified 03/23/24 10:21) congestion acetaminophen [From Tylox] Allergy (Intermediate, Verified 03/23/24 10:21) Nausea and Vomiting, Dizziness codeine [Codeine] Allergy (Intermediate, Verified 03/23/24 10:21) nausea/dizziness/vomiting oxycodone [From Tylox] Allergy (Intermediate, Verified 03/23/24 10:21) Nausea and Vomiting, Dizziness varenicline [From Chantix] Adverse Reaction (Intermediate, Verified 03/23/24 10:21) Irritable PFSH Medical History (Updated 03/24/24 @ 01:26 by Marilynn Lew MD) Elevated blood pressure reading Intermittent palpitations Acquired deformity of toenail History of adenomatous polyp of colon Postmenopausal Nicotine dependence, cigarettes, uncomplicated Tubular adenoma of colon Headache Diverticulitis Mastocytosis Anxiety Surgical History History of endometrial ablation (~2003) History of laparoscopic cholecystectomy History of lumbar discectomy History of tubal ligation History of colonoscopy Family History Mother Heart disease Father Heart disease Cancer Liver cancer Brother Heart disease Bladder cancer Sister Breast cancer Brother No problems noted. Sister No problems noted. Sister No problems noted. Sister No problems noted. 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 ?Informed consent was explained to the patient. All questions were explained and answered.? The patient was taken inside the operating room where she was positioned prone on the operating table. Time-out was performed delineating correct site, side, the nature of the procedure, patient's allergy, preoperative antibiotic if needed.? All operating room staff was participating in OR time-out procedure. The back of the neck and upper back were prepped with ChloraPrep and draped with sterile towels.? Sterilely draped C-arm was brought over the operating field and sq picture of? C2-C3 C4 vertebrae were delineated on the screen.? Points of interest were delineated as lateral masses bilaterally of the vertebrae as above. The waste of each lateral mass was chosen as the target of the tip of the needles on AP view and lateral view was used as a safety view for the tips of the needles position.?? The projections of the point of interest to the skin were injected with the small amount of local anesthetic lidocaine 2% 1-1.5 cc.? After that 22 gauge 3 and 1/2 inch? spinal needles were driven to the point of interest in tunnel vision fashion. After needles gently contacted the bone at the point of interests the needle was injected with small amount of the contr ast. The injections did not demonstrate intravascular or intrathecal spread.. After that ropivacaine 0.5%-1cc. was injected into each location of the needles. Upon completion of the injections the needles were removed and sterile dressings were applied, the patient was a taken? outside of the operating room to recovery room where she recovered uneventfully. (2) Degeneration, intervertebral disc, cervical: Code(s): M50.30 - Other cervical disc degeneration, unspecified cervical region Category: Medical (3) Radiculopathy, cervical: Comment: Currently under workman's comp, sees Dr. Golden referred to [facility] neurosurgery Code(s): M54.12 - Radiculopathy, cervical region Category: Medical Plan This patient cervicalgia/cervical pain is multifactorial, on the MRI there is significant foraminal stenosis C5-C6 where there is severe bilateral foraminal stenosis as well as [id number] left neural foraminal stenosis at C6-C7 on the left side. She also has widespread cervical spine arthritis and spondylosis she also has C4-C5 left neural foraminal stenosis. The radiculopathy of the cervical spine can not be addressed with neurosurgery. Schedule her for neurosurgical contact. I also would like her to go to physical therapy where range of motion exercise and cervical harness can not be employed this time instead of heat application and massages. I also will schedule her for bilateral diagnostic C4-C3-C2 medial branch block to diagnose her pain in possibly prepare her for sprint PNS stimulation for this condition. Orders: Orders FL guidance in treatment room Today M47.812 - Spondylosis without myelopathy or radiculopathy, cervical region Coding Level of Care Code Procedure Only Diagnoses Spondylosis of cervical spine M47.812 Degeneration, intervertebral disc, cervical M50.30 Radiculopathy, cervical M54.12
[2024-04-03 09:46] VITALS: BP 159/91; PULSE 74; RESP 19; O2SAT 98
== END 2024-04-03 09:55 | disposition home or self-care (01) ==
LOC: HO.PMCPRC 08:31
PROVIDERS: PCP Internal Medicine; Visit Provider Anesthesiology
DX: M47.812 Spondylosis without myelopathy or radiculopathy, cervical region (principal); M50.30 Other cervical disc degeneration, unspecified cervical region; M54.12 Radiculopathy, cervical region
CPT/HCPCS: 64490; 64491

== ENCOUNTER 2024-04-09 13:27 | Outpatient (AMB) | payer OTHER, BC, SELFPAY ==
--- NOTE | 2024-04-09 13:40 | A.OFFVIS_ITS ---
Vital Signs 04/09/24 14:32 04/09/24 14:33 Height 5 ft 7 in Weight 165 lb 6 oz BMI 25.9 BP 190/90 H 195/98 H Blood Pressure Location Lt brachial Rt brachial Position Sitting Sitting Respiration 16 Pulse 68 Pulse Source Pulse Oximeter Pulse Oximetry (%) 98 Oxygen Delivery Method Room Air Intake Visit Reasons: BILATERAL DIAGNOSTIC C2,C3, C4 MBB Intake Note: Patient comes in for post-op. Reports pain 4/10. Allergies Seasonal Allergies Allergy (Severe, Verified 04/09/24 14:34) congestion acetaminophen [From Tylox] Allergy (Intermediate, Verified 04/09/24 14:34) Nausea and Vomiting, Dizziness codeine [Codeine] Allergy (Intermediate, Verified 04/09/24 14:34) nausea/dizziness/vomiting oxycodone [From Tylox] Allergy (Intermediate, Verified 04/09/24 14:34) Nausea and Vomiting, Dizziness varenicline [From Chantix] Adverse Reaction (Intermediate, Verified 04/09/24 14:34) Irritable HPI Comments Details: Amanda is back in my office with the results of diagnostic medial branch block C2- C3 C4. She reports absence of pain in the 1st 2 hours after the procedure. She reports continuous pain relief in the back of the head after the procedure however she reports that pain in the left arm continue to be present. I explained to the patient that the nature of the procedure was not designed to alleviate pain in her arm. To treat the pain in the arm we would need to perform epidural steroid injections, better yet she would be examined by neurosurgeon to perform a surgery. Previously she was examined by neurosurgeon or orthopedic surgeon at [place]. The surgery was offered however the patient was very reluctant to go for the procedure. To treat her occipital neuralgia/posterior headache I offered her to perform sprint PNS bilateral C3 2 weeks apart. I will start on the left and 2 weeks after that I will do it on the right. The patient agreed to go for the procedure. We also discussed possibility of treatment of her radicular pain with Dr. Esquivel, however unfortunately she is under workman's comp insurance and Dr. Esquivel office does not accept it. Prior: very pleasant 58 years old female who is in my office today with complain on pain in the upper portion of her neck with most of the pain in the base of her skull as well as burning sensation in her left upper shoulder as well as pins and needles and weakness of the left forearm and hand. She reports that today her pain is 3 to 4/10, she reports limited mobility of the neck. 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 She was placed by [facility] surgery 2 weeks of large doses of steroids which helped her pain minimally however brought up multiple side effects. She received 5 weeks of physical therapy and had some alleviation of her pain or now she admits that despite physical therapy and home exercise program she came out on the plate to and her pain is not improving. She had x-ray of the cervical spine and MRI of the cervical spine results of which dictated as below. She never had any injections. [facility] Medical History (Updated 03/24/24 @ 01:26 by Marilynn Lew MD) Elevated blood pressure reading Intermittent palpitations Acquired deformity of toenail History of adenomatous polyp of colon Postmenopausal Nicotine dependence, cigarettes, uncomplicated Tubular adenoma of colon Headache Diverticulitis Mastocytosis Anxiety Surgical History History of endometrial ablation (~2003) History of laparoscopic cholecystectomy History of lumbar discectomy History of tubal ligation History of colonoscopy Family History Mother Heart disease Father Heart disease Cancer Liver cancer Brother Heart disease Bladder cancer Sister Breast cancer Brother No problems noted. Sister No problems noted. Sister No problems noted. Sister No problems noted. 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 Cognitive needs: No Hearing needs: No Vision needs: No Review of Systems Const All systems reviewed & are unremarkable except as noted in HPI and below ENT Reports Normal hearing present Neuro Reports Normal hearing present, Denies Abnormal speech present, Denies confusion and Denies Sensory deficit (Neuro) Psych Denies confusion Physical Exam Vital Signs: Last Vital Signs Pulse 68 04/09/24 14:32 Resp 16 04/09/24 14:32 BP 195/98 H 04/09/24 14:33 Pulse Ox 98 04/09/24 14:32 Oxygen Delivery Method Room Air 04/09/24 14:32 BMI result Body Mass Index 25.9 Const General: no acute distress; No confusion Nutritional Appearance: average body habitus Orientation/consciousness: patient oriented x3 and No confusion Limitations: no limitations Eyes General: appearance normal, both eyes and all related structures Pupils: Equal, round and reactive pupils present EOM: EOMs intact bilaterally Neck Other: The patient exhibits limited range of motion of the cervical spine. Flexing backwards aggravate the pain more than flexing forward. Flexing had backwards aggravate pain in the base of the skull., the patient reports that pain aggra vation with lateral rotation and lateral flexion of the head. Axial compression of the head aggravates the pain at the base of the skull. Neck: No full ROM Chest Chest palpation & inspection: normal inspection of the chest Resp Effort & Inspection: normal respiratory effort, able to speak in complete sentences, normal respiratory pattern, no audible wheezes and no cough Cardio Jugular venous distension: no JVD GI Inspection: Yes normal to inspection Neuro General: patient oriented x3, gait normal and No confusion Cranial nerves: Yes CN's II-XII intact bilaterally, Yes Equal, round and reactive pupils present, Yes Normal hearing present and Yes Ability to bilaterally elevate shoulders present Speech: No Abnormal speech present Gait exam (Neuro): Normal gait present Motor exam (neuro): 5/5 motor strength present throughout Sensory Exam: No Sensory deficit (Neuro) Extrem General: No pedal edema Psych Speech and movement: Normal speech and movement present Affect: normal affect Attitude: cooperative Thought process: Normal thought process present Thought content: Normal thought content present Insight: Good insight present (Psych) Judgement: Good judgement present (Psych) Assessment & Plan Assessment & Plan (1) Spondylosis of cervical spine: Code(s): M47.812 - Spondylosis without myelopathy or radiculopathy, cervical region Category: Medical (2) Degeneration, intervertebral disc, cervical: Code(s): M50.30 - Other cervical disc degeneration, unspecified cervical region Category: Medical (3) Radiculopathy, cervical: Comment: Currently under [employer], sees Dr. Golden referred to [facility] neurosurgery Code(s): M54.12 - Radiculopathy, cervical region Category: Medical Plan This patient cervicalgia/cervical pain is multifactorial, on the MRI there is significant foraminal stenosis C5-C6 where there is severe bilateral foraminal stenosis as well as [id number] left neural foraminal stenosis at C6-C7 on the left side. She also has widespread cervical spine arthritis and spondylosis she also has C4-C5 left neural foraminal stenosis. The radiculopathy of the cervical spine was evaluated by [facility], surgery was offered patient reluctant to go for this procedure. I wanted to discuss procedure with Dr. Wong however patient's insurance is [employer] and office of our neurosurgeon does not accept this insurance. She completed physical therapy and it did not help her pain. bilateral diagnostic C4-C3-C2 medial branch block alleviated her posterior headache/occipital neuralgia occipital neuralgia in significant extent to recommend patient bilateral C3 PNS sprint. I will schedule the patient for this procedure. I will be able to perform therapeutic epidural steroid injection C5-C6 to treat bilateral foraminal stenosis at that area, currently she can not go to [facility] to have this procedure of decompression of C5-C6 performed. Patient Instructions: I here by testify that I spent 36 minutes in conversation with this patient as well as planning her care and organizing this note. Coding Level of Care Code Est Pt Level 4 (70231) Diagnoses Spondylosis of cervical spine M47.812 Degeneration, intervertebral disc, cervical M50.30 Radiculopathy, cervical M54.12
[2024-04-09 14:32] VITALS: BP 190/90; PULSE 68; RESP 16; O2SAT 98; BMI 25.9
[2024-04-09 14:33] VITALS: BP 195/98
== END 2024-04-09 14:33 | disposition home or self-care (01) ==
PROVIDERS: PCP Internal Medicine; Visit Provider Anesthesiology
DX: M47.812 Spondylosis without myelopathy or radiculopathy, cervical region (principal); M50.30 Other cervical disc degeneration, unspecified cervical region; M54.12 Radiculopathy, cervical region
CPT/HCPCS: 99214

== ENCOUNTER → 2024-04-09 13:27 | Outpatient (BNVA) | payer OTHER, BC, SELFPAY | PROVIDERS: PCP Internal Medicine; Visit Provider Anesthesiology | DX: M47.22 Other spondylosis with radiculopathy, cervical region (principal); M50.30 Other cervical disc degeneration, unspecified cervical region | CPT/HCPCS: 99212 ==

== ENCOUNTER 2024-04-24 07:00 | Outpatient (RCR) | payer OTHER, BC, SELFPAY | END 2024-05-28 14:43 | disposition home or self-care (01) | LOC: HO.PT 07:00 | PROVIDERS: PCP Internal Medicine; Visit Provider Anesthesiology | DX: M54.12 Radiculopathy, cervical region (principal); M50.30 Other cervical disc degeneration, unspecified cervical region | CPT/HCPCS: 97014; 97110; 97140; 97161; 97530; 97535 ==

== ENCOUNTER → 2024-05-31 12:41 | Outpatient (BNVA) | payer BC, OTHER, SELFPAY | PROVIDERS: PCP Internal Medicine ==

== ENCOUNTER 2024-06-01 06:06 | Outpatient (REF) | payer BC, SELFPAY ==
[2024-06-01 08:06] LABS: Cholesterol 254 mg/dL (<200); HDL Cholesterol 50 mg/dL (>40); LDL Cholesterol Calculated 183 mg/dL (<100); Triglycerides 106 mg/dL (<150)
[2024-06-01 08:21] LABS: Vitamin D 25-OH Total 45.4 ng/mL (>30)
== END 2024-06-01 06:07 | disposition home or self-care (01) ==
LOC: HO.LAB 06:06
PROVIDERS: Absent Provider Internal Medicine Medical Oncology; PCP Internal Medicine; Visit Provider Internal Medicine
DX: Z00.01 Encounter for general adult medical examination with abnormal findings (principal); Z13.220 Encounter for screening for lipoid disorders
CPT/HCPCS: 36415; 80061; 82306

== ENCOUNTER 2024-06-01 11:34 | Outpatient (AMB) | payer BC, SELFPAY ==
--- NOTE | 2024-06-01 11:31 | A.OFFPC_ITS ---
Intake Visit Reasons: 2 month f/u [facility] [phone] Allergies Seasonal Allergies Allergy (Severe, Verified 06/01/24 11:56) congestion acetaminophen [From Tylox] Allergy (Intermediate, Verified 06/01/24 11:56) Nausea and Vomiting, Dizziness codeine [Codeine] Allergy (Intermediate, Verified 06/01/24 11:56) nausea/dizziness/vomiting oxycodone [From Tylox] Allergy (Intermediate, Verified 06/01/24 11:56) Nausea and Vomiting, Dizziness varenicline [From Chantix] Adverse Reaction (Intermediate, Verified 06/01/24 11:56) Irritable Medication List - Last Reconciled 06/01/24 by Marilynn Lew MD epinephrine (EpiPen 2-Bud) 0.3 mg (0.3 mL) IM Q4H PRN ibuprofen 200 mg PO Q6H PRN lorazepam 0.5 mg PO BID PRN metoprolol succinate ER 50 mg PO QPM 1 month Tobacco use date assessed: 06/01/24 Dental Screening Dental Screen Date: 06/01/24 Did you have a dental visit in the last 12 months?: Yes Did you have a dental problem in the last 6 months where you did not have access to dental care?: Yes Was dental information given to patient?: Patient has dentist HPI 2 month f/u [facility] [phone] HPI Details 58-year-old lady here today for follow-u p on her hypertension. Has been checking her blood pressure at home, averaging 120/80 , not going >130 systolic. Currently on metoprolol succinate 50 mg at night. Patient however has been having intermittent episodes of lightheadedness and low heart rate averaging, usually running in the 40s and 50s when she checks it with her blood pressure monitor. [facility] Medical History (Updated 06/01/24 @ 12:10 by Marilynn Lew MD) Essential hypertension Elevated blood pressure reading Intermittent palpitations Acquired deformity of toenail History of adenomatous polyp of colon Postmenopausal Nicotine dependence, cigarettes, uncomplicated Tubular adenoma of colon Headache Diverticulitis Mastocytosis Anxiety Surgical History History of endometrial ablation (~2003) History of laparoscopic cholecystectomy History of lumbar discectomy History of tubal ligation History of colonoscopy Family History Mother Heart disease Father Heart disease Cancer Liver cancer Brother Heart disease Bladder cancer Sister Breast cancer Brother No problems noted. Sister No problems noted. Sister No problems noted. Sister No problems noted. 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 Cognitive needs: No Hearing needs: No Vision needs: No Questionnaire Thrive Questionnaire Date Thrive assessed: 05/25/24 I am a: Patient What is your living situation today?: I have a steady place to live Within the past 12 months, did the food you bought not last and you didn't have the money to get more?: Never true Within the past 12 months, did you worry whether your food would run out before you got money to buy more?: Never true Do you have trouble paying for medicines?: No Do you have trouble getting transportation to medical appointments?: No Do you have trouble paying your heating and electricity bill?: No Do you have trouble taking care of your child, family member or friend?: No THRIVE Score: 0 AUDIT C Alcohol Use Questionnaire (AUDIT-C) 1. How often do you have a drink containing alcohol?: Never Total Score: 0 DON-7 AMB Questionnaire DON-7 Date DON - 7 assessed: 03/07/24 Feeling nervous, anxious, or on edge: 0 = Not at all Not being able to stop or control worryin = Several days Worrying too much about different things: 1 = Several days Trouble relaxin = Several days Being so restless that it is hard to sit still: 1 = Several days Becoming easily annoyed or irritable: 0 = Not at all Feeling afraid as if something awful might happen: 0 = Not at all Total DON-7 score (0-4 normal; 5-9 mild; 10-14 moderate; 15-21 severe): 4 Source: Developed by Drs. Nilo García, Briana Mcdonald, Dayron Ochoa and colleagues, with an educational kerri from [employer]. Review of Systems Const Denies headache(s) ENT Reports as per HPI, Denies headache(s), Denies nasal congestion, Denies nasal discharge and Denies tinnitus Card Denies chest pain, Denies rapid heart rate and Denies irregular heart rhythm Resp Reports no additional complaints GI Reports no additional complaints Musc Reports no additional complaints Neuro Reports as per HPI and Denies headache(s) Psych Reports no additional complaints Endo Reports no additional complaints Huan/Lymph Reports no additional complaints Aller/Immun Reports no additional complaints Physical exam (Primary Care) Tobacco/Smoking Status: Tobacco use Status Tobacco use date assessed 06/01/24 06/01/24 11:33 Patient Tobacco Use Status Current everyday Tobacco 06/01/24 11:33 Tobacco use type Cigarette 06/01/24 11:33 e-Cigarette/Vaping Use Never Used 06/01/24 11:33 Thrive Assessment: Date of Thrive Assessment Date Thrive assessed 05/25/24 06/01/24 11:33 Telehealth Telehealth Telehealth Platform: [employer] Location of provider rendering services: practice address Location of patient: address on file Patient Identification confirmed using: Name, : Yes Telehealth method: video Patient verbally consented to treatment: Yes Patient verbally consented to billing insurance company: Yes Patient informed of any privacy concerns related to visit: Yes Minutes spent on Phone/Video with Pt.: 15 Assessment and Plan Assessment & Plan (1) Essential hypertension: Code(s): I10 - Essential (primary) hypertension Plan: Currently on metoprolol succinate 50 mg at night. Patient however has been having intermittent episodes of lightheadedness and low heart rate averaging, usually running in the 40s and 50s when she checks it with a blood pressure monitor. Advised to decrease metoprolol succinate to half a tablet at night, continue monitor blood pressure and pulse, continue with low-salt can schedule nurse navigator follow-up in a week for blood pressure check Coding Level of Care Code Tele Est Pt Level 3 (09695) Diagnoses Essential hypertension I10
== END 2024-06-01 14:04 | disposition home or self-care (01) ==
LOC: HO.HMCC 11:34
PROVIDERS: PCP Internal Medicine; Visit Provider Internal Medicine
DX: I10 Essential (primary) hypertension (principal)

== ENCOUNTER → 2024-06-07 08:35 | Outpatient (BNVA) | payer BC, SELFPAY | PROVIDERS: PCP Internal Medicine ==

== ENCOUNTER 2024-06-14 07:27 | Outpatient (REF) | payer BC, SELFPAY ==
--- NOTE | ~2024-06-14 | MM_ITS ---
EXAMINATION: MM SCREENING DIGITAL BREAST TOMOSYNTHESIS, BILATERAL CLINICAL INFORMATION: Screening. Asymptomatic. COMPARISON: Mammography: Comparison is made with available priors TECHNIQUE: Digital breast mammography with tomosynthesis is performed in both the craniocaudal and mediolateral oblique views along with computer-aided detection (CAD). FINDINGS: The breasts are heterogeneously dense, which may obscure small masses (ACR BI-RADS breast composition Category c). There are no significant masses, abnormal calcifications, or other abnormalities. MM/MM tomosynthesis screening BI IMPRESSION: No mammographic evidence of malignancy. ASSESSMENT: BI-RADS BI-RADS 1 - Negative RECOMMENDATION: Routine annual mammography screening. 1 year F/U This examination should not preclude the clinical evaluation of a suspicious palpable abnormality. This patient's information was entered into a reminder system with a target due date for their next mammogram. Electronically signed by: Diana Moran DO 06/26/2024 12:14 PM EDT
== END 2024-06-14 07:28 | disposition home or self-care (01) ==
LOC: HO.MAMMO 07:27
PROVIDERS: PCP Internal Medicine; Visit Provider Internal Medicine
DX: Z12.31 Encounter for screening mammogram for malignant neoplasm of breast (principal)
CPT/HCPCS: 77063; 77067

== ENCOUNTER → 2024-06-14 07:45 | Outpatient (BNV) | payer BC, SELFPAY | PROVIDERS: PCP Internal Medicine; Visit Provider Internal Medicine | DX: Z12.31 Encounter for screening mammogram for malignant neoplasm of breast (principal) | CPT/HCPCS: 77063; 77067 ==

== ENCOUNTER 2024-07-19 08:08 | Outpatient (AMB) | payer BC, SELFPAY ==
--- NOTE | 2024-07-19 08:12 | MHC.OFFVIS ---
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 She is [employer] patient and [facility] does not approve sprint PNS. I do not believe the substitute of sprint PNS with RFA will be a good idea. C2-C3 -C4 RFA is difficult to perform and maybe risky. The [facility] specialists thinks that sprint PNS is nonspecific way of treatment . He is an orthopedic surgeon and I strongly disagree with his opinion. Sprint PNS is most physiologic way to treat spondylotic and arthritic pain of the cervical spine. It restores normal tone of multifidus muscle and it restored therefore anatomical position and function of the facet joints. I explained to her that the only way I see to get her better would be to either terminate her [employer] claim go for Medicaid or get legal help to get the procedure needed to approve. Amanda states that she has an title attorney however she did not have him yet involved into discussion of her situation with [facility]. results of diagnostic medial branch block C2-C3 C4:. She reports absence of pain in the 1st 2 hours after the procedure. She reports continuous pain relief in the back of the head after the procedure however she reports that pain in the left arm continue to be present. I explained to the patient that the nature of the procedure was not designed to alleviate pain in her arm. To treat the pain in the arm we would need to perform epidural steroid injections, better yet she would be examined by neurosurgeon to perform a surgery. Previously she was examined by neurosurgeon or orthopedic surgeon at [facility]. The surgery was offered however the patient was very reluctant to go for the procedure. To treat her occipital neuralgia/posterior headache I offered her to perform sprint PNS bilateral C3 2 weeks apart. I will start on the left and 2 weeks after that I will do it on the right. The patient agreed to go for the procedure. We also discussed possibility of treatment of her radicular pain with Dr. Wong, however unfortunately she is under workman's comp insurance and Dr. Esquivel office does not accept it. Prior: very pleasant 58 years old female who is in my office today with complain on pain in the upper portion of her neck with most of the pain in the base of her skull as well as burning sensation in her left upper shoulder as well as pins and needles and weakness of the left forearm and hand. She reports that today her pain is 3 to 4/10, she reports limited mobility of the neck. 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 She was placed by [facility] 2 weeks of large doses of steroids which helped her pain minimally however brought up multiple side effects. She received 5 weeks of physical therapy and had some alleviation of her pain or now she admits that despite physical therapy and home exercise program she came out on the plate to and her pain is not improving. She had x-ray of the cervical spine and MRI of the cervical spine results of which dictated as below. She never had any injections. [facility] Medical History Symptomatic bradycardia Essential hypertension Elevated blood pressure reading Intermittent palpitations Acquired deformity of toenail History of adenomatous polyp of colon Postmenopausal Nicotine dependence, cigarettes, uncomplicated Tubular adenoma of colon Headache Diverticulitis Mastocytosis Anxiety Surgical History History of endometrial ablation (~2003) History of laparoscopic cholecystectomy History of lumbar discectomy History of tubal ligation History of colonoscopy Family History Mother Heart disease Father Heart disease Cancer Liver cancer Brother Heart disease Bladder cancer Sister Breast cancer Brother No problems noted. Sister No problems noted. Sister No problems noted. Sister No problems noted. 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 Cognitive needs: No Hearing needs: No Vision needs: No Review of Systems Const All systems reviewed & are unremarkable except as noted in HPI and below ENT Reports Normal hearing present Neuro Reports Normal hearing present, Denies Abnormal speech present, Denies confusion and Denies Sensory deficit (Neuro) Psych Denies confusion Physical Exam Const General: no acute distress; No confusion Nutritional Appearance: average body habitus Orientation/consciousness: patient oriented x3 and No confusion Limitations: no limitations Eyes General: appearance normal, both eyes and all related structures Pupils: Equal, round and reactive pupils present EOM: EOMs intact bilaterally Neck Other: The patient exhibits limited range of motion of the cervical spine. Flexing backwards aggravate the pain more than flexing forward. Flexing had backwards aggravate pain in the base of the skull., the patient reports that pain aggravation with lateral rotation and lateral flexion of the head. Axial compression of the head aggravates the pain at the base of the skull. Neck: No full ROM Chest Chest palpation & inspection: normal inspection of the chest Resp Effort & Inspection: normal respiratory effort, able to speak in complete sentences, normal respiratory pattern, no audible wheezes and no cough Cardio Jugular venous distension: no JVD GI Inspection: Yes normal to inspection Neuro General: patient oriented x3, gait normal and No confusion Cranial nerves: Yes CN's II-XII intact bilaterally, Yes Equal, round and reactive pupils present, Yes Normal hearing present and Yes Ability to bilaterally elevate shoulders present Speech: No Abnormal speech present Gait exam (Neuro): Normal gait present Motor exam (neuro): 5/5 motor strength present throughout Sensory Exam: No Sensory deficit (Neuro) Extrem General: No pedal edema Psych Speech and movement: Normal speech and movement present Affect: normal affect Attitude: cooperative Thought process: Normal thought process present Thought content: Normal thought content present Insight: Good insight present (Psych) Judgement: Good judgement present (Psych) Results Reviewed Results Reviewed: MR CERVICAL SPINE WITHOUT CONTRAST CLINICAL INFORMATION: Left-sided cervicalgia TECHNIQUE: MRI of the cervical spine was obtained using routine sequences without contrast. FINDINGS: Motion degraded examination. The craniocervical junction is intact. Straightening of the normal cervical lordosis. Trace anterolisthesis at C4-C5 and slight retrolisthesis at C5-C6. Vertebral body heights are normal without acute compression fracture. No suspicious osseous lesion. Multilevel disc desiccation with moderate C5-C6 disc height loss. There are multilevel degenerative changes with level by level detail as follows: C2-C3: Asymmetric hypertrophic right facet arthrosis. Shallow central disc protrusion. No spinal canal or neural foraminal stenosis. C3-C4: Asymmetric hypertrophic right facet arthrosis. No spinal canal or neural foraminal stenosis. C4-C5: Asymmetric right uncovertebral joint hypertrophy and hypertrophic left facet arthrosis. No spinal canal stenosis. Moderate left without right neural foraminal stenosis. No spinal canal or neural foraminal stenosis. C5-C6: Disc osteophyte complex with significant bilateral uncovertebral joint hypertrophy and bilateral facet arthrosis. Moderate spinal canal and severe bilateral neural foraminal stenosis. C6-C7: Shallow left central disc protrusion and uncovertebral spurring. Mild to moderate left neural foraminal stenosis. No spinal canal or right neural foraminal stenosis. C7-T1: Mild bilateral facet arthrosis. No spinal canal or neural foraminal stenosis. Motion artifact significantly limits assessment for cord signal abnormality however no gross abnormality is appreciated. No epidural fluid collection, mass, or hematoma. No significant abnormalities of the paraspinal musculature. The flow voids of the major cervical vessels are maintained. The visualized intracranial structures are normal. No demonstrated abnormalities in the visualized neck. MR/MR cervical spine wo con IMPRESSION: 1. Multilevel cervical spondylosis as described above, worst at C5-C6 where there is moderate spinal canal and severe bilateral neural foraminal stenosis. 2. Motion artifact significantly limits assessment for cord signal abnormality however no gross abnormality is appreciated. Assessment & Plan Assessment & Plan (1) Spondylosis of cervical spine: Code(s): M47.812 - Spondylosis without myelopathy or radiculopathy, cervical region Category: Medical (2) Degeneration, intervertebral disc, cervical: Code(s): M50.30 - Other cervical disc degeneration, unspecified cervical region Category: Medical (3) Radiculopathy, cervical: Comment: Currently under [facility], sees Dr. Golden referred to [facility] neurosurgery Code(s): M54.12 - Radiculopathy, cervical region Category: Medical Plan This patient cervicalgia/cervical pain is multifactorial, on the MRI there is significant foraminal stenosis C5-C6 where there is severe bilateral foraminal stenosis as well as [id number] left neural foraminal stenosis at C6-C7 on the left side. She also has widespread cervical spine arthritis and spondylosis she also has C4-C5 left neural foraminal stenosis. The radiculopathy of the cervical spine was evaluated by [facility], surgery was offered patient reluctant to go for this procedure. I wanted to discuss procedure with Dr. Wong however patient's insurance is [employer] [facility] [place] [facility] and office of our neurosurgeon does not accept this insurance. She completed physical therapy and it did not help her pain. bilateral diagnostic C4-C3-C2 medial branch block alleviated her posterior headache/occipital neuralgia occipital neuralgia in significant extent to recommend patient bilateral C3 PNS sprint. I wanted patient to go for this procedure however [facility] denied this procedure based on the opinion of an orthopedic surgeon (!!!) . They also thing that sprint PNS requires psychological evaluation. Sprint PNS is not permanent implant and therefore psychological evaluation is not needed. I recommended her to have her title attorney to get involved in approval of her treatment. If any assistance from my side needed to help the title attorney with professional opinion I would be glad to provide one. Patient Instructions: I here by testify that I spent 32 minutes in conversation with this patient as well as planning her care and organizing this note. Coding Level of Care Code Est Pt Level 4 (55839) Diagnoses Spondylosis of cervical spine M47.812 Degeneration, intervertebral disc, cervical M50.30 Radiculopathy, cervical M54.12
[2024-07-19 08:16] VITALS: BP 166/80; PULSE 65; O2SAT 97; BMI 27.1
[2024-07-19 08:17] VITALS: BP 156/75
== END 2024-07-19 08:39 | disposition home or self-care (01) ==
PROVIDERS: PCP Internal Medicine; Visit Provider Anesthesiology
DX: M47.812 Spondylosis without myelopathy or radiculopathy, cervical region (principal); M50.30 Other cervical disc degeneration, unspecified cervical region; M54.12 Radiculopathy, cervical region
CPT/HCPCS: 99214

== ENCOUNTER → 2024-07-19 08:08 | Outpatient (BNVA) | payer BC, SELFPAY | PROVIDERS: PCP Internal Medicine; Visit Provider Anesthesiology ==

== ENCOUNTER 2024-08-31 10:35 | Outpatient (AMB) | payer BC, SELFPAY ==
--- OUTSIDE RECORDS SUMMARY | 2024-08-31 10:37 | XMS_ITS | Patient Health Record ---
Author Organization [facility] [place] Address [address] [place] [address] Care Team Providers Care Analysis Intern Name Role Phone Louann CARRILLO, Marilynn Fry Primary Care Provider Un available Yadira Pace Unavailable [phone] Allergies Allergen (clinical drug ingredient) Drug/Non Drug Allergy documented on EMR Reaction Allergy Type Onset Date Status varenicline Chantix nightmares/mood instability Drug Allergy Active codeine Codeine Sulfate nausea and vomiting Drug Allergy Active Tylox nausea and vomiting Drug Allergy Active Reason For Referral No Information Medications Medication SIG (Take, Route, Frequency, Duration) Notes Start Date End Date Status Custom Orthotics as directed 04/13/2019 Active Ibuprofen 600 MG 1 tablet with food o r milk as needed Orally Three times a day Active Benadryl Allergy 25 MG 1 tablet as neede d Orally every 8 hrs Active EpiPen 2-Bud 0.3 MG/0.3ML as directed Injection Active Nasacort AQ Active Diclofenac Active Xyzal Active Social History Tobacco Use: Social History Observation Description Date Details (start date - stop date) Current Smoker NA - NA Tobacco Use/Smoking Question Answer Notes Are you a: current smoker When did you start smoking? 30 years ago How often do you smoke cigarettes? every day How many cigarettes a day do you smoke? 11-20 Alcohol Screen Question Answer Notes Did you have a drink contain ing alcohol in the past year? Yes How often did you have a dri nk containing alcohol in the past year? Monthly or less (1 point) Points 1 Interpretation Negative Tobacco use other than smoking: Question Answer Notes Are you an other tobacco user? No Problems Problem Type SNOMED Code ICD Code Onset Dates Problem Status W/U Status Risk Notes Problem [id number] Hallux valgus (acquired), left foot (M20.12) Active confirmed Plan Of Treatment Pending Test Test Name Order Date Tc99 3 phase Bone Scan 04/03/2019 X ray : Foot, left 3V 04/03/2019 Insurance Providers Payer Name Payer Address Payer Phone Subscriber Number Group Number Insured Name Patient Relationship to Insured Coverage Start Date Coverage End Date [facility] [employer] [address] [place] [address] [id number] Babak Diaz Spouse - patient is the spouse of the insured Medical (General) History Medical History History ICD Code Anxiety Tobacco abuse Colonic polyps Dyslipidemia Back,Hip,and Knee pain Broken bones Gall bladder problems Chicken pox chronic sinusitis Surgical History Surgery Date(Month/Year) back surgery- 2 times 1988 , 1989 jaw surgery 1988 tubal ligation and ablation cholecystectomy 2005
[2024-08-31 10:40] VITALS: BP 128/82; PULSE 70; O2SAT 99; BMI 26.9
--- NOTE | 2024-08-31 10:40 | MHC.OFFVIS ---
Vital Signs 08/31/24 10:40 Height 5 ft 7 in Weight 171 lb 8.314 oz BMI 26.9 BP 128/82 Blood Pressure Location Rt brachial Position Sitting Pulse 70 Pulse Source Pulse Oximeter Pulse Oximetry (%) 99 Oxygen Delivery Method Room Air Intake Visit Reasons: 3 yrs colonoscopy recall/ Ana pt Intake Note: ESTABLISHED PATIENT Amanda presents in office today for a scheduled colo scrn. Pt prev saw JM. Meds and Allergies reviewed? Y No recent or relevant surgeries? N Any significant concerns or new changes? Pt feels digestion has slowed. Pt has hx of cholecystectomy but isn't sure if that is relevant. Pt has hx of IBS as well. Pharmacy verified? [facility] Allergies Seasonal Allergies Allergy (Severe, Verified 08/31/24 10:40) congestion acetaminophen [From Tylox] Allergy (Intermediate, Verified 08/31/24 10:40) Nausea and Vomiting, Dizziness codeine [Codeine] Allergy (Intermediate, Verified 08/31/24 10:40) nausea/dizziness/vomiting oxycodone [From Tylox] Allergy (Intermediate, Verified 08/31/24 10:40) Nausea and Vomiting, Dizziness varenicline [From Chantix] Adverse Reaction (Intermediate, Verified 08/31/24 10:40) Irritable HPI HPI 3 yrs colonoscopy recall/ Ana pt: Details: LAST COLONOSCOPY WITH DR. DANIELS IN 2020 Findings: Terminal Ileum: Not evaluated Cecum:? Normal Ascending Colon:? Normal Transverse Colon:? A 10-12 mm sessile polyp removed with the cold snare. A 12-15 mm sessile polyp removed with a hot snare. Descending Colon:? Moderate diverticulosis Sigmoid Colon:? Severe diverticulosis with luminal narrowing Rectum:? Normal Ano-rectum:? Normal Colon preparation:? Good after some irrigation Impression and Post Procedure Diagnosis: Colonoscopy Findings: Two medium sized polyps removed. Random biopsies were obtained from the right and left colon to rule out IBD Moderate to severe diverticulosis seen in the left colon Moderate hemorrhoids on retroflexed exam. Plan: Await pathology results Patient has an appointment on 05/12/21 in the GI Clinic with JACY Gunter Repeat Colonoscopy interval based on path results - in 3 years if polyps are adenomatous and 5 years if polyps are hyperplastic (due to a hx of adenomatous colon polyps). PATHOLOGY RESULTS Diagnosis A. Colon, right, biopsy: Colonic mucosa within normal limits; negative for active, chronic or microscopic colitis. B. Colon, transverse, polypectomy x2: Tubular adenoma (1); cauterized colonic mucosa with features suggestive of sessile serrated polyp; negative for high-grade dysplasia. C. 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 Overall she has symptoms intermittently she cannot associate with anything specific aside from stress. On She is trying to lose some weight She has no vomiting, abdominal pain, fever or chills TODAY'S VISIT Patient is here today for pre colonoscopy screening. Last colonoscopy in 2020 that shows tubular adenomas and patient was recommended to be scheduled in 3 years. Patient reports that this past summer she had work-related injury and her blood pressure started to go up. Currently she is on blood pressure medications to take care of that. Patient reports that she is smoking less cigarettes a day and trying to quit. Reports that she is moving her bowels, however sometimes she might feel constipated. Patient reports occasional abdominal bloating. Denies melena, hematochezia, unintentional weight loss or ribbon like stools. Patient denies any dyspepsia, dysphagia or odynophagia. Patient denies any history of difficulty with sedation or anesthesia in the past. Negative for history of sleep apnea. Denies any cardiac, renal, pulmonary or hepatic disease. Denies history of infectious diseases in the past or present. Patient is not on any anticoagulation medication. [facility] Medical History Symptomatic bradycardia Essential hypertension Elevated blood pressure reading Intermittent palpitations Acquired deformity of toenail History of adenomatous polyp of colon Postmenopausal Nicotine dependence, cigarettes, uncomplicated Tubular adenoma of colon Headache Diverticulitis Mastocytosis Anxiety Surgical History History of endometrial ablation (~2003) History of laparoscopic cholecystectomy History of lumbar discectomy History of tubal ligation History of colonoscopy Family History Mother Heart disease Father Heart disease Cancer Liver cancer Brother Heart disease Bladder cancer Sister Breast cancer Brother No problems noted. Sister No problems noted. Sister No problems noted. Sister No problems noted. 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 Cognitive needs: No Hearing needs: No Vision needs: No Review of Systems Const Denies weight gain and Denies weight loss ENT Reports no additional complaints, Denies dysphagia and Denies odynophagia Card Reports no additional complaints Resp Reports no additional complaints GI Reports abdominal pain, Denies belching, Denies melena, Reports bloating, Denies change in bowel habits, Reports constipation, Denies dysphagia, Denies excessive flatus, Denies dyspepsia, Reports heartburn, Denies diarrhea, Reports loose stools, Denies nausea, Denies odynophagia and Denies vomiting Reports no additional complaints Musc Reports no additional complaints Neuro Reports no additional complaints Psych Reports no additional complaints Endo Reports no additional complaints Physical Exam Vital Signs: Last Vital Signs Pulse 70 08/31/24 10:40 BP 128/82 08/31/24 10:40 Pulse Ox 99 08/31/24 10:40 Oxygen Delivery Method Room Air 08/31/24 10:40 BMI result Body Mass Index 26.9 Const General: healthy appearing and no acute distress Nutritional Appearance: obese Orientation/consciousness: patient oriented x3 Resp Effort & Inspection: normal respiratory effort, able to speak in complete sentences, no tracheal deviation and symmetric chest movement Auscultation: clear to auscultation bilaterally Cardio Rate: regular rate GI Inspection: Yes normal to inspection, No distended and Yes obesity Palpation (GI): Soft to palpation, not firm, nontender and No hepatosplenomegaly present Auscultation: normal bowel sounds General: Yes no CVA tenderness Back/Spine/Pelvis Back: no CVA tenderness Skin General skin exam: elasticity normal, turgor normal and dry skin Neuro General: patient oriented x3 Psych Appearance: grossly normal Mental Status: mental status grossly normal Assessment & Plan Assessment & Plan (1) History of adenomatous polyp of colon: Code(s): Z86.010 - Personal history of colon polyps Category: Medical (2) Screen for colon cancer: Code(s): Z12.11 - Encounter for screening for malignant neoplasm of colon Plan Patient denies any cardiac or respiratory symptoms.? Patient reports occasional postprandial abdominal bloating. Occasional constipation and sometimes loose stools. Patient denies any dyspepsia, dysphagia or odynophagia Denies any issues with anesthesia in the past.? Denies any history of sleep apnea.? No history infectious diseases in the past or present.? Not on any anticoagulation therapy.? No family or personal history of colon cancer. History of tubular adenoma?on colonoscopy in 2020. Patient denies melena, hematochezia, unintentional weight loss or ribbon like stools.? Discussed at length the pre-procedure,? prep, diet & medications as well as what to expect prior, during and after the procedure.?? Stressed the importance of good bowel prep.? Recommended the use of Vaseline or Calmoseptine OTC & baby wipes with bowel movements to promote comfort.? ?Patient verbalizes understanding and agrees to plan of care.? She was given the opportunity to ask questions and all questions answered.? We will see her after the procedure.? Medications: New polyethylene glycol 3350 (Miralax) As directed by gastroenterology department at [facility] 238 grams PO ONCE 238 grams 0RF Z12.11 - Encounter for screening for malignant neoplasm of colon bisacodyl (Dulcolax (bisacodyl)) Start taking 2 tablet every night 7 days before the procedure and 1 day before procedure take 4 tablets at noon time followed by MiraLax prep 10 mg (2 x 5 mg) PO BEDTIME 16 tabs 0RF Z12.11 - Encounter for screening for malignant neoplasm of colon Coding Level of Care Code New Pt Level 3 (21028) Diagnoses History of adenomatous polyp of colon Z86.010 Screen for colon cancer Z12.11 Time Spent (min) 40 Comment 30 minutes spent with patient and additional 10 minutes spent reviewing her records
== END 2024-08-31 14:13 | disposition home or self-care (01) ==
PROVIDERS: PCP Internal Medicine; Visit Provider Nurse Practitioner Family
DX: Z01.818 Encounter for other preprocedural examination (principal); Z12.11 Encounter for screening for malignant neoplasm of colon; Z86.0100 Personal history of colon polyps, unspecified
CPT/HCPCS: S0285

== ENCOUNTER 2024-10-01 10:08 | Outpatient (AMB) | payer OTHER, BC, SELFPAY ==
--- NOTE | 2024-10-01 10:11 | A.OFFVIS_ITS ---
Vital Signs 10/01/24 10:12 Height 5 ft 7 in Weight 172 lb BMI 26.9 BP 150/98 H Blood Pressure Location Lt brachial Position Sitting Respiration 16 Pulse 89 Pulse Source Pulse Oximeter Pulse Oximetry (%) 99 Oxygen Delivery Method Room Air Intake Visit Reasons: FU neck pain [employer] Required: No Allergies Seasonal Allergies Allergy (Severe, Verified 10/01/24 10:15) congestion codeine [Codeine] Allergy (Intermediate, Verified 10/01/24 10:15) nausea/dizziness/vomiting oxycodone [From Tylox] Allergy (Intermediate, Verified 10/01/24 10:15) Nausea and Vomiting, Dizziness varenicline [From Chantix] Adverse Reaction (Intermediate, Verified 10/01/24 10:15) Irritable Medication List - Last Reconciled 10/01/24 by Aggie Zapata LPN epinephrine (EpiPen 2-Bdu) 0.3 mg (0.3 mL) IM Q4H PRN ibuprofen 200 mg PO Q6H PRN lorazepam 0.5 mg PO BID PRN metoprolol succinate ER 25 mg (1/2 x 50 mg) PO QPM HPI Comments Details: Amanda is under observation in my office for a work related injury to her cervical spine. 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 She is suffering from aggravation of pre-existing degenerative disc disease of the cervical spine as well as spondyloarthropathy of the cervical spine which resulted in spinal stenosis. The trauma which occurred on 09/21/2023 exacerbated her condition. Her care in my office is related to her work injury. She received diagnostic medial branch block C2, C3, C4 bilateral which resulted in excellent pain relief. The results of the diagnostic injection is an indication for sprint peripheral nerve stimulation. I recommended her to have this procedure done however unfortunately the patient's [employer] insurance claims specialist denied the procedure She is [employer] patient and [employer] does not approve sprint PNS. She is unnecessarily suffering from longstanding chronic upper cervical back pain with radiation to the back of her head. This pain is debilitating and prevents her from engaging in her work duties. Without sprint PNS which would be recommended by any prudent pain management physician with the results of the diagnostic injection this patient had, the patient is unlikely to return to her job activities any time soon. The individual pension consultant of [facility] [facility] introduced the idea of performing RFA instead of sprint PNS. I do not believe the substitute of sprint PNS with RFA will be a good idea. C2-C3 -C4 RFA is difficult to perform and maybe risky. The [facility] specialists thinks that sprint PNS is nonspecific way of treatment . He is an orthopedic surgeon and I strongly disagree with his opinion. Sprint PNS is most physiologic way to treat spondylotic and arthritic pain of the cervical spine. It restores normal tone of multifidus muscle and it restored therefore anatomical position and function of the facet joints. results of diagnostic medial branch block C2-C3 C4:. She reports absence of pain in the 1st 2 hours after the procedure. She reports continuous pain relief in the back of the head after the procedure however she reports that pain in the left arm continue to be present. I explained to the patient that the nature of the procedure was not designed to alleviate pain in her arm. To treat the pain in the arm we would need to perform epidural steroid injections, better yet she would be examined by neurosurgeon to perform a surgery. Previously she was examined by neurosurgeon or orthopedic surgeon at [facility]. The surgery was offered however the patient was very reluctant to go for the procedure. To treat her occipital neuralgia/posterior headache I offered her to perform sprint PNS bilateral C3 2 weeks apart. I will start on the left and 2 weeks after that I will do it on the right. The patient agreed to go for the procedure. We also discussed possibility of treatment of her radicular pain with Dr. Wong, however unfortunately she is under [employer] insurance and Dr. Esquivel office does not accept it. Prior: very pleasant 58 years old female who is in my office today with complain on pain in the upper portion of her neck with most of the pain in the base of her skull as well as burning sensation in her left upper shoulder as well as pins and needles and weakness of the left forearm and hand. She reports that today her pain is 3 to 4/10, she reports limited mobility of the neck. 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 She was placed by [facility] 2 weeks of large doses of steroids which helped her pain minimally however brought up multiple side effects. She received 5 weeks of physical therapy and had some alleviation of her pain or now she admits that despite physical therapy and home exercise program she came out on the plate to and her pain is not improving. She had x-ray of the cervical spine and MRI of the cervical spine results of which dictated as below. She never had any injections. [facility] Medical History Symptomatic bradycardia Essential hypertension Elevated blood pressure reading Intermittent palpitations Acquired deformity of toenail History of adenomatous polyp of colon Postmenopausal Nicotine dependence, cigarettes, uncomplicated Tubular adenoma of colon Headache Diverticulitis Mastocytosis Anxiety Surgical History History of endometrial ablation (~2003) History of laparoscopic cholecystectomy History of lumbar discectomy History of tubal ligation History of colonoscopy Family History Mother Heart disease Father Heart disease Cancer Liver cancer Brother Heart disease Bladder cancer Sister Breast cancer Brother No problems noted. Sister No problems noted. Sister No problems noted. Sister No problems noted. 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 Cognitive needs: No Hearing needs: No Vision needs: No Review of Systems Const All systems reviewed & are unremarkable except as noted in HPI and below ENT Reports Normal hearing present Neuro Reports Normal hearing present, Denies Abnormal speech present, Denies confusion and Denies Sensory deficit (Neuro) Psych Denies confusion Physical Exam Const General: no acute distress; No confusion Nutritional Appearance: average body habitus Orientation/consciousness: patient oriented x3 and No confusion Limitations: no limitations Eyes General: appearance normal, both eyes and all related structures Pupils: Equal, round and reactive pupils present EOM: EOMs intact bilaterally Neck Other: The patient exhibits limited range of motion of the cervical spine. Flexing backwards aggravate the pain more than flexing forward. Flexing had backwards aggravate pain in the base of the skull., the patient reports that pain aggravation with lateral rotation and lateral flexion of the head. Axial compression of the head aggravates the pain at the base of the skull. Neck: No full ROM Chest Chest palpation & inspection: normal inspection of the chest Resp Effort & Inspection: normal respiratory effort, able to speak in complete sentences, normal respiratory pattern, no audible wheezes and no cough Cardio Jugular venous distension: no JVD GI Inspection: Yes normal to inspection Neuro General: patient oriented x3, gait normal and No confusion Cranial nerves: Yes CN's II-XII intact bilaterally, Yes Equal, round and reactive pupils present, Yes Normal hearing present and Yes Ability to bilaterally elevate shoulders present Speech: No Abnormal speech present Gait exam (Neuro): Normal gait present Motor exam (neuro): 5/5 motor strength present throughout Sensory Exam: No Sensory deficit (Neuro) Extrem General: No pedal edema Psych Speech and movement: Normal speech and movement present Affect: normal affect Attitude: cooperative Thought process: Normal thought process present Thought content: Normal thought content present Insight: Good insight present (Psych) Judgement: Good judgement present (Psych) Results Reviewed Results Reviewed: MR CERVICAL SPINE WITHOUT CONTRAST CLINICAL INFORMATION: Left-sided cervicalgia TECHNIQUE: MRI of the cervical spine was obtained using routine sequences without contrast. FINDINGS: Motion degraded examination. The craniocervical junction is intact. Straightening of the normal cervical lordosis. Trace anterolisthesis at C4-C5 and slight retrolisthesis at C5-C6. Vertebral body heights are normal without acute compression fracture. No suspicious osseous lesion. Multilevel disc desiccation with moderate C5-C6 disc height loss. There are multilevel degenerative changes with level by level detail as follows: C2-C3: Asymmetric hypertrophic right facet arthrosis. Shallow central disc protrusion. No spinal canal or neural foraminal stenosis. C3-C4: Asymmetric hypertrophic right facet arthrosis. No spinal canal or neural foraminal stenosis. C4-C5: Asymmetric right uncovertebral joint hypertrophy and hypertrophic left facet arthrosis. No spinal canal stenosis. Moderate left without right neural foraminal stenosis. No spinal canal or neural foraminal stenosis. C5-C6: Disc osteophyte complex with significant bilateral uncovertebral joint hypertrophy and bilateral facet arthrosis. Moderate spinal canal and severe bilateral neural foraminal stenosis. C6-C7: Shallow left central disc protrusion and uncovertebral spurring. Mild to moderate left neural foraminal stenosis. No spinal canal or right neural foraminal stenosis. C7-T1: Mild bilateral facet arthrosis. No spinal canal or neural foraminal stenosis. Motion artifact significantly limits assessment for cord signal abnormality however no gross abnormality is appreciated. No epidural fluid collection, mass, or hematoma. No significant abnormalities of the paraspinal musculature. The flow voids of the major cervical vessels are maintained. The visualized intracranial structures are normal. No demonstrated abnormalities in the visualized neck. MR/MR cervical spine wo con IMPRESSION: 1. Multilevel cervical spondylosis as described above, worst at C5-C6 where there is moderate spinal canal and severe bilateral neural foraminal stenosis. 2. Motion artifact significantly limits assessment for cord signal abnormality however no gross abnormality is appreciated. Assessment & Plan Assessment & Plan (1) Spondylosis of cervical spine: Code(s): M47.812 - Spondylosis without myelopathy or radiculopathy, cervical region Category: Medical (2) Degeneration, intervertebral disc, cervical: Code(s): M50.30 - Other cervical disc degeneration, unspecified cervical region Category: Medical (3) Radiculopathy, cervical: Comment: Currently under [employer], sees Dr. Golden referred to [facility] neurosurgery Code(s): M54.12 - Radiculopathy, cervical region Category: Medical Plan This patient cervicalgia/cervical pain is multifactorial, on the MRI there is significant foraminal stenosis C5-C6 where there is severe bilateral foraminal stenosis as well as [id number] left neural foraminal stenosis at C6-C7 on the left side. She also has widespread cervical spine arthritis and spondylosis she also has C4-C5 left neural foraminal stenosis. The radiculopathy of the cervical spine was evaluated by [facility], surgery was offered patient reluctant to go for this procedure. I wanted to discuss procedure with Dr. Wong however patient's insurance is [employer] and office of our neurosurgeon does not accept this insurance. She completed physical therapy and it did not help her pain. bilateral diagnostic C4-C3-C2 medial branch block alleviated her posterior headache/occipital neuralgia occipital neuralgia in significant extent to recommend patient bilateral C3 PNS sprint. I wanted patient to go for this procedure however [employer] comp denied this procedure based on the opinion of an orthopedic surgeon (!!!) . The [employer] insurance representatives also think that sprint PNS requires psychological evaluation. Sprint PNS is not permanent implant and therefore psychological evaluation is not needed. To evaluate the extent of patient's disability I will send her to functional capacity evaluation at the office of physical therapy of her liking. Patient Instructions: I here by testify that I spent 32 minutes in conversation with this patient as well as planning her care evaluating prior diagnostic records and organizing this note. Coding Level of Care Code Est Pt Level 4 (35088) Diagnoses Spondylosis of cervical spine M47.812 Degeneration, intervertebral disc, cervical M50.30 Radiculopathy, cervical M54.12
[2024-10-01 10:12] VITALS: BP 150/98; PULSE 89; RESP 16; O2SAT 99; BMI 26.9
--- OUTSIDE RECORDS SUMMARY | 2024-10-01 14:42 | XMS_ITS | Patient Health Record ---
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 Role Phone Louann CARRILLO, Marilynn Fry Primary Care Provider Un available Yadira Pace Unavailable [phone] Allergies Allergen (clinical drug ingredient) Drug/Non Drug [...] Problem Status W/U Status Risk Notes Problem [id number] Hallux valgus (acquired), left foot (M20.12) Active confirmed Plan Of Treatment Pending Test Test Name Order Date Tc99 3 phase Bone Scan 04/03/2019 X ray : Foot, left 3V 04/03/2019 Insurance Providers Payer Name Payer Address Payer Phone Subscriber Number Group Number Insured Name Patient Relationship to Insured Coverage Start Date Coverage End Date [facility] All Others [address] [place] [address] [phone] [id number] Babak Diaz Spouse - patient is [...]
== END 2024-10-01 10:28 | disposition home or self-care (01) ==
PROVIDERS: PCP Internal Medicine; Visit Provider Anesthesiology
DX: M47.812 Spondylosis without myelopathy or radiculopathy, cervical region (principal); M50.30 Other cervical disc degeneration, unspecified cervical region; M54.12 Radiculopathy, cervical region
CPT/HCPCS: 99214

== ENCOUNTER → 2024-10-01 10:08 | Outpatient (BNVA) | payer OTHER, BC, SELFPAY | PROVIDERS: PCP Internal Medicine; Visit Provider Anesthesiology | DX: I10 Essential (primary) hypertension (principal); M47.22 Other spondylosis with radiculopathy, cervical region; M50.30 Other cervical disc degeneration, unspecified cervical region; F41.9 Anxiety disorder, unspecified; Z79.899 Other long term (current) drug therapy | CPT/HCPCS: 96127; 99212 ==

== ENCOUNTER 2024-10-01 10:57 | Outpatient (AMB) | payer OTHER, BC, SELFPAY ==
[2024-10-01 11:13] VITALS: BP 156/94; PULSE 85; TEMP 36.7; O2SAT 95; BMI 26.9
--- NOTE | 2024-10-01 11:13 | A.OFFPC_ITS ---
Vital Signs 10/01/24 11:13 Height 5 ft 7 in Weight 172 lb BMI 26.9 BP 156/94 H Blood Pressure Location Lt brachial Position Sitting Pulse 85 Pulse Source Pulse Oximeter Temp 98.1 F Temp Source Oral Pulse Oximetry (%) 95 Oxygen Delivery Method Room Air Intake Visit Reasons: Work injury Intake Note: Pt is here today WC 09/22/23 neck injury: Current seeing pain mgmt and ins WC denied sprint procedure: Pain mgmt suggest patient get a full assessment from PCP. Patient had a appt with pain management this morning Allergies Seasonal Allergies Allergy (Severe, Verified 10/07/24 18:39) congestion codeine [Codeine] Allergy (Intermediate, Verified 10/07/24 18:39) nausea/dizziness/vomiting oxycodone [From Tylox] Allergy (Intermediate, Verified 10/07/24 18:39) Nausea and Vomiting, Dizziness varenicline [From Chantix] Adverse Reaction (Intermediate, Verified 10/07/24 18:39) Irritable Medication List - Last Reconciled 10/07/24 by Marilynn Lew MD epinephrine (EpiPen 2-Bud) 0.3 mg (0.3 mL) IM Q4H PRN ibuprofen 200 mg PO Q6H PRN lorazepam 0.5 mg PO BID PRN metoprolol succinate ER 25 mg (1/2 x 50 mg) PO QPM Tobacco use date assessed: 10/01/24 Dental Screening Dental Screen Date: 10/01/24 Did you have a dental visit in the last 12 months?: Yes Did you have a dental problem in the last 6 months where you did not have access to dental care?: Yes Was dental information given to patient?: Patient has dentist HPI Work injury HPI Details - The patient is a 59-year-old female w ith history of cervical degenerative disc disease with radiculopathy , currently being seen by Dr. 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 Trauma occurred on 09/21/2023, which has exacerbated her condition. Patient has not been able to work since then She is suffering from aggravation of pre-existing degenerative disc disease of the cervical spine as well as spondyloarthropathy of the cervical spine which resulted in spinal stenosis. She has been experiencing chronic neck pain with radiation down arm, accompanied by headache, with limited range of motion in neck and upper extremities due to pain. -presently being seen by pain management with previous treatment including epidural steroid injections, which were partially successful for headaches but not for her arm symptoms. -she received diagnostic medial branch b lock C2, C3, C4 bilateral from Dr. Golden which resulted in excellent pain relief. Dr. Golden has recommended sprint peripheral nerve stimulation based on her good response , unfortunately patient's [employer] insurance instructor denied the procedure - She reports ongoing stress, anxiety, a nd elevated blood pressure due to longstanding chronic upper cervical back pain with radiation to back of her head and arms is debilitating and prevents her from engaging in in any work at present time. 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 vice president [employer] (ex ) of [employer] introduced the idea of performing RFA instead of sprint PNS, which Dr. Golden does not believe is a good idea, as C2-C3 -C4 RFA is difficult to perform and maybe risky. Dr. Golden would like her to be evaluated by Neurosurgery but neurosurgery does not accept any workman's compensation case. He i he would like her to be evaluated regarding the extent of her disability, and recommendto be sent to physical therapy to get a functional capacity evaluation . [facility] Medical History (Updated 10/07/24 @ 19:02 by Marilynn Lew MD) Essential hypertension Elevated blood pressure reading Intermittent palpitations Acquired deformity of toenail History of adenomatous polyp of colon Postmenopausal Nicotine dependence, cigarettes, uncomplicated Tubular adenoma of colon Headache Diverticulitis Mastocytosis Anxiety Surgical History History of endometrial ablation (~2003) History of laparoscopic cholecystectomy History of lumbar discectomy History of tubal ligation History of colonoscopy Family History Mother Heart disease Father Heart disease Cancer Liver cancer Brother Heart disease Bladder cancer Sister Breast cancer Brother No problems noted. Sister No problems noted. Sister No problems noted. Sister No problems noted. 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 Cognitive needs: No Hearing needs: No Vision needs: No Questionnaire Thrive Questionnaire Date Thrive assessed: 05/25/24 I am a: Patient What is your living situation today?: I choose not to answer this question Within the past 12 months, did the food you bought not last and you didn't have the money to get more?: Never true Within the past 12 months, did you worry whether your food would run out before you got money to buy more?: Never true Do you have trouble paying for medicines?: No Do you have trouble getting transportation to medical appointments?: No Do you have trouble paying your heating and electricity bill?: No Do you have trouble taking care of your child, family member or friend?: No Do you have trouble with day-to-day activities such as bathing, preparing meals, shopping, managing finances, etc.?: I choose not to answer this question Are you currently unemployed and looking for a job?: I choose not to answer this question Are you interested in more education?: I choose not to answer this question Please select the resources that you would like help with: None Currently or been in a relationship where the following occur: No concerns reported THRIVE Score: 0 AUDIT C Alcohol Use Questionnaire (AUDIT-C) 1. How often do you have a drink containing alcohol?: Never Total Score: 0 DON-7 AMB Questionnaire DON-7 Date DON - 7 assessed: 10/01/24 Feeling nervous, anxious, or on edge: 1 = Several days Not being able to stop or control worryin = Several days Worrying too much about different things: 1 = Several days Trouble relaxin = Several days Being so restless that it is hard to sit still: 1 = Several days Becoming easily annoyed or irritable: 1 = Several days Feeling afraid as if something awful might happen: 1 = Several days Total DON-7 score (0-4 normal; 5-9 mild; 10-14 moderate; 15-21 severe): 7 Source: Developed by Drs. Nilo García, Briana Mcdonald, Dayron Ochoa and colleagues, with an educational kerri from [employer]. DON-7 Assessment Billing DON-7 Assessment Tool: DON-7 Assessment 52648 Review of Systems Const All systems reviewed & are unremarkable except as noted in HPI and below ENT Reports Normal hearing present Card Reports no additional complaints Resp Reports no additional complaints GI Reports no additional complaints Musc Reports as per HPI Neuro Reports Normal hearing present, Denies Abnormal speech present and Denies Sensory deficit (Neuro) Psych Reports as per HPI Physical exam (Primary Care) Vital Signs: Last Vital Signs Temp 98.1 F 10/01/24 11:13 Pulse 85 10/01/24 11:13 BP 156/94 H 10/01/24 11:13 Pulse Ox 95 10/01/24 11:13 Oxygen Delivery Method Room Air 10/01/24 11:13 BMI result Body Mass Index 26.9 Tobacco/Smoking Status: Tobacco use Status Tobacco use date assessed 10/01/24 10/01/24 11:19 Patient Tobacco Use Status Current everyday Tobacco 10/01/24 11:19 Tobacco use type Cigarette 10/01/24 11:19 e-Cigarette/Vaping Use Never Used 10/01/24 11:19 Thrive Assessment: Date of Thrive Assessment Date Thrive assessed 05/25/24 10/01/24 11:19 Currently or been in a relationship where the following occur: No concerns reported Const Nutritional Appearance: average body habitus Orientation/consciousness: patient oriented x3 HENMT Mouth: Normal oral and palatal mucosa present and moist mucous membranes Eyes General: appearance normal, both eyes and all related structures Neck Other: Limited range of motion of cervical spine specially on backward extension and lateral extension more towards the left side Neck: Yes no lymphadenopathy and Yes no meningeal signs Thyroid: Thyroid normal (Nonpalpable) Chest Chest palpation & inspection: normal inspection of the chest Breast/axilla palpation: normal palpation of the breasts Resp Effort & Inspection: normal respiratory effort and able to speak in complete sentences Auscultation: clear to auscultation bilaterally Cardio Rate: regular rate Rhythm: regular rhythm Heart sounds: S1 normal heart sound present and S2 normal heart sound present GI Inspection: Yes normal to inspection Palpation (GI): Soft to palpation Back/Spine/Pelvis Cervical Spine: cervical muscular tenderness, pain with cervical ROM and cervical ROM abnormal Neuro General: patient oriented x3, gait normal, Normal light touch and pain sensation, no meningeal signs and no focal motor deficits Cranial nerves: Yes Normal hearing present Cognition (Neuro): normal cognition Speech: No Abnormal speech present Sensory Exam: No Sensory deficit (Neuro) Extrem Other: Decreased range of motion in both shoulder joints due to pain and stiffness General: Yes no joint enlargement, Yes no pedal edema and Yes normal gait Coding Level of Care Code Est Pt Level 4 (92944) Complex EM visit Add On G2211 Diagnoses Essential hypertension I10 Spondylosis of cervical spine M47.812 Degeneration, intervertebral disc, cervical M50.30 Radiculopathy, cervical M54.12 Anxiety F41.9 Additional Codes DON-7 Assessment Billing - DON-7 Assessment Tool: DON-7 Assessment 93766 ([id number]) Assessment & Plan Assessment & Plan (1) Essential hypertension: Code(s): I10 - Essential (primary) hypertension Category: Medical (2) Spondylosis of cervical spine: Code(s): M47.812 - Spondylosis without myelopathy or radiculopathy, cervical region Category: Medical (3) Degeneration, intervertebral disc, cervical: Code(s): M50.30 - Other cervical disc degeneration, unspecified cervical region Category: Medical (4) Radiculopathy, cervical: Comment: Currently under workman's comp, sees Dr. Golden referred to [facility] neurosurgery Code(s): M54.12 - Radiculopathy, cervical region Category: Medical (5) Anxiety: Code(s): F41.9 - Anxiety disorder, unspecified Category: Medical Plan The patient will continue the current regimen of non-opioid analgesics for pain management and to follow-up with Dr. Golden. An evaluation for functional capacity was ordered. Considering occupational challenges and legal issues, referral to an occupational or industrial rehabilitation consultant is recommended. The patient?s hypertension and anxiety require monitoring, continued on metoprolol succinate ER 25 mg to take 1 tab night, takes lorazepam as needed for acute anxiety attacks. Discussed stress reduction techniques and referral for mental health consultation, which patient declined at present time.. Patient was informed and verbally consented to the use of an ambient scribe for clinic note documentation during this visit. Orders: Orders OT Evaluation and Treatment Today M47.812 - Spondylosis without myelopathy or radiculopathy, cervical region, M50.30 - Other cervical disc degeneration, unspecified cervical region, M54.12 - Radiculopathy, cervical region
== END 2024-10-01 12:13 | disposition home or self-care (01) ==
PROVIDERS: PCP Internal Medicine; Visit Provider Internal Medicine
DX: I10 Essential (primary) hypertension (principal); M47.812 Spondylosis without myelopathy or radiculopathy, cervical region; M50.30 Other cervical disc degeneration, unspecified cervical region; M54.12 Radiculopathy, cervical region; F41.9 Anxiety disorder, unspecified

== ENCOUNTER → 2024-10-11 13:35 | Outpatient (BNVA) | payer BC, SELFPAY | PROVIDERS: PCP Internal Medicine; Visit Provider Internal Medicine Cardiovascular Disease | DX: R94.31 Abnormal electrocardiogram [ECG] [EKG] (principal); R07.9 Chest pain, unspecified | CPT/HCPCS: 93005 ==

== ENCOUNTER → 2024-10-29 09:27 | Outpatient (REF) | payer BC, SELFPAY ==
--- NOTE | 2024-10-29 09:30 | CA_ITS ---
Transthoracic Echocardiogram Patient (Last, First, Middle): Amanda Diaz R Gender: Female Date of : 1965 Age: 59 Procedure Date: 10/29/2024 Procedure Type: Transthoracic Echocardiogram Location: OP Height: 170.18 cm Weight: 78.02 kg BSA: 1.90 m2 Heart Rate: bpm BP: 159 / 94 mmHg Operator Bearer Systems: MOHAN Referring MD: Grady Hill MD Symptoms: R94.31 - Abnormal electrocardiogram [ECG] [EKG] Study Quality: Adequate Conclusions: - The left ventricular systolic function is normal. The calculated ejection fraction is 56% by biplane method. - No obvious valvular pathology seen on this study. Findings Left Ventricle Normal left ventricular cavity size. There is normal left ventricular wall thickness. The left ventricular systolic function is normal. The calculated ejection fraction is 56% by biplane method. There is no evidence of regional wall motion abnormalities. Diastolic function is normal for age. Mild focal hypertrophy of the basal septum. Right Ventricle Normal right ventricular cavity size and systolic function. Atria Both atria are normal in size. Aortic Valve There is a normal trileaflet aortic valve. There is no aortic valve stenosis. There is no aortic valve regurgitation. Mitral Valve The mitral valve appears normal. There is trace mitral valve regurgitation. There is no mitral valve stenosis. Pulmonic Valve The pulmonic valve is likely normal. Tricuspid Valve There is trace tricuspid valve regurgitation. There is no evidence of pulmonary hypertension. Great Vessels The aortic annulus, sinuses of valsalva, asc aorta, and aortic arch are normal in size. Venous The inferior vena cava is normal in size and collapses greater than 50% with inspiration. Pericardium/Pleural There is no evidence of pericardial effusion. Prior Study Comparison No prior study available for comparison. Recommendations, Care & Conclusions No obvious valvular pathology seen on this study. Measurements 2D Linear Measurements IVSd: 0.72 0.6-0.9/0.6-1.0 cm LVIDd: 5.72 3.9-5.3/4.2-5.9 cm LVIDd Index: 3.01 2.4-3.2/2.2-3.1 cm/m2 LVIDs: 4.03 2.0-3.6 cm LVPWd: 0.73 0.7-1.1 cm LA Diam: 3.90 2.7-3.8/3.0-4.0 cm LAIDs Index: 2.05 1.5-2.3 cm/m2 LV Mass: 188.71 67-162/88-224 g LV Mass Index: 99.32 43-95/49-115 g/m2 LVOT Diam: 2.20 3.0+(-)1.3 cm 2D Systolic Function EF 4C: 57.70 >55% EF 2C: 56.20 >55% EF BiP: 56.40 >55% Mitral Valve MV Pk E: 0.68 MV PK A: 0.75 MV Decel Time: 250.00 E/A: 0.90 E'Lateral: 5.87 E'Medial: 5.66 E/E' Med: 12.00 E/E' Lat: 11.60 PHT: 73.00 MVA PHT: 3.01 Decel [place]: 2.72 Aortic Valve AoV Pk Gilberto: 1.16 AoV Mn Gilberto: 0.78 AoV VTI: 0.28 AoV Pk Grad: 5.00 Aov Mn Grad: 3.00 LEOLA Cont.VTI: 3.06 LVOT LVOT Pk Gilberto: 1.02 LVOT Mn Gilberto: 0.70 LVOT VTI: 0.22 LVOT Pk Grad: 4.00 LVOT Mn Grad: 2.00 LVOT Diam: 2.20 LVOT Area: 3.80 Diastolic Function MV Pk E: 0.68 MV Pk A: 0.75 E/A: 0.90 E'Medial: 5.66 E/E' Med: 12.00 E' Laterial: 5.87 E/E' Lat: 11.60 Right Ventricle TAPSE (mm): 26.90 TVS' Gilberto: 12.40 Tricuspid Valve TR Pk Gilberto: 1.79 TR Pk Grad: 13.00 RA Press: 3.00 RVSP: 16.00 Great Vessels Aorta Sinus of Valsalva: 3.41 2.0-3.[address] [place]: 3.01 1.7-3.4 cm Ao Asc: 3.70 2.1-3.4 cm Ao Arch: 2.90 Updated in Other Vendor System with Status of Final Emmanuel Gabriel MD electronically signed on 10/29/2024 11:29:39 AM with status of Final
== END ==
LOC: HO.CARD 09:27
PROVIDERS: PCP Internal Medicine; Visit Provider Internal Medicine Cardiovascular Disease
DX: R94.31 Abnormal electrocardiogram [ECG] [EKG] (principal)
CPT/HCPCS: 93306

== ENCOUNTER → 2024-10-29 09:30 | Outpatient (BNV) | payer BC, SELFPAY | PROVIDERS: PCP Internal Medicine; Visit Provider Internal Medicine | DX: I42.2 Other hypertrophic cardiomyopathy (principal) | CPT/HCPCS: 93306 ==

== ENCOUNTER → 2024-11-16 09:41 | Outpatient (BNVA) | payer BC, SELFPAY | PROVIDERS: PCP Internal Medicine ==

== ENCOUNTER 2024-11-20 13:02 | Outpatient (AMB) | payer BC, SELFPAY ==
--- NOTE | 2024-11-20 13:18 | A.OFFVIS_ITS ---
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: No Accompanied by: Self / Same As Patient Allergies Seasonal Allergies Allergy (Severe, Verified 10/07/24 18:39) congestion codeine [Codeine] Allergy (Intermediate, Verified 10/07/24 18:39) nausea/dizziness/vomiting oxycodone [From Tylox] Allergy (Intermediate, Verified 10/07/24 18:39) Nausea and Vomiting, Dizziness varenicline [From Chantix] Adverse Reaction (Intermediate, Verified 10/07/24 18:39) Irritable Medication List - Last Reconciled 11/20/24 by Ryan James NP epinephrine (EpiPen 2-Bud) 0.3 mg (0.3 mL) IM Q4H PRN ibuprofen 200 mg PO Q6H PRN lorazepam 0.5 mg PO BID PRN metoprolol succinate ER 25 mg (1/2 x 50 mg) PO QPM HPI Comments Details: This is a 59-year-old female patient presenting for a follow-up visit. She was previously seen in the office for elevated blood pressure and an abnormal EKG, which led to an echocardiogram and depending stress test. Today the patient reports feeling well overall but has experienced increased anxiety today related to frustration regarding the cancellation of her colonoscopy 2 weeks ago. She states this was postponed due to a pending stress test and mentions her history of diverticulitis and polyps as well as strong family history of colon cancer placing her at a high risk. As a result, she is requesting to have a stress test rescheduled sooner, as it is currently set for January. The patient is otherwise denying any exertional chest pain, shortness of breath, palpitations, fatigue, orthopnea, dizziness, PND, leg edema, presyncope, or syncope. She reports that her blood pressures has been stable at home and has been tolerating the metoprolol well. The patient remains active, regularly walking for exercise but continues to smoke. [facility] Medical History Essential hypertension Elevated blood pressure reading Intermittent palpitations Acquired deformity of toenail History of adenomatous polyp of colon Postmenopausal Nicotine dependence, cigarettes, uncomplicated Tubular adenoma of colon Headache Diverticulitis Mastocytosis Anxiety Surgical History History of endometrial ablation (~2003) History of laparoscopic cholecystectomy History of lumbar discectomy History of tubal ligation History of colonoscopy Family History Mother Heart disease Father Heart disease Cancer Liver cancer Brother Heart disease Bladder cancer Sister Breast cancer Brother No problems noted. Sister No problems noted. Sister No problems noted. Sister No problems noted. 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 Cognitive needs: No Hearing needs: No Vision needs: No Review of Systems Const Denies chills, Denies fatigue, Denies fever(s), Denies weight gain and Denies weight loss ENT Denies dizziness Card Denies chest pain, Denies leg edema, Denies lightheadedness, Denies palpitations, Denies dyspnea on exertion, Denies orthopnea and Denies other Resp Denies cough and Denies dyspnea on exertion GI Denies hematochezia and Denies change in stool character Musc Denies abnormal gait, Denies muscle weakness, Denies numbness, Denies radiating pain into limb and Denies tingling Neuro Denies abnormal gait, Denies dizziness, Denies numbness and Denies tingling Endo Denies fatigue and Denies palpitations Physical Exam Vital Signs: Last Vital Signs Pulse 97 11/20/24 13:19 BP 172/80 H 11/20/24 13:19 BMI result Body Mass Index 27.0 Const General: cooperative, healthy appearing, comfortable and no acute distress Orientation/consciousness: patient oriented x3 HEENT Head: Yes normal to inspection Neck Neck: Yes normal visual inspection, Yes trachea midline and Yes supple Chest Chest palpation & inspection: normal inspection of the chest Resp Effort & Inspection: normal respiratory effort Auscultation: clear to auscultation bilaterally, no crackles, no rales, no rhonchi and no wheezes Cardio Jugular venous distension: no JVD Palpation: normal PMI Rate: regular rate Rhythm: regular rhythm Heart sounds: S1 normal heart sound present, S2 normal heart sound present, no click, no gallops, no murmurs and no rubs Peripheral pulses: Peripheral pulses 2+ throughout GI Inspection: Yes normal to inspection Palpation (GI): Soft to palpation Auscultation: normal bowel sounds Skin General skin exam: no rashes or lesions noted Neuro General: patient oriented x3 Extrem General: Yes normal to inspection, No no pedal edema and No calf tenderness Psych Appearance: grossly normal Mental Status: mental status grossly normal Speech and movement: Normal speech and movement present Assessment & Plan Assessment & Plan (1) Essential hypertension: Code(s): I10 - Essential (primary) hypertension Category: Medical Plan: Patient's blood pressure today is elevated at 170/80, which she attributes to her frustration and anxiety currently. However, patient reports that earlier this morning after going for a walk, she rechecked her blood pressure and it was stable in the 120 systolic. Patient has a history of not tolerating an increased dose of metoprolol in the past, she should continue with 25 mg daily for now. We will bring the patient back in 1 week for a follow-up with the nurse to check her blood pressure. Advised the patient to continue monitoring her blood pressures at home, maintain a log, and bring her blood pressure cuff to next visit. If the blood pressure remains elevated, we may consider adding an Blake inhibitor or an Arb to her regimen. (2) Hyperlipidemia: Code(s): E78.5 - Hyperlipidemia, unspecified Category: Medical Plan: Most recent LDL in 05/29 was 183, not at goal. Continues to deny going on the medical therapy. Advised heart healthy diet, regular exercise, smoking cessation, and LDL goal less than 100. (3) Preop cardiovascular exam: Code(s): Z01.810 - Encounter for preprocedural cardiovascular examination Plan: 10/29/2024-patient underwent an echo study that showed normal EF at 56%, with no valvular or wall motion abnormalities. We will try to bring her stress test date up. For now the plan is for patient to follow-up in 1 week with the nurse and 1 year in the office. In the interim, patient will call us with questions or change of symptoms. This note was generated using voice recognition software. While every effort has been made to ensure accuracy and proper machine stripper, there may be occasional errors that could affect the content or meaning of the described symptoms. Orders: Orders NM cardiolite stress test 2 Weeks R07.9 - Chest pain, unspecified, R94.31 - Abnormal electrocardiogram [ECG] [EKG] Coding Level of Care Code Est Pt Level 4 (58715) Diagnoses Essential hypertension I10 Hyperlipidemia E78.5 Preop cardiovascular exam Z01.810 Time Spent (min) 31 Comment Time spent in reviewing the chart, test results, assessment, counseling and documentation.
[2024-11-20 13:19] VITALS: BP 172/80; PULSE 97; BMI 27.0
--- OUTSIDE RECORDS SUMMARY | 2024-11-20 15:18 | XMS_ITS | Patient Health Record ---
Author Organization [facility] [place] Address [address] [facility] [place] [address] Care Team Providers Care Unit Support Representative Name Role Phone Louann CARRILLO, Marilynn Fry Primary Care Provider Un available Yadira Pace Unavailable [phone] Allergies Allergen (clinical drug ingredient) Drug/Non Drug [...] d Orally every 8 hrs Active EpiPen 2-Bdu 0.3 MG/0.3ML as directed Injection Active Nasacort [...] Problem Status W/U Status Risk Notes Problem [id number] Hallux valgus (acquired), left foot (M20.12) Active confirmed Plan Of Treatment Pending Test Test Name Order Date Tc99 3 phase Bone Scan 04/03/2019 X ray : Foot, left 3V 04/03/2019 Insurance Providers Payer Name Payer Address Payer Phone Subscriber Number Group Number Insured Name Patient Relationship to Insured Coverage Start Date Coverage End Date [facility] All Others [address] [place] [address] [id number] Babak Diaz Spouse - patient is [...]
== END 2024-11-20 13:44 | disposition home or self-care (01) ==
PROVIDERS: PCP Internal Medicine
DX: I10 Essential (primary) hypertension (principal); E78.5 Hyperlipidemia, unspecified; Z01.810 Encounter for preprocedural cardiovascular examination
CPT/HCPCS: 99214

== ENCOUNTER → 2024-11-20 13:02 | Outpatient (BNVA) | payer BC, SELFPAY | PROVIDERS: PCP Internal Medicine ==

== ENCOUNTER → 2024-11-27 07:42 | Outpatient (REF) | payer BC, SELFPAY ==
--- NOTE | ~2024-11-27 | NM_ITS ---
EXERCISE MYOCARDIAL PERFUSION STUDY INDICATION: Chest pain to evaluate for myocardial ischemia TECHNIQUE: The patient was brought in for an exercise perfusion study on 11/27/2024. Patient performed exercise as per Dheeraj protocol and was injected 30 mCi of sestamibi once target heart rate was achieved. Images were obtained using the SPECT gamma camera interlaced with the gating device. Images were obtained in supine position. Resting perfusion study was performed on 11/28/2024. Patient was administered 30 mCi of sestamibi intravenously at rest. Images were then obtained in supine position. Images obtained with and without CT attenuation. Total DLP 86 mGy-cm. Images were processed with the software and compared side to side in short axis, horizontal long axis and vertical long axis views. FINDINGS: Raw images were reviewed The stress perfusion study showed nonattenuated images show normal uptake ordered images in all segments of the LV myocardium. Attenuated corrected images show mildly reduced uptake in the apex of the LV myocardium. There is suggestion of left ventricle hypertrophy. The gated study shows normal LV systolic function with visually estimated LVEF of greater than 55%. LV cavity is normal in size. The gated study shows normal systolic wall thickening and contraction of segments. Resting study shows nonattenuated images show normal uptake of radiotracer in all segments of the LV myocardium. Gating at rest reveals normal systolic wall motion with ejection fraction at 58%. The findings are consistent with normal myocardial perfusion. NM/NM cardiolite stress test IMPRESSION: 1. Myocardial perfusion imaging study shows normal myocardial perfusion. 2. Gated LVEF is 58%. 3. Transient ischemic dilatation not present. EKG revealed negative for ischemia. Electronically signed by: Grady Hill MD 11/28/2024 10:40 AM EDT
--- NOTE | 2024-11-27 07:44 | CA_ITS ---
Acquisition Time: 2024-11-27 08:05:53 Total Exercise Time: 00:07:06 Test Indications: ABN EKG Medications: SEE H&P Protocol: DHEERAJ Max HR: 141 BPM 87% of Pred: 162 BPM Max BP: 204/98 mmHG Max Work Load: 8.6 METS Exercise Stress Test with exercise 7 mins 6 secs of Dheeraj Protocol, achieving 87% MPHR, with reports of mild SOB, no chest pain, with isolated PACs, with hypertensive response- baseline BP 170/100 that rodney up to 204/98- asymptomatic. Without EKG changes meeting criteria for ischemia. In recovery, breathing returned to baseline. BP improved. Nuclear images pending. Test reviewed with Dr. Hill. PS- had her take AM metoprolol and BP came down to 166/98 before starting the test. Referred By: Grady Hill Electronically Signed By: Ryan James
--- OUTSIDE RECORDS SUMMARY | 2024-11-27 07:45 | XMS_ITS | Patient Health Record ---
Author Organization [facility] [place] Address [address] [facility] [place] [address] Care Team Providers Care Char House Supervisor Name Role Phone Louann CARRILLO, Marilynn Fry Primary Care Provider Un available Yadira Pace Unavailable [phone] Allergies Allergen (clinical drug ingredient) Drug/Non Drug [...] Problem Status W/U Status Risk Notes Problem [id number] Hallux valgus (acquired), left foot (M20.12) Active confirmed Plan Of Treatment Pending Test Test Name Order Date Tc99 3 phase Bone Scan 04/03/2019 X ray : Foot, left 3V 04/03/2019 Insurance Providers Payer Name Payer Address Payer Phone Subscriber Number Group Number Insured Name Patient Relationship to Insured Coverage Start Date Coverage End Date [facility] All Others [address] [place] [address] [id number] Babak Diaz Spouse - patient is [...]
== END ==
LOC: HO.CARD 07:42
PROVIDERS: PCP Internal Medicine; Visit Provider Internal Medicine Cardiovascular Disease
DX: R07.9 Chest pain, unspecified (principal); R94.31 Abnormal electrocardiogram [ECG] [EKG]
CPT/HCPCS: 78452; 93017; A9500

== ENCOUNTER → 2024-11-27 07:44 | Outpatient (BNV) | payer BC, SELFPAY | PROVIDERS: PCP Internal Medicine | DX: I49.1 Atrial premature depolarization (principal); R06.02 Shortness of breath; R07.9 Chest pain, unspecified | CPT/HCPCS: 78452; 93016; 93018 ==

== ENCOUNTER 2024-12-13 07:04 | Day surgery (SDC) | payer BC, SELFPAY ==
[2024-12-11 11:38] VITALS: BMI 27.0
--- NOTE | 2024-12-12 10:28 | P.CONAN_ITS ---
Documented by User: Eboni Morris NP 12/12/24 10:29 HPI - Anesthesia Eval Consult details Narrative: 59yo F for Colonoscopy Cardiac optimized. W/U with [facility] for htn, abn EKG PMFSH Active Problems Active Problems: All Active Problems Hyperlipidemia (Acute) Abnormal EKG (Acute) Essential hypertension (Acute) Elevated blood pressure reading (Acute) Acquired deformity of toenail (Acute) Radiculopathy, cervical (Acute) Degeneration, intervertebral disc, cervical (Acute) Spondylosis of cervical spine (Acute) Postmenopausal (Acute) Erythrocytosis (Acute) Nicotine dependence, cigarettes, uncomplicated (Acute) Diverticulosis large intestine w/o perforation or abscess w/o bleeding (Acute) IBS (irritable bowel syndrome) (Acute) Anxiety (Acute) Past Medical History Medical History Essential hypertension Elevated blood pressure reading Intermittent palpitations Acquired deformity of toenail History of adenomatous polyp of colon Postmenopausal Nicotine dependence, cigarettes, uncomplicated Tubular adenoma of colon Headache Diverticulitis Mastocytosis Anxiety Family History Family History Mother Heart disease Father Heart disease Cancer Liver cancer Brother Heart disease Bladder cancer Sister Breast cancer Brother No problems noted. Sister No problems noted. Sister No problems noted. Sister No problems noted. Family history of problems with anesthesia: No Surgical History Surgical History History of endometrial ablation (~2003) History of laparoscopic cholecystectomy History of lumbar discectomy History of tubal ligation History of colonoscopy History of Problems with Anesthesia: No Social History Social History Household Members: Spouse Housing: House Are you a primary health care specialist to a significant other at home: No Do you presently have visiting nurse or other home services: No Alcohol intake: never Patient Tobacco Use Status: Current everyday Tobacco user Tobacco use type: Cigarette Cigarette Packs Per Day: 0 Cigarettes Per Day: 10 Years Smoked: (current smoker, onset 17yo, 1/2-3/4ppd x 40yrs, 25pyh) Smoked in Last 30 Days: Yes e-Cigarette/Vaping Use: Never Used Patient Interested in Nicotine Replacement: No Substance Use Type: Marijuana Have you been hit, kicked, punched, or otherwise hurt by someone within the past year? 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 Cognitive needs: No Hearing needs: No Vision needs: No Meds Allergies Allergy/AdvReac Type Severity Reaction Status Date / Time Seasonal Allergies Allergy Severe congestion Verified 12/13/24 07:16 codeine [Codeine] Allergy Intermediate nausea/dizz Verified 12/13/24 07:16 iness/vomit ing oxycodone [From Tylox] Allergy Intermediate Nausea and Verified 12/13/24 07:16 Vomiting, Dizziness varenicline [From Chantix] AdvReac Intermediate Irritable Verified 12/13/24 07:16 Home Medications ?Medication ?Instructions ?Recorded ?Confirmed ?Last Taken ?Type ibuprofen 200 mg tablet 200 mg PO Q6H PRN Pain 10/07/24 12/13/24 Unknown History Exam Height,Weight and Vital Signs: Height 5 ft 7 in Weight 78.188 kg Narrative Narrative: 10/29/2024-patient underwent an echo study that showed normal EF at 56%, with no valvular or wall motion abnormalities. 11/27/2024-patient underwent myocardial perfusion study which was normal. EKG 10/2024 Details: EKG shows normal sinus rhythm with diffuse ST segment sagging in multiple leads with mild ST elevation in lead AVR, suggestive of ischemic changes Assessment and Plan Assessment Anesthesia Assessment: Chart Reviewed Final Anesthetic Review Family History of Problems with Anesthesia: No History of Problems with Anesthesia: No Documented by User: Ting Bernal MD 12/13/24 07:58 PMFSH Past Medical History Medical History Essential hypertension Elevated blood pressure reading Intermittent palpitations Acquired deformity of toenail History of adenomatous polyp of colon Postmenopausal Nicotine dependence, cigarettes, uncomplicated Tubular adenoma of colon Headache Diverticulitis Mastocytosis Anxiety Family History Family History Mother Heart disease Father Heart disease Cancer Liver cancer Brother Heart disease Bladder cancer Sister Breast cancer Brother No problems noted. Sister No problems noted. Sister No problems noted. Sister No problems noted. Surgical History Surgical History History of endometrial ablation (~2003) History of laparoscopic cholecystectomy History of lumbar discectomy History of tubal ligation History of colonoscopy Social History Social History Household Members: Spouse Housing: House Are you a primary health care specialist to a significant other at home: No Do you presently have visiting nurse or other home services: No Alcohol intake: never Patient Tobacco Use Status: Current everyday Tobacco user Tobacco use type: Cigarette Cigarette Packs Per Day: 0 Cigarettes Per Day: 10 Years Smoked: (current smoker, onset 17yo, 1/2-3/4ppd x 40yrs, 25pyh) Smoked in Last 30 Days: Yes e-Cigarette/Vaping Use: Never Used Patient Interested in Nicotine Replacement: No Substance Use Type: Marijuana Have you been hit, kicked, punched, or otherwise hurt by someone within the past year? 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 Cognitive needs: No Hearing needs: No Vision needs: No Meds Allergies Allergy/AdvReac Type Severity Reaction Status Date / Time Seasonal Allergies Allergy Severe congestion Verified 12/13/24 07:16 codeine [Codeine] Allergy Intermediate nausea/dizz Verified 12/13/24 07:16 iness/vomit ing oxycodone [From Tylox] Allergy Intermediate Nausea and Verified 12/13/24 07:16 Vomiting, Dizziness varenicline [From Chantix] AdvReac Intermediate Irritable Verified 12/13/24 07:16 Home Medications ?Medication ?Instructions ?Recorded ?Confirmed ?Last Taken ?Type ibuprofen 200 mg tablet 200 mg PO Q6H PRN Pain 10/07/24 12/13/24 Unknown History Exam Airway Mallampati Class: II TM Dist: >3cm Neck ROM: Full Denture: Upper and Lower Heart: rrr Lungs: cta Assessment and Plan Assessment Anesthesia Assessment: Anesthesia Plan Discussed Final Anesthetic Review NPO: Yes ASA Class: II Final Preanesthetic Review: No Changes in Pt Med Stat, Meds/Allgs Chart Reviewed, Consent Obtained/Reviewed and Anes Risks/Benef Reviewed Patient Risk: Low Procedure Risk: Low Anesthetic Plan Anesthetic Plan: MAC: Disposition: Standard PACU
[2024-12-13 07:15] VITALS: BMI 26.5
[2024-12-13] MEDS: Lactated Ringers 1,000 ML 100 ML IVCONT (07:21)
[2024-12-13 07:28] VITALS: BP 144/89; PULSE 90; RESP 18; TEMP 36.8; O2SAT 97
--- NOTE | 2024-12-13 07:59 | PC.NURSE ---
will call pharmacy. code on LR not scanning.
--- NOTE | 2024-12-13 08:03 | MHC.SHP ---
Pre-Procedural Eval Section A - 24 Hr Update-Section A only Date of Service: 12/13/24 Section B - Complete if H&P > 30 days Chief Complaint: Encounter for screening for malignant neoplasm of Relevant Family History (Specify if Yes): No Relevant Social History: Tobacco Use Present Medications: see Short Stay Collaborative assessment Medical History: Significant History (Essential hypertension Elevated blood pressure reading Intermittent palpitations Acquired deformity of toenail History of adenomatous polyp of colon Postmenopausal Nicotine dependence, cigarettes, uncomplicated Tubular adenoma of colon Headache Diverticulitis Mastocytosis Anxiety) History of Previous Operations: Relevant previous surgery/procedure and date(s) (History of endometrial ablation (~2003) History of laparoscopic cholecystectomy History of lumbar discectomy History of tubal ligation History of colonoscopy) Allergies: Allergies Allergy/AdvReac Type Severity Reaction Status Date / Time Seasonal Allergies Allergy Severe congestion Verified 12/13/24 07:16 codeine [Codeine] Allergy Intermediate nausea/dizz Verified 12/13/24 07:16 iness/vomit ing oxycodone [From Tylox] Allergy Intermediate Nausea and Verified 12/13/24 07:16 Vomiting, Dizziness varenicline [From Chantix] AdvReac Intermediate Irritable Verified 12/13/24 07:16 Review of Systems Sugical H&P ROS: Negative: Constitution, Cardiovascular, Respiratory, Neurological, Psychiatric, Hem-Onc, Allergic/Immunologic, Gastrointestinal, Genitourinary, Musculoskeletal, Integumentary, Endocrine and Eyes/Ears/Nose/Throat Exam Surgical H&P Exam: Normal: HEENT, Normal: Heart, Normal: Lungs, Normal: Extremities, Normal: Abdomen, Normal: Skin and Normal: Neurological Plan Diagnosis/Plan: Unchanged I have reviewed the history and physical and performed a pertinent physical examination on my patient. No changes have occurred unless specified. Time Spent With Patient Time: Total time managing care of this patient today ____ minutes.
--- NOTE | 2024-12-13 08:27 | P.OPN-COLO_ITS ---
Colonoscopy Operative Note Operative Note Date of Service: 12/13/24 Narrative: Operative Information Procedure Description: Colonoscopy Indication: screening Anesthesia: MAC COLONOSCOPY Instrument: Olympus variable stiffness pediatric scope 190L Colonoscopy Monitoring: Vital signs and clinical assessment, continuous EKG monitoring, Pulse oximetry, Carbon Dioxide monitoring and blood pressure monitoring were done throughout the procedure. Colon withdrawal time was 12 minutes. Procedure: The patient was placed in the left lateral decubitis position and pre-procedure medications were administered. After a digital rectal examination of the ano-rectum, the video colonoscope was inserted into the rectum and advanced through the colon to the cecum/TI. The colonoscope was slowly withdrawn in a retrograde panoramic fashion and the colon mucosa was carefully examined including a retroflexed view of the rectum. Findings and interventions are described below. Procedure Difficulty: easy Findings: Terminal Ileum-normal Cecum:normal Right sided retroflexion- normal Ascending Colon: normal Transverse Colon -normal Descending Colon:normal Sigmoid Colon: mild diverticulosis, 6-8 mm flat polyp raised with eleview and removed with cold snare, with edges removed with cold forceps Rectum: Retroflexion with small internal hemorrhoids seen, grade I, 4-5 mm sessile polyp removed with cold forceps Anorectum - normal Intervention: cold forceps, cold snare and eleview Colon preparation: [place] Bowel Preparation Scale Right colon; 2 Transverse colon: 2 Left colon; 2 (0 = Unprepared colon segment with mucosa not seen due to solid stool that cannot be cleared. 1 = Portion of mucosa of the colon segment seen, but other areas of the colon segment not well seen due to staining, residual stool and/or opaque liquid. 2 = Minor amount of residual staining, small fragments of stool and/or opaque liquid, but mucosa of colon segment seen well. 3 = Entire mucosa of colon segment seen well with no residual staining, small fragments of stool or opaque liquid) Impression and Post Procedure Diagnosis: diverticulosis colon polyps internal hemorrhoids Plan: High fiber diet leaflet Avoid straining at stool, epsom salts and sitz bath, anusol supps or cream Repeat Colonoscopy in 5 years if adenomatous polyps, 10 yrs if hyperplastic or earlier if clinically indicated Above findings were reviewed with the patient and relevant handouts were provided if indicated.
[2024-12-13 08:30] VITALS: BP 104/55; PULSE 80; RESP 12; TEMP 36.1; O2SAT 97
[2024-12-13 08:45] VITALS: BP 118/74; PULSE 74; RESP 16; TEMP 36.1; O2SAT 97
== END 2024-12-13 09:27 | disposition home or self-care (01) ==
PROVIDERS: PCP Internal Medicine; Visit Provider Internal Medicine Gastroenterology
PROC: 0DJD8ZZ Inspection of Lower Intestinal Tract, Via Natural or Artificial Opening Endoscopic (ICD-10-PCS; CPT 45378; principal; 2024-12-13 08:20)
DX: Z12.11 Encounter for screening for malignant neoplasm of colon (principal); Z86.0101 Personal history of adenomatous and serrated colon polyps; D12.5 Benign neoplasm of sigmoid colon; K62.1 Rectal polyp; K57.30 Diverticulosis of large intestine without perforation or abscess without bleeding; Z87.19 Personal history of other diseases of the digestive system; K64.0 First degree hemorrhoids; I10 Essential (primary) hypertension; D47.09 Other mast cell neoplasms of uncertain behavior; R00.2 Palpitations; R51.9 Headache, unspecified; F41.9 Anxiety disorder, unspecified; Z79.1 Long term (current) use of non-steroidal anti-inflammatories (NSAID); Z79.899 Other long term (current) drug therapy; Z88.5 Allergy status to narcotic agent; Z88.8 Allergy status to other drugs, medicaments and biological substances; Z90.49 Acquired absence of other specified parts of digestive tract; Z98.890 Other specified postprocedural states; F17.210 Nicotine dependence, cigarettes, uncomplicated
CPT/HCPCS: 45385; 45380; 45381; 88305; J2003; J2704

== ENCOUNTER → 2024-12-13 07:04 | Outpatient (BNV) | payer BC, SELFPAY | PROVIDERS: PCP Internal Medicine; Visit Provider Internal Medicine Gastroenterology | DX: Z12.11 Encounter for screening for malignant neoplasm of colon (principal); D12.5 Benign neoplasm of sigmoid colon; K62.1 Rectal polyp; K64.0 First degree hemorrhoids; K57.30 Diverticulosis of large intestine without perforation or abscess without bleeding | CPT/HCPCS: 45380; 45381; 45385 ==

== ENCOUNTER 2025-02-27 09:01 | Outpatient (REF) | payer BC, SELFPAY ==
--- OUTSIDE RECORDS SUMMARY | 2025-02-27 09:44 | XMS_ITS | Patient Health Record ---
Author Organization [facility] Address [address] [place] [address] Care Team Providers Care Wafer Polishing Worker Name Role Phone Louann CARRILLO, Marilynn Primary Care Provider Nilo Eid Unavailable [phone] Vannesa Camarillo Unavailable Unavailable Allergies Allergen (clinical drug ingredient) Drug/Non Drug Allergy documented on EMR Reaction Allergy Type Onset Date Status sensitvity to pain meds (uncoded) Unknown Allergy Active Reason For Referral No Information Medications Medication SIG (Take, Route, Frequency, Duration) Notes Start Date End Date Status Ibuprofen 800 MG 1 tablet with food o r milk as needed Orally Three times a day Active Nasacort Allergy 24HR 55 MCG/ACT 1 spray in each nostril Nasally Once a day for 30 day(s) Active LORazepam 0.5 MG (Schedule IV Drug) T YANELI 1 TABLET BY MOUTH 1/2 HR BEFORE TRAVEL NEEDED Oral for 5 Not-Taking Aspirin 81 81 MG 1 tablet Orally Once a day for 30 day(s) Active Diclofenac Sodium 1 % APPLY 2 GMTO AFECT ED AREA DIRECTED 2 TIMES DAILY NEEDED FOR PAIN TRANSDERMAL Transdermal for 25 Not-Taking Immunizations Vaccine Route Administration Date Status Comme nts Influenza Unknown 10/06/2019 Administered Social History Tobacco Use: Social History Observation Description Date Details (start date - stop date) Current Smoker NA - NA Tobacco Use/Smoking Question Answer Notes Patient is a current smoker How often do you smoke cigarettes? every day How many cigarettes a day do you smoke? 11-20 Alcohol Screen Question Answer Notes Did you have a drink contain ing alcohol in the past year? Yes How often did you have a dri nk containing alcohol in the past year? Never (0 point) How many drinks did you have on a typical day when you were drinking in the past year? 1 or 2 drinks (0 point) How often did you have 6 or more drinks on one occasion in the past year? Never (0 point) Points 0 Interpretation Negative Section Notes: Smoker 1/2 ppd; smokes marij uana for pain(back pain, torn left hip labrum) Problems Problem Type SNOMED Code ICD Code Onset Dates Problem Status W/U Status Risk Notes Problem [id number] Encounter for screening for malignant neoplasm of colon (Z12.11) Active confirmed Problem 778951115 History of adenomatous polyp of colon (Z86.010) Active confirmed Problem [id number] Preprocedural examination (Z01.818) Active confirmed Plan Of Treatment Future Test Test Name Order Date COLONOSCOPY 02/13/2020 Insurance Providers Payer Name Payer Address Payer Phone Subscriber Number Group Number Insured Name Patient Relationship to Insured Coverage Start Date Coverage End Date [facility] [address] [place], [place] [id number] JAVIER RETANA Self - patient is the insured Medical (General) History Medical History History ICD Code Polycythemia vera with thera peutic phlebotomy q 1 month-sees Dr. Camarillo for this Kidney stone Denies [place],DM,CVA,Lung disease,renal dise ase History of colon polyps--Dr. Wilkinson--had first exam in her 30's for evaluation of diarrhea--found precancerous polyps and has had 4 or 5 other colonoscopies with removal of polyps Mastocytosis--has an Epipen Surgical History Surgery Date(Month/Year) back surgery x 2 tubal ligation cholecystectomy jaw surgery
[2025-02-27 10:25] LABS: Alanine Aminotransferase 14 U/L (0-31); Albumin Level 4.7 g/dL (3.5-5.0); Alkaline Phosphatase 89 U/L (39-117); Aspartate Amino Transferase 19 U/L (5-31); Bilirubin Direct 0.2 mg/dL (0.0-0.5); Bilirubin Total 0.5 mg/dL (0.0-1.0); Total Protein 7.5 g/dL (6.5-8.0)
== END 2025-02-27 09:02 | disposition home or self-care (01) ==
LOC: HO.LAB 09:01
PROVIDERS: PCP Internal Medicine; Visit Provider Student in an Organized Health Care Education/Training Program
DX: B35.1 Tinea unguium (principal)
CPT/HCPCS: 36415; 80076

== ENCOUNTER 2025-03-23 06:51 | Outpatient (REF) | payer BC, SELFPAY ==
--- OUTSIDE RECORDS SUMMARY | 2025-03-23 06:53 | XMS_ITS | Patient Health Record ---
Author Organization [facility] Address [address] [place] [address] Care Team Providers Care Buffet Attendant Name Role Phone Louann CARRILLO, Marilynn Primary Care Provider Nilo Eid Unavailable [phone] Vannesa Camarillo Unavailable Unavailable Allergies Allergen (clinical [...] Problem Status W/U Status Risk Notes Problem [id number] Encounter for screening for malignant neoplasm of colon (Z12.11) Active confirmed Problem 368091024 History of adenomatous polyp of colon (Z86.010) Active confirmed Problem 664624461413223 Preprocedural examination (Z01.818) Active confirmed Plan Of Treatment Future Test Test Name Order Date COLONOSCOPY 02/13/2020 Insurance Providers Payer Name Payer Address Payer Phone Subscriber Number Group Number Insured Name Patient Relationship to Insured Coverage Start Date Coverage End Date [facility] [address] [place], [place] [id number] JAVIER RETANA Self - patient is the insured Medical (General) History Medical History History ICD Code Polycythemia vera with thera peutic phlebotomy q 1 month-sees Dr. Camarillo for this Kidney stone Denies [place],DM,CVA,Lung disease,renal dise ase History of colon polyps--Dr. Wilkinson--had first exam in her 30's for evaluation of diarrhea--found precancerous polyps and has had 4 or 5 other colonoscopies with removal of polyps Mastocytosis--has an Epipen Surgical History Surgery Date(Month/Year) back surgery x 2 tubal ligation cholecystectomy jaw surgery
--- OUTSIDE RECORDS SUMMARY | 2025-03-23 06:53 | XMS_ITS | Encounter Summary ---
Author Organization [facility] Address [address] [place] [address] Phone Care Team Providers Care Ui Software Developer Name Role Phone Dalton Rao DO Unavailable [phone] Marilynn Lew MD Unavailable Unava ilable Marilynn Lew MD Primary Care Provider Unavailable Hayder Spear DO Unavailable [phone] Encounter Details Date Type Department Care Team (Late st Contact Info) Description 04/30/2019 Ancillary Orders [facility] [address] [place] [address] [phone] Albina Torrez MD [address] [place] [address] Orthopedics & Sports Medicine, [place] [address] [email or web address] Social History Tobacco Use Types Packs/Day Years Used Date Smoking Tobacco: Every Day Cigarettes Smokeless Tobacco: Never Alcohol Use Standard Drinks/Week Comments No 0 (1 standard drink = 0.6 oz pur e alcohol) Comments Unknown Sex and Gender Information Value Date Recorded Sex Assigned at Not on file Legal Sex Female 10:32 PM EDT Gender Identity Not on file Sexual Orientation Not on file documented as of this encounter Plan of Treatment Not on file documented as of this encounter Visit Diagnoses Not on filedocumented in this encounter Care Teams Ui Software Developer Relationship Specialty Start Date End Date Marilynn Lew MD PCP - General 09/08/17 Dalton Rao DO [address] [place] [address] Orthopedics & Sports Medicine, [place], [place] [id number] [email or web address] Historical LMR Provider 06/23/17 Marilynn Lew MD Historical LMR Provider 06/23/17 09/12/21 Hayder Spear DO [address] [place] [id number] [email or web address] Hematology and Oncology 12/07/18 documented as of this encounter Additional Source Comments The information contained in this document represents components of the legal health record. It is not the complete legal health record.[facility]
--- OUTSIDE RECORDS SUMMARY | 2025-03-23 06:53 | XMS_ITS | Patient Health Record ---
Author Organization [facility] Ronn kelsie Spickard Address [address] [facility] [place] [address] Care Team Providers Care Photograph Mounter Name Role Phone Louann CARRILLO, Marilynn Fry Primary Care Provider Un available Roxana Arevalo Unavailable [phone] Allergies Allergen (clinical drug ingredient) Drug/Non Drug Allergy documented on EMR Reaction Allergy Type Onset Date Status varenicline Chantix nightmares/mood instability Drug Allergy Active codeine Codeine Sulfate nausea and vomiting Drug Allergy Active Tylox nausea and vomiting Drug Allergy Active oxycodone oxyCODONE Unknown Drug Allergy Active Reason For Referral No Information Medications Medication SIG (Take, Route, Frequency, Duration) Notes Start Date End Date Status Benadryl Allergy 25 MG 1 tablet as neede d Orally every 8 hrs Not-Taking Diclofenac Not-Takin g Nasacort AQ Not-Taki ng Xyzal Not-Taking Custom Orthotics as directed 04/13/2019 Not-Taking Terbinafine HCl 250 MG 1 tablet daily fo r 7 days, then 3 weeks off Orally Once a day; Duration: 90 days 02/28/2025 Active LORazepam 0.5 MG 1 tablet at bedtime as needed Orally Once a day Active Metoprolol Succinate 25 MG 1 capsule Orally Once a day Active Ibuprofen 600 MG 1 tablet with food o r milk as needed Orally Three times a day Active EpiPen 2-Bud 0.3 MG/0.3ML as directed Injection Active Social History Tobacco Use: Social History Observation Description Date Details (start date - stop date) Current Smoker 02/04/2000 - NA Tobacco use other than smoking: Question Answer Notes Are you an other tobacco user? No Tobacco Control (Standard) Question Answer Notes Tobacco use: Current smoker When did you start smoking? 02/04/2000 How often do you smoke cigarettes? Every day How many cigarettes a day do you smoke? 6-10 How soon after you wake up d o you smoke your first cigarette? 6-30 minutes Additional Findings: Tobacco user Modera te cigarette smoker (10-19 cigs/day) AUDIT-C (Standard) Question Answer Notes Did you have a drink containing alcohol in the p ast year? No Points 0 Interpretation Negative Problems Problem Type SNOMED Code ICD Code Onset Dates Problem Status W/U Status Risk Notes Problem Acquired hallux valgus (06008200) Hallux valgus (acquired), left foot (M20.12) Active confirmed Vital Signs Blood pressure diastolic 60 mm Hg 02/27/2025 Height 5ft 7 in in 02/27/2025 Blood pressure systolic 128 mm Hg 02/27/2025 Weight 169 lbs lbs 02/27/2025 BMI 26.47 kg/m2 02/27/2025 Encounters Encounter Location Date Provider Diagnosis [facility] [address] 02/27/2025 Roxana Arevalo Pain in right toe(s) M79.674 ; Onychomycosis B35.1 and Pain in left toe(s) M79.[address] [address] 02/28/2025 Roxana Arevalo [address] [address] 03/11/2025 Roxana Arevalo Assessments Encounter Date Diagnosis (ICD Code) Assessment Notes Treatment Notes Treatment Clinical Notes Section Notes 02/27/2025 Pain in right toe(s) (ICD-10 - M79.674) 02/27/2025 Onychomycosis (ICD-10 - B35.1) 02/27/2025 Pain in left toe(s) (ICD-10 - M79.675) Plan Of Treatment Pending Test Test Name Order Date Tc99 3 phase Bone Scan 04/03/2019 *Liver Function Test (LFT) 02/27/2025 X ray : Foot, left 3V 04/03/2019 Next Appt Details Provider Name:Roxana pham, 07/01/2025 08:30:00 AM, [address] [place], [address], Insurance Providers Payer Name Payer Address Payer Phone Subscriber Number Group Number Insured Name Patient Relationship to Insured Coverage Start Date Coverage End Date [employer]vette [employer] [address] [place] [address] [id number] Babak Diaz Spouse - patient is the spouse of the insured Medical (General) History Medical History History ICD Code Anxiety Tobacco abuse Colonic polyps Dyslipidemia Back,Hip,and Knee pain Broken bones Gall bladder problems Chicken pox chronic sinusitis covid-19 Diverticulosis Headaches/Migraines Heart disease High Blood Pressure Surgical History Surgery Date(Month/Year) back surgery- 2 times 1988 , 1989 jaw surgery 1988 tubal ligation and ablation 1993 cholecystectomy 2005 Gall bladder removal 1999
[2025-03-23 09:22] LABS: Alanine Aminotransferase 14 U/L (0-31); Anion Gap 12 (12-20); Aspartate Amino Transferase 16 U/L (5-31); Blood Urea Nitrogen 17 mg/dL (9-16); Calcium 9.3 mg/dL (8.4-10.2); Carbon Dioxide 25 mmol/L (22-29); Chloride 108 mmol/L (96-108); Cholesterol 209 mg/dL (<200); Estimated Glomerular Filt Rate > 60; HDL Cholesterol 49 mg/dL (>40); Potassium 4.1 mmol/L (3.3-5.1); Sodium 141 mmol/L (135-145); Triglycerides 108 mg/dL (<150)
== END 2025-03-23 06:52 | disposition home or self-care (01) ==
LOC: HO.LAB 06:51
PROVIDERS: PCP Internal Medicine; Visit Provider Internal Medicine
DX: F41.9 Anxiety disorder, unspecified (principal); I10 Essential (primary) hypertension; E78.5 Hyperlipidemia, unspecified; Z78.0 Asymptomatic menopausal state
CPT/HCPCS: 36415; 80048; 80061; 82306; 84450; 84460

== ENCOUNTER 2025-03-25 09:09 | Outpatient (AMB) | payer BC, OTHER, SELFPAY ==
--- OUTSIDE RECORDS SUMMARY | 2025-03-25 09:27 | XMS_ITS | Encounter Summary ---
Author Organization [facility] Address [address] [place] [phone] Phone Care Team Providers Care Heavy Rail Train Operator Name Role Phone Dalton Rao DO Unavailable Marilynn Lew MD Unavailable [phone] Marilynn Lew MD Primary Care Provider RainerHayder ramsey DO Unavailable Encounter Details Date Type Department Care Team (Late st Contact Info) Description 04/30/2019 Ancillary Orders [facility] Orthopedics & Sports Medicine [address] [place] [address] [id number] Albina Torrez MD [address] [place] [address] Orthopedics & Sports Medicine, [place], [place] [id number] [email or web address] Social History Tobacco Use Types Packs/Day Years [...] on filedocumented in this encounter Care Teams Heavy Rail Train Operator Relationship Specialty Start Date End Date Marilynn Lew MD [address] [facility] [place] [address] PCP - General 09/08/17 Dalton Rao DO [address] [place] [address] Orthopedics & Sports Medicine, [facility] [place] [address] [email or web address] Historical LMR Provider 06/23/17 Marilynn Lew MD [address] [place] [address] [place] [address] Historical LMR Provider 06/23/17 2 Hayder Spear DO [address] [place] [address] [email or web address] Hematology and Oncology 12/07/18 documented as of this encounter Additional Source Comments The information contained in this document represents components of the legal health record. It is not the complete legal health record.[facility]
--- OUTSIDE RECORDS SUMMARY | 2025-03-25 09:27 | XMS_ITS | Patient Health Record ---
Author Organization [facility] Ronn kelsie Holmes Address [address] [facility] [place] [address] Care Team Providers Care Financial Services Internship Name Role Phone Louann CARRILLO, Marilynn Fry Primary Care Provider Un available Roxana Arevalo Unavailable [phone] Allergies Allergen (clinical drug ingredient) Drug/Non Drug [...] Status Risk Notes Problem Acquired hallux valgus (74613004) Hallux valgus (acquired), left foot (M20.12) Active confirmed Vital Signs Blood pressure diastolic 60 mm Hg 02/27/2025 Height 5ft 7 in in 02/27/2025 Blood pressure systolic 128 mm Hg 02/27/2025 Weight 169 lbs lbs 02/27/2025 BMI 26.47 kg/m2 02/27/2025 Encounters Encounter Location Date Provider Diagnosis [facility] [address] 02/27/2025 Roxana Arevalo Pain in right toe(s) M79.674 ; Onychomycosis B35.1 and Pain in left toe(s) M79.[address] [address] 02/28/2025 Roxana Arevalo [address] [address] 03/11/2025 Roxana Arevalo Assessments Encounter Date Diagnosis [...] Provider Name:Roxana pham, 07/01/2025 08:30:00 AM, [address] [place], [address], Insurance Providers Payer Name Payer Address Payer Phone Subscriber Number Group Number Insured Name Patient Relationship to Insured Coverage Start Date Coverage End Date Yvette [employer] Others [address] [place] [address] [id number] Babak Diaz Spouse - patient is [...]
--- OUTSIDE RECORDS SUMMARY | 2025-03-25 09:27 | XMS_ITS | Patient Health Record ---
Author Organization [facility] Address [address] [place] [address] Care Team Providers Care Die Set Up Worker Name Role Phone Louann CARRILLO, Marilynn Primary Care Provider Nilo Eid Unavailable [phone] Vannesa Camarillo Unavailable Unavailable Allergies Allergen (clinical [...] Problem Status W/U Status Risk Notes Problem [id number] Encounter for screening for malignant neoplasm of colon (Z12.11) Active confirmed Problem [id number] History of adenomatous polyp of colon (Z86.010) Active confirmed Problem [id number] Preprocedural examination (Z01.818) Active confirmed Plan Of Treatment Future Test Test Name Order Date COLONOSCOPY 02/13/2020 Insurance Providers Payer Name Payer Address Payer Phone Subscriber Number Group Number Insured Name Patient Relationship to Insured Coverage Start Date Coverage End Date [facility] [address] [place], [place] [id number] [phone] [id number] JAVIER RETANA Self - patient is the insured Medical (General) History Medical History History ICD Code Polycythemia vera with thera peutic phlebotomy q 1 month-sees Dr. Camarillo for this Kidney stone Denies VA,DM,CVA,Lung disease,renal dise ase History of colon polyps--Dr. Wilkinson--had first exam in her 30's for evaluation of diarrhea--found precancerous polyps and has had 4 or 5 other colonoscopies with removal of polyps Mastocytosis--has an Epipen Surgical History Surgery Date(Month/Year) back surgery x 2 tubal ligation cholecystectomy jaw surgery
--- NOTE | 2025-03-25 10:03 | A.OFFPC_ITS ---
Vital Signs 03/25/25 10:05 03/25/25 10:51 Height 5 ft 7 in Weight 176 lb BMI 27.6 BP 152/80 H 130/85 Blood Pressure Location Lt brachial Position Sitting Respiration 16 Pulse 68 Pulse Source Pulse Oximeter Temp 98.2 F Temp Source Oral Pulse Oximetry (%) 97 Oxygen Delivery Method Room Air Intake Visit Reasons: Annual PE Intake Note: Pt is here today for her PE: last mammogram 06/14/24, colonoscopy 12/13/24, papsmear 12/10/20 Allergies Seasonal Allergies Allergy (Severe, Verified 03/25/25 10:09) congestion codeine (Codeine) Allergy (Intermediate, Verified 03/25/25 10:09) nausea/dizziness/vomiting oxycodone (From Tylox) Allergy (Intermediate, Verified 03/25/25 10:09) Nausea and Vomiting, Dizziness terbinafine Adverse Reaction (Severe, Verified 03/25/25 10:54) Nausea and Vomiting varenicline (From Chantix) Adverse Reaction (Intermediate, Verified 03/25/25 10:09) Irritable Medication List - Last Reconciled 03/25/25 by Marilynn Lew MD epinephrine (EpiPen 2-Bud) 0.3 mg (0.3 mL) IM Q4H PRN ibuprofen 200 mg PO Q6H PRN lorazepam 0.5 mg PO BID PRN metoprolol succinate ER 25 mg (1/2 x 50 mg) PO QPM Tobacco use date assessed: 03/25/25 Dental Screening Dental Screen Date: 03/25/25 Did you have a dental visit in the last 12 months?: Yes Did you have a dental problem in the last 6 months where you did not have access to dental care?: No Was dental information given to patient?: Patient has dentist HPI Annual PE HPI Details - The patient is a 59-year-old female h ere today for physical exam. - She has generalized anxiety disorder : having intermittent attacks of anxiety, which she believes contributes to elevated blood pressure. She is currently taking lorazepam and metoprolol, and she sees a mental health therapist two to three times a month, which has been helping. - Hypertension: The patient monitors her blood pressure at home, noting variability with readings of 152/80 mmHg and 128/78 mmHg. She attributes some elevation to anxiety during medical visits. - Onychomycosis: The patient was prescri bed terbinafine for onychomycosis affecting the left big toe but experienced adverse effects, including nausea and dizziness. She plans to try a topical treatment and will follow up with her orthodontic laboratory technician. - Precancerous colon polyp: The patient has a history of a precancerous colon polyp and underwent a colonoscopy in December, which confirmed the presence of another polyp. She is advised to have follow-up colonoscopies every three to five years. - Back and neck pain: The patient report s chronic back pain from a previous fracture 30 years ago and persistent neck pain, which forced her to quit her job and limits her ability to perform certain activities. - continues to smoke cigarettes at least 10 a day, for the last 40 years. No desire to quit at present time [facility] Medical History Onychomycosis of left great toe Essential hypertension Elevated blood pressure reading Intermittent palpitations Acquired deformity of toenail History of adenomatous polyp of colon Postmenopausal Nicotine dependence, cigarettes, uncomplicated Tubular adenoma of colon Headache Diverticulitis Mastocytosis Anxiety Surgical History History of endometrial ablation (~2003) History of laparoscopic cholecystectomy History of lumbar discectomy History of tubal ligation History of colonoscopy Family History Mother Heart disease Father Heart disease Cancer Liver cancer Brother Heart disease Bladder cancer Sister Breast cancer Brother No problems noted. Sister No problems noted. Sister No problems noted. Sister No problems noted. 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 1. Little interest or pleasure in doing things: several days 2. Feeling down, depressed, or hopeless: not at all 3. Trouble falling or staying asleep, or sleeping too much: nearly every day 4. Feeling tired or having little energy: several days 5. Poor appetite or overeating: several days 6. Feeling bad about yourself - or that you are a failure or have let yourself or your family down: not at all 7. Trouble concentrating on things, such as reading the newspaper or watching television: several days 8. Moving or speaking so slowly that other people could have noticed. Or the opposite - being so fidgety or restless that you have been moving around a lot more than usual: not at all 9. Thoughts that you would be better off or of hurting yourself in some way: not at all Total score: 7 Depression Screening Interpretation: Negative Depression Screening Done: Yes 59211 - PHQ-9 Billing: Yes Source: Developed by Drs. Nilo García, Briana Mcdonald, Dayron Ochoa and colleagues, with an educational kerri from [employer]. Thrive Questionnaire Date Thrive assessed: 10/01/24 I am a: Patient What is your living situation today?: I choose not to answer this question Within the past 12 months, did the food you bought not last and you didn't have the money to get more?: Never true Within the past 12 months, did you worry whether your food would run out before you got money to buy more?: Never true Do you have trouble paying for medicines?: No Do you have trouble getting transportation to medical appointments?: No Do you have trouble paying your heating and electricity bill?: No Do you have trouble taking care of your child, family member or friend?: No Do you have trouble with day-to-day activities such as bathing, preparing meals, shopping, managing finances, etc.?: I choose not to answer this question Are you currently unemployed and looking for a job?: I choose not to answer this question Are you interested in more education?: I choose not to answer this question Please select the resources that you would like help with: None Currently or been in a relationship where the following occur: No concerns reported THRIVE Score: 0 DON-7 AMB Questionnaire DON-7 Date DON - 7 assessed: 03/25/25 Feeling nervous, anxious, or on edge: 1 = Several days Not being able to stop or control worryin = Several days Worrying too much about different things: 1 = Several days Trouble relaxin = Several days Being so restless that it is hard to sit still: 1 = Several days Becoming easily annoyed or irritable: 1 = Several days Feeling afraid as if something awful might happen: 1 = Several days Total DON-7 score (0-4 normal; 5-9 mild; 10-14 moderate; 15-21 severe): 7 Source: Developed by Drs. Nilo García, Briana Mcdonald, Dayron Ochoa and colleagues, with an educational kerri from [employer]. DON-7 Assessment Billing DON-7 Assessment Tool: DON-7 Assessment 82577 Review of Systems Const Denies fatigue, Denies fever(s) and Reports weight gain Eyes Details: Wears reading glasses, overdue for eye exam ENT Details: Sees dentist every 6 months for dental cleaning Reports Normal hearing present and Denies dizziness Card Denies chest pain, Denies leg edema, Denies lightheadedness, Denies palpitations, Denies dyspnea on exertion, Denies orthopnea and Denies other Resp Denies cough and Denies dyspnea on exertion GI Denies hematochezia and Denies change in stool character Reports no additional complaints Musc Reports as per HPI, Denies abnormal gait, Denies numbness and Denies tingling Skin/Breast Denies breast pain and Denies breast mass Neuro Reports Normal hearing present, Denies Abnormal speech present, Denies abnormal gait, Denies dizziness, Denies numbness, Denies Sensory deficit (Neuro) and Denies tingling Psych Reports no additional complaints Endo Denies fatigue and Denies palpitations Physical exam (Primary Care) Vital Signs: Last Vital Signs Temp 98.2 F 03/25/25 10:05 Pulse 68 03/25/25 10:05 Resp 16 03/25/25 10:05 BP 130/85 03/25/25 10:51 Pulse Ox 97 03/25/25 10:05 Oxygen Delivery Method Room Air 03/25/25 10:05 BMI result Body Mass Index 27.6 Tobacco/Smoking Status: Tobacco use Status Tobacco use date assessed 03/25/25 03/25/25 10:11 Patient Tobacco Use Status Current everyday Tobacco 03/25/25 10:08 Tobacco use type Cigarette 03/25/25 10:08 e-Cigarette/Vaping Use Never Used 03/25/25 10:08 PHQ-9: PHQ-9 Score PHQ-9: Total score 7 03/25/25 10:56 Depression Screening Interpretation: Negative Thrive Assessment: Date of Thrive Assessment Date Thrive assessed 10/01/24 03/25/25 10:08 Currently or been in a relationship where the following occur: No concerns reported Const Nutritional Appearance: average body habitus Orientation/consciousness: patient oriented x3 HENMT Mouth: Normal oral and palatal mucosa present and moist mucous membranes Eyes General: appearance normal, both eyes and all related structures Neck Other: Limited range of motion of cervical spine specially on backward extension and lateral extension more towards the left side Neck: Yes no lymphadenopathy and Yes no meningeal signs Thyroid: Thyroid normal (Nonpalpable) Chest Chest palpation & inspection: normal inspection of the chest Breast/axilla palpation: normal palpation of the breasts Resp Effort & Inspection: normal respiratory effort and able to speak in complete sentences Auscultation: clear to auscultation bilaterally Cardio Rate: regular rate Rhythm: regular rhythm Heart sounds: S1 normal heart sound present and S2 normal heart sound present GI Inspection: Yes normal to inspection Palpation (GI): Soft to palpation Back/Spine/Pelvis Cervical Spine: cervical muscular tenderness, pain with cervical ROM and cervical ROM abnormal Skin General skin exam: no rashes or lesions noted Neuro General: patient oriented x3, gait normal, Normal light touch and pain sensation, no meningeal signs and no focal motor deficits Cranial nerves: Yes Normal hearing present Cognition (Neuro): normal cognition Speech: No Abnormal speech present Sensory Exam: No Sensory deficit (Neuro) Extrem Other: Decreased range of motion in both shoulder joints due to pain and stiffness General: Yes no joint enlargement, Yes no pedal edema and Yes normal gait Psych Appearance: grossly normal and well kempt Mental Status: mental status grossly normal Speech and movement: Normal speech and movement present Affect: normal affect Results Reviewed Results Reviewed: Name: Halket,Amanda R Age/Sex: 59/F : 1965 Unit#: [id number] Attend Dr: Marilynn Lew MD Re03/23/25 Status: DEP REF Location: .LAB Disch: SPEC : [id number] LYNETTE: 03/23/25 STATUS: COMP REQ : [id number] RECD: 03/23/[address]: Marilynn Lew MD COMP: 03/23/25 ENTERED: 03/23/[address]: ORDERED: Met Prof Fast, AST, ALT, Lipid Panel, Vitamin D 25-OH Test Result Flag Reference Sodium 141 135-145 mmol/L Potassium 4.1 3.3-5.1 mmol/L CL 108 96-108 mmol/L CO2 25 22-29 mmol/L Gap 12 12-20 BUN 17 H 9-16 mg/dL Creat 0.73 0.5-1.4 mg/dL eGFR > 60 Chronic Kidney Disease: Estimated GFR < 60 mL/min/1.73m2 Severe Kidney Disease: Estimated GFR < 15 mL/min/1.73m2 FBS 100 H 60-99 mg/dL A fasting glucose from 100-125 mg/dl is considered impaired (pre-diabetes). CA 9.3 # 8.4-10.2 mg/dL AST (GOT) 16 5-31 U/L ALT (GPT) 14 0-31 U/L Triglyceride 108 <150 mg/dL Desirable Triglyceride: less than 150 mg/dL Borderline High Triglyceride 150-199 mg/dL High Triglyceride: 200-499 mg/dL Very High Triglyceride: greater than or equal to 5OO mg/dL Cholesterol 209 H <200 mg/dL Desirable Cholesterol: less than 200 mg/dL Borderline High Cholesterol: 200-239 mg/dL High Cholesterol: greater than 239 mg/dL LDL Calculated 139 H <100 mg/dL Desirable LDL: less than 100 mg/dL Near Optimal/Above Optimal LDL: 110-129 mg/dL Borderline High LDL: 130-159 mg/dL High LDL: 160-189 mg/dL Very High LDL: greater than or equal to 190 mg/dL HDL 49 >40 mg/dL Desirable HDL: greater than 40 mg/dL Note: This HDL assay may give artificially low results in patients with liver disease. Vitamin D 25-OH 46.2 >30 ng/mL Health Based Reference Values* < 20 ng/mL Deficient 20-30 ng/mL Insufficient > 30 ng/mL Sufficient Coding Level of Care Code Est Pt Prev Care 40-64y(09159) Diagnoses Annual visit for general adult medical examination with abnormal findings Z00.01 Essential hypertension I10 Hyperlipidemia E78.5 Radiculopathy, cervical M54.12 Onychomycosis of left great toe B35.1 Nicotine dependence, cigarettes, uncomplicated F17.210 Anxiety F41.9 Additional Codes DON-7 Assessment Billing - DON-7 Assessment Tool: DON-7 Assessment 21847 ([id number]) PHQ-9 - 34370 - PHQ-9 Billing: Yes ([id number]) Assessment & Plan Assessment & Plan (1) Annual visit for general adult medical examination with abnormal findings: Code(s): Z00.01 - Encounter for general adult medical examination with abnormal findings Plan: Reviewed recent fasting lab results with patient.. Recommended dental visit every 6 months and regular eye exams, at least every 2 years. Take adequate calcium in diet and vitamin-D 3 at 2000 IU per cap once a day, in addition to weight-bearing exercises to help maintain good muscle tone and weight control. Instructed to do self-breast exam, and continue to get yearly mammogram, s currently up-to-date goes to [facility] for routine Pap and pelvic exam, normal Pap was done in 2020, due again next year. Up-to-date with her screening colonoscopy done 12/13/[address] Benito with removal of hyperplastic and tubular adenoma polyp. Repeat again due in 2029 (2) Essential hypertension: Code(s): I10 - Essential (primary) hypertension Category: Medical Plan: Will continue on metoprolol succinate ER 25 mg 1 tablet at night. Reinforced importance of following low-salt diet (3) Hyperlipidemia: Code(s): E78.5 - Hyperlipidemia, unspecified Category: Medical Plan: Reinforced importance of following low-cholesterol diet, recent fasting labs showed LDL cholesterol at 139 mg/dL. (4) Radiculopathy, cervical: Comment: Currently under workman's comp, sees Dr. Golden referred to [facility] neurosurgery Code(s): M54.12 - Radiculopathy, cervical region Category: Medical Plan: Taking ibuprofen as needed (5) Onychomycosis of left great toe: Comment: Seen by Dr. Arevalo, unable to tolerate terbinafine tab Code(s): B35.1 - Tinea unguium Category: Medical Plan: Currently followed by Podiatry, will discuss other alternative treatment options other than terbinafine which she can not tolerate (6) Nicotine dependence, cigarettes, uncomplicated: Comment: (current smoker, onset 17yo, 1/2-3/4ppd x 40yrs, 25pyh) Code(s): F17.210 - Nicotine dependence, cigarettes, uncomplicated Category: Medical Plan: Referred for lung cancer screening (7) Anxiety: Code(s): F41.9 - Anxiety disorder, unspecified Category: Medical Plan: Takes lorazepam as needed for acute anxiety attacks
[2025-03-25 10:05] VITALS: BP 152/80; PULSE 68; RESP 16; TEMP 36.8; O2SAT 97; BMI 27.6
[2025-03-25 10:51] VITALS: BP 130/85
== END 2025-03-25 11:02 | disposition home or self-care (01) ==
PROVIDERS: PCP Internal Medicine; Visit Provider Internal Medicine
DX: Z00.01 Encounter for general adult medical examination with abnormal findings (principal); I10 Essential (primary) hypertension; E78.5 Hyperlipidemia, unspecified; M54.12 Radiculopathy, cervical region; B35.1 Tinea unguium; F17.210 Nicotine dependence, cigarettes, uncomplicated; F41.9 Anxiety disorder, unspecified

== ENCOUNTER → 2025-03-25 09:09 | Outpatient (BNVA) | payer OTHER, BC, SELFPAY | PROVIDERS: PCP Internal Medicine; Visit Provider Internal Medicine | DX: Z00.01 Encounter for general adult medical examination with abnormal findings (principal); F41.1 Generalized anxiety disorder; I10 Essential (primary) hypertension; E78.5 Hyperlipidemia, unspecified; M54.12 Radiculopathy, cervical region; B35.1 Tinea unguium; F17.210 Nicotine dependence, cigarettes, uncomplicated | CPT/HCPCS: 96127 ==

== ENCOUNTER 2025-04-01 07:06 | Outpatient (REF) | payer BC, OTHER, SELFPAY ==
--- NOTE | ~2025-04-01 | CT_ITS ---
EXAMINATION: CT LUNG SCREENING HISTORY: F17.210 - Nicotine dependence, cigarettes, uncomplicated TECHNIQUE: Low dose axial images were obtained from the sternal notch to upper abdomen without IV contrast per standard departmental protocol. Sagittal and coronal reformatted images were also obtained and reviewed. One or more of the following techniques was used for dose reduction: Automated exposure control, adjustment of the mA and/or kV according to patient size, use of iterative reconstruction technique. DLP: 48 mGy-cm COMPARISON: Comparison is made with the prior examination dated 03/21/2024. FINDINGS: Lung nodules: Again seen is a 3 mm subpleural nodule of the lateral aspect of the right lung base (series 4, image 99). There is a tiny 2 mm density along the dependent portion of the right mainstem bronchus (series 4, image 54) which could represent secretions or a tiny nodule. Emphysema: none Coronary Calcification: mild Aortic Arch Calcification: mild Potentially Significant Incidentals : none Additional Chest Findings: There is no pleural or pericardial effusion. No mediastinal or axillary lymphadenopathy is identified. Visualized upper abdomen: The visualized portions of the liver, spleen, and adrenals have an unremarkable unenhanced appearance. CT/CT lung screening IMPRESSION: Stable 3 mm nodule at the right lung base. 2 mm density along the dependent portion of the right mainstem bronchus could represent secretions or a tiny nodule. Six-month follow-up low-dose CT is recommended. LUNG-RADS ASSESSMENT: Lung-RADS 3: Probably Benign MANAGEMENT: 6 month LDCT Category S: N/A Electronically signed by: Nilo Vick MD 04/01/2025 09:01 AM EDT
--- OUTSIDE RECORDS SUMMARY | 2025-04-01 07:09 | XMS_ITS | Patient Health Record ---
Author Organization [facility] Address [address] [place] [address] Care Team Providers Care Substance Abuse Technician Name Role Phone Louann CARRILLO, Marilynn Primary Care Provider Nilo Eid Unavailable [phone] Vannesa Camarillo Unavailable Unavailable Allergies Allergen (clinical [...] Problem Status W/U Status Risk Notes Problem [id number] Encounter for screening for malignant neoplasm of colon (Z12.11) Active confirmed Problem [id number] History of adenomatous polyp of colon (Z86.010) Active confirmed Problem [id number] Preprocedural examination (Z01.818) Active confirmed Plan Of Treatment Future Test Test Name Order Date COLONOSCOPY 02/13/2020 Insurance Providers Payer Name Payer Address Payer Phone Subscriber Number Group Number Insured Name Patient Relationship to Insured Coverage Start Date Coverage End Date [facility] [address] [place], [place] [id number] [phone] [id number] JAVIER RETANA Self - patient is the insured Medical (General) History Medical History History ICD Code Polycythemia vera with thera peutic phlebotomy q 1 month-sees Dr. Camarillo for this Kidney stone Denies [place],DM,CVA,Lung disease,renal dise ase History of colon polyps--Dr. Wilkinson--had first exam in her 30's for evaluation of diarrhea--found precancerous polyps and has had 4 or 5 other colonoscopies with removal of polyps Mastocytosis--has an Epipen Surgical History Surgery Date(Month/Year) back surgery x 2 tubal ligation cholecystectomy jaw surgery
--- OUTSIDE RECORDS SUMMARY | 2025-04-01 07:09 | XMS_ITS | Patient Health Record ---
Author Organization [facility] [place] Address [address] [facility] [address] [facility] [place] [address] Care Team Providers Care Strategic Manager Name Role Phone Louann CARRILLO, Marilynn Fry Primary Care Provider Un available Roxana Arevalo Unavailable [phone] Allergies Allergen (clinical drug ingredient) Drug/Non Drug [...] Status Risk Notes Problem Acquired hallux valgus (69939609) Hallux valgus (acquired), left foot (M20.12) Active confirmed Vital Signs Blood pressure diastolic 60 mm Hg 02/27/2025 Height 5ft 7 in in 02/27/2025 Blood pressure systolic 128 mm Hg 02/27/2025 Weight 169 lbs lbs 02/27/2025 BMI 26.47 kg/m2 02/27/2025 Encounters Encounter Location Date Provider Diagnosis [facility] [address] 02/27/2025 Roxana Arevalo Pain in right toe(s) M79.674 ; Onychomycosis B35.1 and Pain in left toe(s) M79.[address] [address] 02/28/2025 Roxana Arevalo [address] [address] 03/11/2025 Roxana Arevalo Assessments Encounter Date Diagnosis [...] Provider Name:Roxana pham, 07/01/2025 08:30:00 AM, [address] [place], [address], Insurance Providers Payer Name Payer Address Payer Phone Subscriber Number Group Number Insured Name Patient Relationship to Insured Coverage Start Date Coverage End Date [employer]vette [employer] [address] [place] [address] [id number] Babak Diaz Spouse - patient is [...]
== END 2025-04-01 07:07 | disposition home or self-care (01) ==
LOC: HO.CT 07:06
PROVIDERS: PCP Internal Medicine; Visit Provider Physician Assistant Medical
DX: Z12.2 Encounter for screening for malignant neoplasm of respiratory organs (principal); F17.210 Nicotine dependence, cigarettes, uncomplicated
CPT/HCPCS: 71271

== ENCOUNTER → 2025-04-01 07:06 | Outpatient (BNV) | payer BC, OTHER, SELFPAY | PROVIDERS: PCP Internal Medicine; Visit Provider Radiology Diagnostic Radiology | DX: F17.210 Nicotine dependence, cigarettes, uncomplicated (principal) | CPT/HCPCS: 71271 ==

== ENCOUNTER 2025-07-01 07:21 | Outpatient (REF) | payer BC, SELFPAY ==
--- OUTSIDE RECORDS SUMMARY | 2025-07-01 07:25 | XMS_ITS | Encounter Summary ---
Author Organization [facility] Address [address] [place] [address] Phone Care Team Providers Care Html Web Developer Name Role Phone Dalton Rao DO Unavailable Marilynn Lew MD Unavailable Marilynn Lew MD Primary Care Provider RainerHayder DO Unavailable [phone] Encounter Details Date Type Department Care Team (Late st Contact Info) Description 11/17/2018 Procedure Pass [facility] Cardiovascular [facility] Interventional Radiology [address] [place] [address] Social History Tobacco Use Types Packs/Day Years [...] on filedocumented in this encounter Care Teams Html Web Developer Relationship Specialty Start Date End Date Marilynn Lew MD [address] [place] [address] PCP - General 09/08/17 Dalton Rao DO [address] [place] [address] Orthopedics & Sports Medicine, [place] [address] Historical LMR Provider 06/23/17 Marilynn Lew MD [facility] [place] [address] Historical LMR Provider 06/23/17 2 Hayder Spear DO [address] [place] [address] [email or web address] Hematology and Oncology 12/07/18 documented as of this encounter Additional Source Comments The information contained in this document represents components of the legal health record. It is not the complete legal health record.[facility]
--- OUTSIDE RECORDS SUMMARY | 2025-07-01 07:25 | XMS_ITS | Encounter Summary ---
Author Organization [facility] Address [address] [place] [address] Phone Care Team Providers Care Canine Service Teacher Name Role Phone Dalton Rao DO Unavailable [phone] Marilynn Lew MD Unavailable Marilynn Lew MD Primary Care Provider Hayder Spear DO Unavailable Encounter Details Date Type Department Care Team (Late st Contact Info) Description 02/07/2018 Ancillary Orders [address] [address] Dalton Rao DO [address] [place] [address] Orthopedics & Sports Medicine, [place] [address] [email or web address] Left hip pain Social History Tobacco Use Types Packs/Day Years [...] as of this encounter Plan of Treatment Pending Results Name Type Priority Associated Diagnoses Date /Time FL Guidance Needle Placement Non-Spine Imaging Routine Left hip pain 02/07/2018 3:09 PM EDT Scheduled Orders Name Type Priority Associated Diagnoses Orde r Schedule FL Guidance Needle Placement Non-Spine Imaging Routine Left hip pain Expected: 02/07/2018, Expires: 02/07/2019 documented as of this encounter Visit Diagnoses Diagnosis Left hip pain Pain in joint, pelvic region and thigh documented in this encounter Care Teams Canine Service Teacher Relationship Specialty Start Date End Date Marilynn Lew MD [address] [address] PCP - General 09/08/17 Dalton Rao DO [address] [place] [address] Orthopedics & Sports Medicine, [place] [address] [email or web address] Historical LMR Provider 06/23/17 Marilynn Lew MD [address] [place] [address] Historical LMR Provider 06/23/17 2 Hayder Spear DO [address] [place] [address] [email or web address] Hematology and Oncology 12/07/18 documented as of this encounter Additional Source Comments The information contained in this document represents components of the legal health record. It is not the complete legal health record.[facility]
--- OUTSIDE RECORDS SUMMARY | 2025-07-01 07:25 | XMS_ITS | Patient Health Record ---
Author Organization [facility] Ronn kelsie Iselin Address [address] [facility] [place] [address] Care Team Providers Care Direct Of Real Estate Name Role Phone Louann CARRILLO, Marilynn Fry Primary Care Provider Un available Roxana Arevalo Unavailable [phone] Allergies Allergen (clinical drug ingredient) Drug/Non Drug [...] Status Risk Notes Problem Acquired hallux valgus (38567652) Hallux valgus (acquired), left foot (M20.12) Active confirmed Vital Signs Blood pressure diastolic 60 mm Hg 02/27/2025 Height 5ft 7 in in 02/27/2025 Blood pressure systolic 128 mm Hg 02/27/2025 Weight 169 lbs lbs 02/27/2025 BMI 26.47 kg/m2 02/27/2025 Encounters Encounter Location Date Provider Diagnosis [facility] [address] 02/27/2025 Roxana Arevalo Pain in right toe(s) M79.674 ; Onychomycosis B35.1 and Pain in left toe(s) M79.[address] [address] 02/28/2025 Roxana Arevalo [address] [address] 03/11/2025 Roxana Arevalo Assessments Encounter Date Diagnosis [...] Provider Name:Roxana pham, 07/01/2025 08:30:00 AM, [address] [place], [address], Insurance Providers Payer Name Payer Address Payer Phone Subscriber Number Group Number Insured Name Patient Relationship to Insured Coverage Start Date Coverage End Date Yvette All Others [address] [place] [address] [id number] Babak Diaz Spouse - patient is [...]
--- OUTSIDE RECORDS SUMMARY | 2025-07-01 07:25 | XMS_ITS | Clinical Summary ---
Author Organization [facility] Address [address] [place] [address] Phone Care Team Providers Care Chip Person Name Role Phone Dalton Rao DO Unavailable Marilynn Lew MD Primary Care Provider Hayder Spear DO Unavailable [phone] Allergies Active Allergy Reactions Criticality Noted Date Comments House Dust 12/07/2018 Mold Extracts 12/07/2018 Other 02/07/2018 Pain medication- intolerance Pollen Extracts 12/07/2018 Medications ibuprofen (ADVIL,MOTRIN) 400 MG tablet 1 tablet Orally Three times a day Active LORazepam (ATIVAN) 0.5 MG tablet TAKE 1 TABLET BY MOUTH 1/2 HOUR BEFORE TRAVEL NEEDED 0 11/14/2017 Active cyanocobalamin, vitamin B-12, (VITAMIN B12 ORAL) Take by mouth. Active cetirizine (ZYRTEC) 10 MG tablet Take 10 mg by mouth daily. Active EPINEPHrine 0.3 mg/0.3 mL auto-injector Inject 0.3 mg into the muscle as needed for anaphylaxis . Active triamcinolone (NASACORT AQ) 55 mcg/actuation nasal inhaler 2 sprays by Nasal route daily. Active Active Problems Patient Care Coordination No te Formatting of this note migh t be different from the original. Height taken without shoes eo=839.7cm Problem Noted Date Diagnosed Date Bilateral hip pain 02/02/2018 Family History Medical History Relation Comments Cancer Unspecified Heart disease Unspecified Infl. arthritis Unspecified Relation Status Comments Unspecified Social History Tobacco Use Types Packs/Day Years Used Date Smoking Tobacco: Every Day Cigarettes Smokeless Tobacco: Never Alcohol Use Standard Drinks/Week Comments No 0 (1 standard drink = 0.6 oz pur e alcohol) Education Answer Date Recorded Are you interested in more education? Not on mauricio e 12/31/2022 Are you concerned about learning? Not on file 12/31/2022 No 12/31/2022 No 12/31/2022 Digital Access Answer Date Recorded No 01/29/2023 No 01/29/2023 Reliable internet access at home? Not on file 01/29/2023 Device with a working camera? Not on file Comments Unknown Sex and Gender Information Value Date Recorded Sex Assigned at Not on file Legal Sex Female 10:32 PM EDT Gender Identity Not on file Sexual Orientation Not on file Last Filed Vital Signs Vital Sign Reading Time Taken Comments Blood Pressure 135/90 12/29/2018 1:14 PM EDT Pulse 72 12/29/2018 1:14 PM EDT Temperature 36.7 C (98.1 F) 12/29/2018 1:14 PM EDT Respiratory Rate - - Oxygen Saturation 99% 12/29/2018 1:14 PM EDT Inhaled Oxygen Concentration - - Weight 71.2 kg (157 lb) 12/29/2018 1:14 PM EDT Height 172.7 cm (5' 7.99 ) 12/29/2018 1:14 PM ED T Body Mass Index 23.88 12/29/2018 1:14 PM EDT Plan of Treatment Health Maintenance Due Date Last Done Comments Adult Td,Tdap Booster 1966 LIPID PANEL 1966 DEPRESSION SCREENING 1978 SMOKING Hx and SMOKELESS TOBACCO SCREENING 1979 HEPATITIS C SCREENING 1984 HIV ONE-TIME SCREENING (18-6 5 YEARS) 1984 PNEUMOCOCCAL VACCINES (50+ years) (1 of 2 - PCV) 1985 PAP SMEAR 1987 MAMMOGRAM 2006 COLOGUARD 2011 COLONOSCOPY 2011 COLORECTAL CANCER SCREENING 2011 FIT TEST 2011 FOBT 2011 SIGMOIDOSCOPY 2011 VIRTUAL COLONOSCOPY 2011 ZOSTER VACCINES (1 of 2) 2016 INFLUENZA VACCINE (#1) 2025 0, 08/21/2016 COVID-19 VACCINE (2 - 2024-2 6 season) 2025 11/20/2020 RSV VACCINE (1 - 1-dose 75+ series) 2041 HEPATITIS A VACCINES Aged Out No long er eligible based on patient's age to complete this topic HIB VACCINES Aged Out No longer eligi ble based on patient's age to complete this topic MENINGOCOCCAL VACCINES (ACWY) Aged Out No longer eligible based on patient's age to complete this topic MENINGOCOCCAL VACCINES (B) Aged Out N o longer eligible based on patient's age to complete this topic Medical Devices Not on file [place] [address] [place] [address] [place] [address] [place] [address] [address] [place] [address] [address] [place] [address] [address] [place] [address] [address] [place] [address] [place] [address] [place] [address] [place] [address] [place] [address] PPO EPO Care Teams Chip Person Relationship Specialty Start Date End Date Marilynn Lew MD [address] [facility] [place] [address] PCP - General 09/08/17 Dalton Rao DO [address] [place] [address] Orthopedics & Sports Medicine, [facility] [place] [address] [email or web address] Historical LMR Provider 06/23/17 Hayder Spear DO [address] [place] [address] [email or web address] Hematology and Oncology 12/07/18 Additional Source Comments The information contained in this document represents components of the legal health record. It is not the complete legal health record.[facility]
--- OUTSIDE RECORDS SUMMARY | 2025-07-01 07:25 | XMS_ITS | Encounter Summary ---
Author Organization [facility] Address [address] [place] [address] Phone Care Team Providers Care Land Surveying Manager Name Role Phone Dalton Rao DO Unavailable [phone] Marilynn Lew MD Unavailable Marilynn Lew MD Primary Care Provider Hayder Spear DO Unavailable Encounter Details Date Type Department Care Team (Late st Contact Info) Description 04/30/2019 Ancillary Orders [address] [address] Albina Torrez MD [address] [place] [address] Orthopedics & Sports Medicine, [place] [address] [email or web address] Left hip pain Social History Tobacco Use [...] Placement Non-Spine Imaging Routine Left hip pain 05/01/2019 8:12 AM EDT Scheduled Orders Name Type Priority Associated Diagnoses Orde r Schedule FL Guidance Needle Placement Non-Spine Imaging Routine Left hip pain 1 Occurrences starting 04/30/2019 until 07/31/2019 documented as of this encounter Visit Diagnoses Diagnosis Left hip pain Pain in joint, pelvic region and thigh documented in this encounter Care Teams Land Surveying Manager Relationship Specialty Start Date End Date Marilynn Lew MD [address] [facility] [place] [address] PCP - General 09/08/17 Dalton Rao DO [address] [place] [address] Orthopedics & Sports Medicine, [place] [address] [email or web address] Historical LMR Provider 06/23/17 Marilynn Lew MD [address] [facility] [address] Historical LMR Provider 06/23/17 2 Hayder Spear DO [address] [place] [address] [email or web address] Hematology and Oncology 12/07/18 documented as of this encounter Additional Source Comments The information contained in this document represents components of the legal health record. It is not the complete legal health record.[facility]
--- OUTSIDE RECORDS SUMMARY | 2025-07-01 07:25 | XMS_ITS | Encounter Summary ---
Author Organization [facility] Address [address] [place] [address] Phone Care Team Providers Care Product Director Name Role Phone Dalton Rao DO Unavailable [phone] Marilynn Lew MD Unavailable [phone] Marilynn Lew MD Primary Care Provider RainerHayder ramsey DO Unavailable Encounter Details Date Type Department Care Team (Late st Contact Info) Description 04/30/2019 Ancillary Orders [facility] Orthopedics & Sports Medicine [address] [place] [address] [id number] Albina Torrez MD [address] [place] [address] Orthopedics & Sports Medicine, [place], [place] [phone] [email or web address] Social History Tobacco Use Types Packs/Day Years [...] on filedocumented in this encounter Care Teams Product Director Relationship Specialty Start Date End Date Marilynn Lew MD [address] [place] [address] PCP - General 09/08/17 Dalton Rao DO [address] [place] [address] Orthopedics & Sports Medicine, [facility] [place] [address] [email or web address] Historical LMR Provider 06/23/17 Marilynn Lew MD [address] [place] [address] [place] [address] Historical LMR Provider 06/23/17 2 Hayder Spear DO [address] [place] [address] [email or web address] Hematology and Oncology 12/07/18 documented as of this encounter Additional Source Comments The information contained in this document represents components of the legal health record. It is not the complete legal health record.[facility]
--- OUTSIDE RECORDS SUMMARY | 2025-07-01 07:25 | XMS_ITS | Patient Health Record ---
Author Organization [facility] Address [address] [place] [address] Care Team Providers Care Slusher Operator Name Role Phone Louann CARRILLO, Marilynn Primary Care Provider Nilo Eid Unavailable [phone] Vannesa Camarillo Unavailable Unavailable Allergies Allergen (clinical [...] spray in each nostril Nasally Once a day; Duration: 30 day(s) Active LORazepam 0.5 MG (Schedule IV Drug) T YANELI 1 TABLET BY MOUTH 1/2 HR BEFORE TRAVEL NEEDED Oral; Duration: 5 Not-Taking Aspirin 81 81 MG 1 tablet Orally Once a day; Duration: 30 day(s) Active Diclofenac Sodium 1 % APPLY 2 GMTO AFECT ED AREA DIRECTED 2 TIMES DAILY NEEDED FOR PAIN TRANSDERMAL Transdermal; Duration: 25 Not-Taking Immunizations Vaccine Route Administration Date [...] Problem Status W/U Status Risk Notes Problem Screening for malignant neoplasm of colon (810494459) Encounter for screening for malignant neoplasm of colon (Z12.11) Active confirmed Problem History of adenomatous polyp of colon (571396997) History of adenomatous polyp of colon (Z86.010) Active confirmed Problem Preprocedural examination (874964748055064) Preprocedural examination (Z01.818) Active confirmed Plan Of Treatment Future Test Test Name Order Date COLONOSCOPY 02/13/2020 Insurance Providers Payer Name Payer Address Payer Phone Subscriber Number Group Number Insured Name Patient Relationship to Insured Coverage Start Date Coverage End Date [facility] [address] [place], [place] [id number] [phone] [id number] JAVIER RETANA Self - patient is the insured Medical (General) History Medical History History ICD Code Polycythemia vera with thera peutic phlebotomy q 1 month-sees Dr. Camarillo for this Kidney stone Denies NM,DM,CVA,Lung disease,renal dise ase History of colon polyps--Dr. Wilkinson--had first exam in her 30's for evaluation of diarrhea--found precancerous polyps and has had 4 or 5 other colonoscopies with removal of polyps Mastocytosis--has an Epipen Surgical History Surgery Date(Month/Year) back surgery x 2 tubal ligation cholecystectomy jaw surgery
--- OUTSIDE RECORDS SUMMARY | 2025-07-01 07:25 | XMS_ITS | Encounter Summary ---
Author Organization [facility] Address [address] [place] [address] Phone Care Team Providers Care Enamel Shader Name Role Phone Dalton Rao DO Unavailable [phone] Marilynn Lew MD Unavailable [phone] Marilynn Lew MD Primary Care Provider Hayder Spear DO Unavailable Encounter Details Date Type Department Care Team (Late st Contact Info) Description 02/07/2018 Ancillary Orders [facility] Orthopedics & Sports Medicine [address] [place] [address] Dalton Rao DO [address] [place] [address] Orthopedics & Sports Medicine, [place] [address] [email or web address] Social History Tobacco Use [...] on filedocumented in this encounter Care Teams Enamel Shader Relationship Specialty Start Date End Date Marilynn Lew MD [address] [facility] [place] [address] PCP - General 09/08/17 Dalton Rao DO [address] [place] [address] Orthopedics [facility] Sports [facility] [place] [address] [email or web address] Historical LMR Provider 06/23/17 Marilynn Lew MD [address] [place] [address] [place] [address] Historical LMR Provider 06/23/17 2 Hayder Spear DO [address] [place] [address] [email or web address] Hematology and Oncology 12/07/18 documented as of this encounter Additional Source Comments The information contained in this document represents components of the legal health record. It is not the complete legal health record.[facility]
== END 2025-07-01 07:22 | disposition home or self-care (01) ==
LOC: HO.MAMMO 07:21
PROVIDERS: PCP Internal Medicine; Visit Provider Internal Medicine
DX: Z12.31 Encounter for screening mammogram for malignant neoplasm of breast (principal)
CPT/HCPCS: 77063; 77067

== ENCOUNTER → 2025-07-01 07:30 | Outpatient (BNV) | payer BC, SELFPAY | PROVIDERS: PCP Internal Medicine; Visit Provider Internal Medicine | DX: Z12.31 Encounter for screening mammogram for malignant neoplasm of breast (principal) | CPT/HCPCS: 77063; 77067 ==

== ENCOUNTER 2025-08-21 08:36 | Outpatient (REF) | payer BC, SELFPAY ==
--- NOTE | ~2025-08-21 | CT_ITS ---
EXAMINATION: CT LOW-DOSE SCREENING CHEST WITHOUT CONTRAST CLINICAL INFORMATION: Follow-up for 2 mm nodular density along the posterior margin of the right mainstem bronchus seen on prior exam. 59-year-old female, 40 pack years, current smoker, lung cancer screening follow-up. COMPARISON: 04/01/2025 LDS. 03/21/2024 LDS. TECHNIQUE: Multidetector volumetric CT imaging of the chest is performed on a Siemens SOMATOM Definition scanner without contrast using low dose technique. Additional 2D coronal and sagittal reformatted images and axial 3D maximum intensity projection (MIP) images are generated on the CT workstation. This CT examination was performed using dose optimization techniques as appropriate, variously including the following: *Automated exposure control *Adjustment of mA and/or kV according to patient size (this includes techniques or standardized protocols for targeted exams where dose is matched to indication/reason for exam; i.e. extremities or head) *Use of iterative reconstruction technique FINDINGS: PULMONARY NODULES: 4 mm subpleural nodule lateral aspect of the lateral right lung base is unchanged (series 4, image 91). The previously seen 2 mm density in the right main stem bronchus is no longer evident and was consistent with mucus. 3 mm groundglass nodule left upper lobe centrally (series 4, image 51), unchanged. There is no new or enlarging pulmonary nodule present. LUNGS: Mild pulmonary centrilobular emphysema is again noted. Lungs are otherwise clear. Small airways appear normal. No effusion or pneumothorax. MEDIASTINUM: Partially imaged thyroid is normal. No abnormal lymphadenopathy or mass. Aorta is mildly calcified, without evidence of aneurysm. Pulmonary trunk is normal in size. Heart size is normal. There is no pericardial effusion. No esophageal abnormality. CORONARY ARTERY CALCIFICATION: Minimal. CHEST WALL/AXILLA: No abnormal lymph nodes or masses. UPPER ABDOMEN: Imaged upper abdominal contents appear normal allowing for low dose, noncontrast technique. There has been a cholecystectomy. OSSEOUS STRUCTURES: No suspicious lytic or blastic bone lesion. CT/CT lung screen follow up IMPRESSION: 1. Previously questioned 2 mm nodule in the right mainstem bronchus is no longer evident. This was likely mucus. 2. Otherwise stable pulmonary micronodules, without new or enlarging nodule. 3. Mild pulmonary emphysema. No active lung disease. ASSESSMENT: 1. Lung-RADS Category 2: Benign appearance or behavior of nodules. 2. Lung-RADS Category S: None. RECOMMENDATION: Continued routine annual low-dose CT lung screening in 1 year is recommended. An order for CT CHEST LOW DOSE CANCER SCREENING ([id number]) can be placed. Electronically signed by: Reji Feliciano MD 08/21/2025 09:25 AM [facility]
--- OUTSIDE RECORDS SUMMARY | 2025-08-21 08:54 | XMS_ITS | Patient Health Record ---
Author Organization [facility] [place] Address [address] [facility] [place] [address] Care Team Providers Care Detail Sergeant Name Role Phone Louann CARRILLO, Marilynn Fry Primary Care Provider Un available Roxana Arevalo Unavailable [phone] Allergies Allergen (clinical drug ingredient) Drug/Non Drug [...] Date Status Custom Orthotics as directed 04/13/2019 Not-Taking Nasacort AQ Not-Taki ng Xyzal Not-Taking Benadryl Allergy 25 MG 1 tablet as neede d Orally every 8 hrs Not-Taking Diclofenac Not-Takin g EpiPen 2-Bud 0.3 MG/0.3ML as directed Injection Active Terbinafine HCl 250 MG 1 tablet daily fo r 7 days, then 3 weeks off Orally Once a day; Duration: 90 days 02/28/2025 Active Ibuprofen 600 MG 1 tablet with food o r milk as needed Orally Three times a day Active LORazepam 0.5 MG 1 tablet at bedtime as needed Orally Once a day Active Metoprolol Succinate 25 MG 1 capsule Orally Once a day Active Immunizations Vaccine Route Administration Date Status Comme nts Influenza Unknown 07/01/2025 Refused Social History Tobacco Use: Social History Observation [...] Status Risk Notes Problem Acquired hallux valgus (17446817) Hallux valgus (acquired), left foot (M20.12) Active confirmed Vital Signs Blood pressure diastolic 80 mm Hg 07/01/2025 Height 5ft7in in 07/01/2025 Blood pressure systolic 127 mm Hg 07/01/2025 Weight 170 lbs 07/01/2025 BMI 26.62 kg/m2 07/01/2025 Encounters Encounter Location Date Provider Diagnosis [facility] [address] 02/27/2025 Roxana Arevalo Pain in right toe(s) M79.674 ; Onychomycosis B35.1 and Pain in left toe(s) M79.[address] [address] 07/01/2025 Roxana Arevalo Pain in right toe(s) M79.674 ; Onychomycosis B35.1 and Pain in left toe(s) M79.[address] [address] 02/28/2025 Roxana Arevalo [address] [address] 03/11/2025 Roxana Arevalo Assessments Encounter Date Diagnosis (ICD Code) Assessment Notes Treatment Notes Treatment Clinical Notes Section Notes 02/27/2025 Pain in right toe(s) (ICD-10 - M79.674) 02/27/2025 Onychomycosis (ICD-10 - B35.1) 07/01/2025 Pain in right toe(s) (ICD-10 - M79.674) 07/01/2025 Onychomycosis (ICD-10 - B35.1) 02/27/2025 Pain in left toe(s) (ICD-10 - M79.675) 07/01/2025 Pain in left toe(s) (ICD-10 - M79.675) Plan Of Treatment Pending Test Test Name Order Date Tc99 3 phase Bone Scan 04/03/2019 *Liver Function Test (LFT) 02/27/2025 X ray : Foot, left 3V 04/03/2019 Insurance Providers Payer Name Payer Address Payer Phone Subscriber Number Group Number Insured Name Patient Relationship to Insured Coverage Start Date Coverage End Date [facility] All Others [address] [place] [address] [phone] [id number] Babak Diaz Spouse - patient is [...]
--- OUTSIDE RECORDS SUMMARY | 2025-08-21 08:54 | XMS_ITS | Patient Health Record ---
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 Name Role Phone Louann CARRILLO, Marilynn Primary Care Provider Nilo Eid Unavailable [phone] Vannesa Camarillo Unavailable Unavailable Allergies Allergen (clinical drug ingredient) Drug/Non Drug Allergy documented on EMR Reaction Allergy Type Onset Date Status sensitvity to pain meds (uncoded) Unknown Allergy Active Reason For Referral No Information Medications Medication SIG (Take, Route, Frequency, Duration) Notes Start Date End Date Status Ibuprofen 800 MG Tablet 1 tablet with food or milk as needed Orally Three times a day Active Nasacort Allergy 24HR 55 MCG/ACT Aerosol 1 spray in each nostril Nasally Once a day; Duration: 30 day(s) Active LORazepam 0.5 MG Tablet (Schedule IV Drug) TAKE 1 TABLET BY MOUTH 1/2 HR BEFORE TRAVEL NEEDED Oral; Duration: 5 Not-Taking/PRN Aspirin 81 81 MG Tablet Delayed Release 1 tablet Orally Once a day; Duration: 30 day(s) Active Diclofenac Sodium 1 % Gel APPLY 2 GMTO AFECTED AREA DIRECTED 2 TIMES DAILY NEEDED FOR PAIN TRANSDERMAL Transdermal; Duration: 25 Not-Taking/PRN Immunizations Vaccine Route Administration Date Status Comme nts Influenza Unknown 10/06/2019 Administered Social History Tobacco Use: Social History Observation Description Date Details (start date - stop date) Current Smoker NA - NA Social History Drugs/Alcohol: Social Info Question Answer Notes Alcohol Screen Did you have a drink containing alcohol in the past year? Yes How often did you have a drink containing alcohol in the past year? Never (0 point) How many drinks did you have on a typical day when you were drinking in the past year? 1 or 2 drinks (0 point) How often did you have 6 or more drinks on one occasion in the past year? Never (0 point) Points 0 Interpretation Negative Tobacco Use: Social Info Question Answer Notes Tobacco Use/Smoking Patient is a current smoker How often do you smoke cigarettes? every day How many cigarettes a day do you smoke? 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 Section Notes: Smoker 1/2 ppd; smokes marij uana for pain(back pain, torn left hip labrum) Problems Problem Type SNOMED Code ICD Code Onset Dates Problem Status W/U Status Risk Notes Problem Screening for malignant neoplasm of colon (248779998) Encounter for screening for malignant neoplasm of colon (Z12.11) Active confirmed Problem History of adenomatous polyp of colon (134210219) History of adenomatous polyp of colon (Z86.010) Active confirmed Problem Preprocedural examination (906554502272469) Preprocedural examination (Z01.818) Active confirmed Plan Of Treatment Future Test Test Name Order Date COLONOSCOPY 02/13/2020 Insurance Providers Payer Name Payer Address Payer Phone Subscriber Number Group Number Insured Name Patient Relationship to Insured Coverage Start Date Coverage End Date [facility] [address] [place], [place] [id number] [phone] [id number] LAINEY JAVIER Self - patient is the insured Medical (General) History Medical History History ICD Code Polycythemia vera with thera peutic phlebotomy q 1 month-sees Dr. Camarillo for this Kidney stone Denies MD,DM,CVA,Lung disease,renal dise ase History of colon polyps--Dr. Wilkinson--had first exam in her 30's for evaluation of diarrhea--found precancerous polyps and has had 4 or 5 other colonoscopies with removal of polyps Mastocytosis--has an Epipen Surgical History Surgery Date(Month/Year) back surgery x 2 tubal ligation cholecystectomy jaw surgery
== END 2025-08-21 08:37 | disposition home or self-care (01) ==
LOC: HO.CT 08:36
PROVIDERS: PCP Internal Medicine; Visit Provider Physician Assistant Medical
DX: Z12.2 Encounter for screening for malignant neoplasm of respiratory organs (principal); J98.09 Other diseases of bronchus, not elsewhere classified; F17.210 Nicotine dependence, cigarettes, uncomplicated
CPT/HCPCS: 71250

== ENCOUNTER → 2025-08-21 08:38 | Outpatient (BNV) | payer BC, SELFPAY | PROVIDERS: PCP Internal Medicine; Visit Provider Radiology Diagnostic Radiology | DX: Z12.2 Encounter for screening for malignant neoplasm of respiratory organs (principal); J43.9 Emphysema, unspecified; Z87.891 Personal history of nicotine dependence | CPT/HCPCS: 71250 ==